=== PATIENT | male | born 1960 | race Caucasian/White ===

== ENCOUNTER 2019-01-21 20:25 | Emergency (ER) | payer MEDICAID ==
[~2019-01-21] VITALS: Ht 177.8 cm; Wt 81.6 kg
--- NOTE | 2019-01-21 20:58 | NUR ---
BIB. TO ER BED 2. AAO X4. NAD. AMBULATORY. C/O DIZZYNESS, LIGHTHEADEDNESS AND BLACK STOOL SINCE THIS MORNING. NO N/V. DENIES CP. NO SOB, BREATHING EVEN AND UNLABORED. AWAITING MD RECINOS
--- NOTE | 2019-01-21 21:00 | NUR ---
LAB AND EKG AT BEDSIDE
[2019-01-21 21:08] LABS: BASOPHILS # (AUTO) 0.1 /CMM (0.0-0.2); BASOPHILS % (AUTO) 0.7 % (0.0-2.0); EOSINOPHILS % (AUTO) 0.2 % (0.0-6.0); HEMATOCRIT 41 % (39-51); HEMOGLOBIN 13.9 g/dL (13.5-17.5); LYMPHOCYTES # (AUTO) 2.5 /CMM (0.8-4.8); LYMPHOCYTES % (AUTO) 21.9 % (20.0-44.0); MEAN CORPUSCULAR HGB CONC 34 g/dl (31.0-36.0); MEAN CORPUSCULAR VOLUME 102 fL (80-96); MONOCYTES % (AUTO) 8.5 % (2.0-12.0); NEUTROPHILS % (AUTO) 68.7 % (43.0-81.0); PLATELET COUNT (AUTO) 257 /CMM (150-450); RED BLOOD CELL COUNT(AUTO) 4.02 MIL/uL (4.5-6.0); WHITE BLOOD COUNT (AUTO) 11.6 K/uL (4.3-11.0)
[2019-01-21 21:12] LABS: CALCIUM, SERUM 9.1 mg/dL (8.5-10.1); CARBON DIOXIDE 25 mmol/L (21-32); CHLORIDE 102 mmol/L (98-107); CREATININE 0.8 mg/dL (0.6-1.3); GLUCOSE 110 mg/dL (74-106); POTASSIUM 4.2 mmol/L (3.5-5.1); SODIUM SERUM 140 mmol/L (136-145); UREA NITROGEN, BLOOD 18 mg/dL (7-18)
[2019-01-21 21:17] LABS: ALANINE AMINOTRANSFERASE 74 U/L (12-78); ALKALINE PHOSPHATASE 84 U/L (46-116); ASPARTATE AMINOTRANSFERASE 84 U/L (15-37); BILIRUBIN,DIRECT 0.1 mg/dL (0.0-0.2); BILIRUBIN,TOTAL 0.4 mg/dL (0.2-1.0)
[2019-01-21] MEDS: NICOTINE PATCH (14MG) 14 MG PATCH.TD24 TD ONE (22:45)
--- NOTE | 2019-01-21 22:45 | NUR ---
NICOTINE PATCH PLACED ON PATIENT. PATCH WAS TAKEN FROM THE FLOOR D/T NICOTINE OATCH NOT AVAILABLE AT [facility] IN ER.
--- NOTE | 2019-01-21 22:46 | NUR ---
RECEIVED A CALL FROM CHRIS SCOTT OF [facility].
[2019-01-21] MEDS: NICOTINE PATCH (14MG) 14 MG PATCH.TD24 TD SCH (22:59)
--- NOTE | 2019-01-21 23:00 | NUR ---
PT ACCEPTED TO [facility], TELE 120-B. ACCEPTED BY DR OSEGUERA. # FOR REPORT [phone]
--- NOTE | 2019-01-21 23:08 | NUR ---
CINDY OCPPOLA ETA 0100 HOURS TRIP#[id number]
[2019-01-21] MEDS: IV NS 0.9% 1,000 ML BAG IV ONE (23:14)
[2019-01-21] MEDS: LORAZEPAM INJ 2 MG/ML VIAL IV ONE (23:50)
--- NOTE | 2019-01-21 23:51 | NUR ---
PT RECEIVED ATIVAN 1MG IV. STOCK DOSE 2MG /ML. WASTED 1MG =0.5ML WITNESSED BY JAI LOREDO
--- NOTE | 2019-01-22 01:21 | NUR ---
REPORT GIVEN TO JAI DELA CRUZ. AMBULANZ AT BEDSIDE TO SKEIN YARN DYER PT. PT IS AAOX4. NAD. BREATHING EVEN AND UNLBORED.
[2019-01-22 01:22] VITALS: BP 139/85
== END 2019-01-22 01:30 ==
LOC: ER 20:31
DX: K92.2 Gastrointestinal hemorrhage, unspecified (principal); R42 Dizziness and giddiness; F10.10 Alcohol abuse, uncomplicated; F17.200 Nicotine dependence, unspecified, uncomplicated; Y90.9 Presence of alcohol in blood, level not specified
CPT/HCPCS: 36415; 71045; 80048; 80076; 84484; 85025; 85730; 86850; 93005; 96361; 96374; 99285; J2060; J7030

== ENCOUNTER 2019-05-03 11:22 | Inpatient (IN) | payer MEDICAID ==
[~2019-05-03] VITALS: Ht 177.8 cm; Wt 79.4 kg
[2019-05-03 11:56] LABS: BASOPHILS % (AUTO) 0.4 % (0.0-2.0); EOSINOPHILS % (AUTO) 0.1 % (0.0-6.0); HEMATOCRIT 43 % (39-51); HEMOGLOBIN 14.6 g/dL (13.5-17.5); LYMPHOCYTES # (AUTO) 1.6 /CMM (0.8-4.8); LYMPHOCYTES % (AUTO) 18.3 % (20.0-44.0); MEAN CORPUSCULAR HGB CONC 34 g/dl (31.0-36.0); MEAN CORPUSCULAR VOLUME 102 fL (80-96); MONOCYTES # (AUTO) 0.7 /CMM (0.1-1.30); MONOCYTES % (AUTO) 8.6 % (2.0-12.0); NEUTROPHILS # (AUTO) 6.2 /CMM (1.8-8.9); NEUTROPHILS % (AUTO) 72.6 % (43.0-81.0); PLATELET COUNT (AUTO) 187 /CMM (150-450); RED BLOOD CELL COUNT(AUTO) 4.25 MIL/uL (4.5-6.0); WHITE BLOOD COUNT (AUTO) 8.6 K/uL (4.3-11.0)
[2019-05-03] MEDS ORDERED: PANTOPRAZOLE 40 MG VIAL ONE (11:56)
[2019-05-03] MEDS ORDERED: ONDANSETRON HCL/PF 4 MG/2 ML VIAL ONE (11:57)
[2019-05-03] MEDS ORDERED: LORAZEPAM INJ 2 MG/ML VIAL ONE ×2 (11:57→13:01)
[2019-05-03] MEDS ORDERED: OCTREOTIDE 100 MCG/ML VIAL ONE (11:57)
[2019-05-03] MEDS ORDERED: PANTOPRAZOLE 80 MG in IV NS 0.9% 500 ML IV ONE (12:00)
[2019-05-03] MEDS ORDERED: NEXIUM 40 MG VIAL IV ONE ×2 (12:00→12:30)
[2019-05-03] MEDS ORDERED: ONDANSETRON HCL/PF 4 MG/2 ML VIAL IVP ONE (12:00)
[2019-05-03] MEDS ORDERED: LORAZEPAM INJ 2 MG/ML VIAL IV ONE (12:00)
[2019-05-03] MEDS ORDERED: OCTREOTIDE 50 MCG/ML AMPUL IV ONE (12:00)
[2019-05-03] MEDS ORDERED: PANTOPRAZOLE 40 MG VIAL IV ONE (12:00)
[2019-05-03] MEDS ORDERED: IV NS 0.9% 1,000 ML BAG IV ONE ×2 (12:00→13:00)
[2019-05-03 12:06] LABS: CREATININE 0.8 mg/dL (0.6-1.3); POTASSIUM 4.3 mmol/L (3.5-5.1)
[2019-05-03] MEDS ORDERED: NICO-676 TD (12:06)
[2019-05-03 12:12] LABS: ALBUMIN 4.2 g/dL (3.4-5.0); BILIRUBIN,DIRECT 0.2 mg/dL (0.0-0.2); BILIRUBIN,TOTAL 0.6 mg/dL (0.2-1.0)
[2019-05-03] MEDS ORDERED: LORAZEPAM INJ 2 MG/ML VIAL IVP ONE (13:00)
[2019-05-03 16:08] VITALS: BP 123/70
[2019-05-03] MEDS: PANTOPRAZOLE 40 MG TABLET.DR PO SCH (17:02)
[2019-05-03] MEDS: FOLIC ACID 1 MG TABLET PO SCH (17:58)
[2019-05-03] MEDS: THIAMINE HCL 100 MG TABLET PO SCH (17:59)
[2019-05-03] MEDS: LORAZEPAM 1 MG TABLET PO SCH ×2 (17:59→23:06)
[2019-05-03] MEDS: MULTIVITAMINS,THERAGRAN 1 UDTAB TABLET PO SCH (17:59)
[2019-05-03] MEDS: NICOTINE PATCH (21MG) 21 MG PATCH.TD24 TD SCH (17:59)
[2019-05-03] MEDS: MAGNESIUM OXIDE 400 MG TABLET PO SCH (17:59)
[2019-05-03] MEDS ORDERED: IV NS 0.9% 1,000 ML IV PRN (18:00)
[2019-05-03 20:00] VITALS: BP 142/89
[2019-05-03 20:11] VITALS: BP 142/89
[2019-05-04] VITALS: BP 142/91
[2019-05-04 04:00] VITALS: BP 138/95
[2019-05-04] MEDS: LORAZEPAM 1 MG TABLET PO SCH ×4 (06:28→23:03)
[2019-05-04 06:37] LABS: BASOPHILS % (AUTO) 0.4 % (0.0-2.0); HEMATOCRIT 40 % (39-51); HEMOGLOBIN 13.2 g/dL (13.5-17.5); LYMPHOCYTES % (AUTO) 27.7 % (20.0-44.0); MEAN CORPUSCULAR HGB CONC 33 g/dl (31.0-36.0); MEAN CORPUSCULAR VOLUME 103 fL (80-96); MONOCYTES # (AUTO) 0.7 /CMM (0.1-1.30); NEUTROPHILS # (AUTO) 4.6 /CMM (1.8-8.9); NEUTROPHILS % (AUTO) 61.9 % (43.0-81.0); PLATELET COUNT (AUTO) 141 /CMM (150-450); RED BLOOD CELL COUNT(AUTO) 3.86 MIL/uL (4.5-6.0); WHITE BLOOD COUNT (AUTO) 7.4 K/uL (4.3-11.0)
[2019-05-04] MEDS ORDERED: PANTOPRAZOLE 40 MG TABLET.DR PO SCH (07:30)
[2019-05-04 08:00] VITALS: BP 149/95
[2019-05-04] MEDS: FOLIC ACID 1 MG TABLET PO SCH (08:26)
[2019-05-04] MEDS: MULTIVITAMINS,THERAGRAN 1 UDTAB TABLET PO SCH (08:26)
[2019-05-04] MEDS: NICOTINE PATCH (21MG) 21 MG PATCH.TD24 TD SCH (08:26)
[2019-05-04] MEDS: PANTOPRAZOLE 40 MG TABLET.DR PO SCH ×2 (08:26→16:56)
[2019-05-04] MEDS: THIAMINE HCL 100 MG TABLET PO SCH (08:26)
[2019-05-04] MEDS: MAGNESIUM OXIDE 400 MG TABLET PO SCH (08:26)
[2019-05-04 16:00] VITALS: BP 149/96
[2019-05-04] MEDS ORDERED: ZOLPIDEM TARTRATE 10 MG TABLET PO PRN (19:00)
[2019-05-04 20:15] VITALS: BP 142/87
[2019-05-05] MEDS: LORAZEPAM 1 MG TABLET PO SCH ×2 (05:03→11:56)
[2019-05-05 08:00] VITALS: BP 135/88
[2019-05-05] MEDS: MAGNESIUM OXIDE 400 MG TABLET PO SCH (08:48)
[2019-05-05] MEDS: NICOTINE PATCH (21MG) 21 MG PATCH.TD24 TD SCH (08:48)
[2019-05-05] MEDS: PANTOPRAZOLE 40 MG TABLET.DR PO SCH (08:48)
[2019-05-05] MEDS: THIAMINE HCL 100 MG TABLET PO SCH (08:48)
[2019-05-05] MEDS: MULTIVITAMINS,THERAGRAN 1 UDTAB TABLET PO SCH (08:48)
[2019-05-05] MEDS: FOLIC ACID 1 MG TABLET PO SCH (08:48)
[2019-05-05] MEDS ORDERED: MIDAZOLAM HCL 2 MG/2ML VIAL ONE (10:57)
[2019-05-05 11:48] VITALS: BP 149/88
[2019-05-05] MEDS ORDERED: SUCRALFATE 1 G/10 ML UDC PO SCH (12:00)
== END 2019-05-05 15:40 | disposition home or self-care (01) | DRG 241 ==
LOC: ER 11:25 → TELE 14:31 → MED 05-04 11:22
PROVIDERS: ADMIT Internal Medicine; ATTEND Internal Medicine
PROC: 0DB78ZX Excision of Stomach, Pylorus, Via Natural or Artificial Opening Endoscopic, Diagnostic (ICD-10-PCS; principal; 2019-05-05)
PROC: 0DB98ZX Excision of Duodenum, Via Natural or Artificial Opening Endoscopic, Diagnostic (ICD-10-PCS; principal; 2019-05-05)
DX: K29.80 Duodenitis without bleeding (principal); D75.89 Other specified diseases of blood and blood-forming organs; F10.239 Alcohol dependence with withdrawal, unspecified; M19.90 Unspecified osteoarthritis, unspecified site; Z72.0 Tobacco use; Y90.9 Presence of alcohol in blood, level not specified; K29.70 Gastritis, unspecified, without bleeding; K44.9 Diaphragmatic hernia without obstruction or gangrene; K20.9 Esophagitis, unspecified; Z82.3 Family history of stroke
CPT/HCPCS: 36415; 71045-TC; 76700-TC; 80048-TC; 80076-TC; 83690-TC; 85025-TC; 85730-TC; 86850-TC; 87081-TC; C9113; G0378; J2060; J2250; J2354; J2405; J2704; J3490; J7030

== ENCOUNTER 2019-10-21 10:22 | Emergency (ER) | payer MEDICAID, OTHER ==
[~2019-10-21] VITALS: Ht 180.3 cm; Wt 78.0 kg
[~2019-10-21 10:22] MED LIST: NICO-676 TD
[2019-10-21] MEDS ORDERED: LIDOCAINE VISCOUS 2% UD 15 ML UDC MM ONE (11:00)
[2019-10-21] MEDS ORDERED: ONDANSETRON HCL/PF 4 MG/2 ML VIAL IVP ONE (11:00)
[2019-10-21] MEDS ORDERED: LORAZEPAM INJ 2 MG/ML VIAL IV ONE (11:00)
[2019-10-21] MEDS ORDERED: MAG HYDROX/AL HYDROX/SIMETH 30 ML UDC PO ONE (11:00)
[2019-10-21] MEDS ORDERED: IV NS 0.9% 1,000 ML BAG IV ONE (11:00)
--- NOTE | 2019-10-21 11:00 | NUR ---
patient came in to the er c/o weakness, loss of appetite, +n/v and diarrhea x 1 week, on rooma ir, breathing evenly and unlabored. connected to the monitor and pulse ox. kept comfortable, will continue to monitor accordingly.
[2019-10-21] MEDS ORDERED: MAG HYDROX/AL HYDROX/SIMETH 30 ML UDC ONE ×2 (11:08→11:09)
[2019-10-21] MEDS ORDERED: LIDOCAINE VISCOUS 2% UD 15 ML UDC ONE (11:08)
[2019-10-21] MEDS ORDERED: ONDANSETRON HCL/PF 4 MG/2 ML VIAL ONE (11:09)
[2019-10-21] MEDS ORDERED: LORAZEPAM INJ 2 MG/ML VIAL ONE (11:09)
[2019-10-21 11:10] LABS: BASOPHILS % (AUTO) 0.6 % (0.0-2.0); EOSINOPHILS % (AUTO) 0.2 % (0.0-6.0); HEMATOCRIT 42 % (39-51); HEMOGLOBIN 14.2 g/dL (13.5-17.5); LYMPHOCYTES # (AUTO) 1.5 /CMM (0.8-4.8); LYMPHOCYTES % (AUTO) 21.8 % (20.0-44.0); MEAN CORPUSCULAR HGB CONC 34 g/dl (31.0-36.0); MEAN CORPUSCULAR VOLUME 103 fL (80-96); MONOCYTES # (AUTO) 0.8 /CMM (0.1-1.30); MONOCYTES % (AUTO) 11.5 % (2.0-12.0); NEUTROPHILS # (AUTO) 4.7 /CMM (1.8-8.9); NEUTROPHILS % (AUTO) 65.9 % (43.0-81.0); PLATELET COUNT (AUTO) 135 /CMM (150-450); RED BLOOD CELL COUNT(AUTO) 4.06 MIL/uL (4.5-6.0); WHITE BLOOD COUNT (AUTO) 7.1 K/uL (4.3-11.0)
[2019-10-21 11:18] LABS: CALCIUM, SERUM 9.2 mg/dL (8.5-10.1); CARBON DIOXIDE 25 mmol/L (21-32); CHLORIDE 101 mmol/L (98-107); CREATININE 0.8 mg/dL (0.6-1.3); GLUCOSE 115 mg/dL (74-106); SODIUM SERUM 137 mmol/L (136-145); UREA NITROGEN, BLOOD 11 mg/dL (7-18)
[2019-10-21 11:23] LABS: ALANINE AMINOTRANSFERASE 80 U/L (12-78); ALBUMIN 3.9 g/dL (3.4-5.0); ALKALINE PHOSPHATASE 89 U/L (46-116); ASPARTATE AMINOTRANSFERASE 133 U/L (15-37); BILIRUBIN,DIRECT 0.2 mg/dL (0.0-0.2); BILIRUBIN,TOTAL 0.7 mg/dL (0.2-1.0); TOTAL PROTEIN, SERUM 6.6 g/dL (6.4-8.2)
[2019-10-21 12:38] VITALS: BP 135/71
--- NOTE | 2019-10-21 12:38 | NUR ---
Patient discharged to home in stable condition. Written and verbal after care instructions given. Patient verbalizes understanding of instruction.IV removed. Catheter intact and site benign. Pressure and 4x4 applied to site. No bleeding noted.
== END 2019-10-21 12:38 | disposition home or self-care (01) ==
LOC: ER 10:26
DX: K29.20 Alcoholic gastritis without bleeding (principal); F10.10 Alcohol abuse, uncomplicated; R53.1 Weakness; F17.210 Nicotine dependence, cigarettes, uncomplicated; Y90.9 Presence of alcohol in blood, level not specified
CPT/HCPCS: 36415; 74176; 80048; 80076; 84484; 85025; 85730; 96361; 96374; 96375; 99284; J2060; J2405; J7030

== ENCOUNTER 2020-03-18 07:44 | Inpatient (IN) | payer MEDICAID ==
[~2020-03-18] VITALS: Ht 180.3 cm; Wt 79.4 kg
--- NOTE | 2020-03-18 08:03 | NUR ---
CAME IN FOR GENERALIZED WEAKNESS, BEEN VOMITING "BLOOD" 8 EPISODES SINCE LAST NIGHT, TO ER BED 11, HOOKED TO MONITOR, CHANGED TO HOSP GOWN, WARM BLANKET PROVIDED, PATIENT AAO x 4, BREATHING EVEN AND UNLABORED. AWAITING MD RECINOS.
--- NOTE | 2020-03-18 08:17 | NUR ---
DR ARSHAD AT BEDSIDE
[2020-03-18] MEDS ORDERED: ONDANSETRON HCL/PF 4 MG/2 ML VIAL ONE (08:29)
[2020-03-18] MEDS ORDERED: METOCLOPRAMIDE HCL 10 MG/2 ML VIAL ONE (08:29)
[2020-03-18] MEDS ORDERED: LORAZEPAM INJ 2 MG/ML VIAL ONE ×2 (08:29→11:05)
[2020-03-18] MEDS ORDERED: PANTOPRAZOLE 80 MG in IV NS 0.9% 500 ML IV ONE (08:30)
[2020-03-18] MEDS ORDERED: ONDANSETRON HCL/PF 4 MG/2 ML VIAL IVP ONE (08:30)
[2020-03-18] MEDS ORDERED: PANTOPRAZOLE 80 MG in IV NS 0.9% 100 ML IV ONE (08:30)
[2020-03-18] MEDS ORDERED: IV NS 0.9% 1,000 ML BAG IV ONE (08:30)
[2020-03-18] MEDS ORDERED: LORAZEPAM INJ 2 MG/ML VIAL IV ONE ×2 (08:30→10:00)
[2020-03-18] MEDS ORDERED: METOCLOPRAMIDE HCL 10 MG/2 ML VIAL IV ONE (08:30)
--- NOTE | 2020-03-18 08:35 | NUR ---
CALLED PHARMACY FOR PROTONIX DRIP
[2020-03-18 08:37] LABS: BASOPHILS % (AUTO) 0.3 % (0.0-2.0); HEMATOCRIT 36 % (39-51); HEMOGLOBIN 11.9 g/dL (13.5-17.5); LYMPHOCYTES # (AUTO) 1.2 /CMM (0.8-4.8); LYMPHOCYTES % (AUTO) 14.1 % (20.0-44.0); MEAN CORPUSCULAR HGB CONC 33 g/dl (31.0-36.0); MEAN CORPUSCULAR VOLUME 111 fL (80-96); MONOCYTES # (AUTO) 0.7 /CMM (0.1-1.30); MONOCYTES % (AUTO) 7.8 % (2.0-12.0); NEUTROPHILS # (AUTO) 6.5 /CMM (1.8-8.9); NEUTROPHILS % (AUTO) 77.8 % (43.0-81.0); PLATELET COUNT (AUTO) 226 /CMM (150-450); RED BLOOD CELL COUNT(AUTO) 3.22 MIL/uL (4.5-6.0); WHITE BLOOD COUNT (AUTO) 8.3 K/uL (4.3-11.0)
[2020-03-18 08:42] LABS: CALCIUM, SERUM 8.9 mg/dL (8.5-10.1); CARBON DIOXIDE 18 mmol/L (21-32); CHLORIDE 100 mmol/L (98-107); CREATININE 1.5 mg/dL (0.6-1.3); GLUCOSE 161 mg/dL (74-106); POTASSIUM 4.4 mmol/L (3.5-5.1); SODIUM SERUM 144 mmol/L (136-145); UREA NITROGEN, BLOOD 39 mg/dL (7-18)
--- NOTE | 2020-03-18 08:47 | NUR ---
CALLED PHARMACY TO FOLLOW UP FOR PROTONIX DRIP
[2020-03-18 08:49] LABS: ALANINE AMINOTRANSFERASE 129 U/L (12-78); ALBUMIN 3.9 g/dL (3.4-5.0); ALKALINE PHOSPHATASE 65 U/L (46-116); ASPARTATE AMINOTRANSFERASE 181 U/L (15-37); BILIRUBIN,DIRECT 0.5 mg/dL (0.0-0.2); BILIRUBIN,TOTAL 1.7 mg/dL (0.2-1.0); LIPASE 58 U/L (73-393)
--- NOTE | 2020-03-18 09:06 | NUR ---
CALLED PHARMACY TO FOLLOW UP FOR PROTONIX DRIP
[2020-03-18] MEDS ORDERED: CHOL500052 MT (09:07)
[2020-03-18] MEDS ORDERED: OMEP40CA13 MT (09:07)
[2020-03-18] MEDS ORDERED: LISI10TA5 MT (09:07)
--- NOTE | 2020-03-18 09:32 | NUR ---
SPOKE TO NUNU (DEVICE TEST ENGINEER [phone]) OF [facility], INFORMED THAT DEVICE TEST ENGINEER IS STILL TRYING TO GET IN TOUCH WITH ADMITTING PHYSICIAN.
--- NOTE | 2020-03-18 10:06 | NUR ---
BED ASSIGNED:315-2
--- NOTE | 2020-03-18 10:17 | NUR ---
REPORT GIVEN TO BENITO VERGARA OF TELE UNIT
[2020-03-18 10:25] LABS: BAND % (MANUAL) 3 % (0.0-5.0); LYMPHOCYTES % (MANUAL) 10 % (16-48); MONOCYTES % (MANUAL) 5 % (0-11.0); MYELOCYTES % 3 % (0-0); NEUTROPHILS % (MANUAL) 79 (42-76)
--- NOTE | 2020-03-18 11:19 | NUR ---
rn notes patient received on room air, no sob noted, patient denies pain at this time. Some N/V but not actively vomitting. R AC 18 a this time. bed at the lowest setting, call light within reach, side rails up x2.
[2020-03-18 11:23] VITALS: BP 98/83
--- NOTE | 2020-03-18 13:21 | NUR ---
rn notes Dr. Guevara made aware that his patient is admitted earlier.
[2020-03-18 16:00] VITALS: BP 131/68
[2020-03-18] MEDS: IV 1/2NS 1000 ML 1,000 ML IV PRN (16:33)
[2020-03-18] MEDS: NICOTINE PATCH (21MG) 21 MG PATCH.TD24 TD SCH (16:48)
[2020-03-18] MEDS: METOPROLOL TARTRATE 25 MG TABLET PO SCH (16:49)
[2020-03-18] MEDS: Magnesium 1GM/D5W 100ML PREMIX 100 ML IV SCH ×3 (16:49→19:00)
--- NOTE | 2020-03-18 17:11 | NUR ---
rn notes patient remains on room air, no sob noted, patient shows no sob at this time and denies pain. A/O x4 and remains tachy. Clear liquid diet at this time, lactic acid trending down. Dr. Guevara wants a GI consult and told him that he is the one to call Dr. Yu, he replied with " ER should have been the one to call him". bed at the lowest setting, call light within reach, side rails up x2.
[2020-03-18] MEDS: LORAZEPAM 1 MG TABLET PO PRN (17:45)
--- NOTE | 2020-03-18 19:30 | NUR ---
telemarketing sales representative opening notes received patient in bed. a/ox4. tolerating room air. respirations are even and unlabored. no s/s sob noted. no c/o pain at this time. external tele monitor reads sinus tachycardia hr 108. in no apparent distress. iv access in rac#18 running 1/2 ns @75ml/hr. bed is low and locked, hob elevated in semi fowlers, side rials up x2. call light within reach. will continue to monitor.
[2020-03-18 20:00] VITALS: BP 130/81
[2020-03-18 20:35] VITALS: BP 130/81
--- NOTE | 2020-03-18 22:00 | NUR ---
telecommunicator supervisor note patient signed consent for smoking. made aware this is the only time to smoke during this shift and next chance is next shift after 0700. del dunlap accompanied patient to smoking area in a wheel chair. came back at 2200. will continue to monitor.
[2020-03-19] VITALS (8 sets, daily range): BP systolic 95–121; BP diastolic 66–73
[2020-03-19] MEDS: LORAZEPAM 1 MG TABLET PO PRN ×4 (00:16→23:46)
--- NOTE | 2020-03-19 00:16 | NUR ---
PERSONAL LINES ACCOUNT EXECUTIVE NOTE ADMINISTERED PRN ATIVAN 2MG PER PATIENT REQUEST. WILL CONTINUE TO MONITOR.
--- NOTE | 2020-03-19 06:17 | NUR ---
telegraphic typewriter mechanic closing notes patient in bed. a/ox4. tolerating room air. respirations are even and unlabored. no sob noted. no c/o pain. external tele monitor reads sinus tachycardia. no distress. iv access maintained in rac#18 running 1/2 ns @75ml/hr. bed remains low and locked, hob elevated in semi fowlers, side rials up x2. call light within reach. will endorse to next shift
[2020-03-19] MEDS: PANTOPRAZOLE 40 MG TABLET.DR PO SCH (06:42)
[2020-03-19 07:36] LABS: OCCULT BLOOD STOOL NEGATIVE (NEGATIVE)
[2020-03-19 07:36] LABS: CALCIUM, SERUM 8.6 mg/dL (8.5-10.1); CREATININE 0.6 mg/dL (0.6-1.3); POTASSIUM 3.7 mmol/L (3.5-5.1)
--- NOTE | 2020-03-19 07:37 | NUR ---
assembler wire mesh gate Notes Received patient in bed resting comfortably in moderate high back rest. A/O x 4. respirations are even and unlabored. No signs of distress noted at this time. On tele monitor reads sinus tachycardia with HR of 100's. IV fluids maintained on RAC #18 running 1/2 NS @75ml/hr. Patent and intact, Safety measures in place, bed remains low and locked, side rials up x2. call light within reach. Will continue to monitor.
[2020-03-19] MEDS: FOLIC ACID 1 MG TABLET PO SCH (08:37)
[2020-03-19] MEDS: NICOTINE PATCH (21MG) 21 MG PATCH.TD24 TD SCH (08:37)
[2020-03-19] MEDS: THIAMINE HCL 100 MG TABLET PO SCH (08:37)
[2020-03-19] MEDS: MULTIVITAMINS,THERAGRAN 1 UDTAB TABLET PO SCH (08:37)
[2020-03-19] MEDS: METOPROLOL TARTRATE 25 MG TABLET PO SCH ×2 (08:38→16:37)
[2020-03-19 09:09] LABS: BASOPHILS % (AUTO) 0.6 % (0.0-2.0); EOSINOPHILS % (AUTO) 1.3 % (0.0-6.0); HEMATOCRIT 26 % (39-51); HEMOGLOBIN 8.8 g/dL (13.5-17.5); LYMPHOCYTES # (AUTO) 1.5 /CMM (0.8-4.8); LYMPHOCYTES % (AUTO) 29.5 % (20.0-44.0); MEAN CORPUSCULAR HGB CONC 34 g/dl (31.0-36.0); MEAN CORPUSCULAR VOLUME 108 fL (80-96); MONOCYTES # (AUTO) 0.2 /CMM (0.1-1.30); MONOCYTES % (AUTO) 4.6 % (2.0-12.0); NEUTROPHILS # (AUTO) 3.2 /CMM (1.8-8.9); PLATELET COUNT (AUTO) 120 /CMM (150-450); RED BLOOD CELL COUNT(AUTO) 2.38 MIL/uL (4.5-6.0); WHITE BLOOD COUNT (AUTO) 5.1 K/uL (4.3-11.0)
--- NOTE | 2020-03-19 18:49 | NUR ---
RN NOTES Patient in bed resting comfortably in moderate high back rest. A/O x 4. respirations are even and unlabored. No signs of distress noted throughout the shift. IV fluids maintained on RAC #18 running 1/2 NS @75ml/hr. Patent and intact, Safety measures in place, bed remains low and locked, side rials up x2. call light within reach. Will Endorse to night monitor nurse for lilian.
[2020-03-19] MEDS ORDERED: ANESTHESIA TRAY IN PYXIS 1 EA TRAY MC ONE (19:16)
--- NOTE | 2020-03-19 20:00 | NUR ---
MS RN OPENING NOTES RECEIVED PATIENT IN BED, AWAKE, A/0X 4, AMBULATORY, BREATHING AT ROOM, UNLABORED BREATHING, LAC #20 1/2NS @ 75ML/HR, INFORMED PATIENT REGARDING NPO AT MIDNIGHT, SIDE RAILS UP.
[2020-03-20] MEDS: IV 1/2NS 1000 ML 1,000 ML IV PRN (00:14)
--- NOTE | 2020-03-20 06:25 | NUR ---
MS RN CLOSING NOTES ENDORSED PATIENT IN BED, AWAKE, A/0X 4, AMBULATORY, BREATHING AT ROOM, UNLABORED BREATHING, LAC #20 1/2NS @ 75ML/HR INFUSING WELL, NO REDNESS OR INFILTRATION NOTED, ADVICED PATIENT NPO AT MIDNIGHT, SIDE RAILS UP FOR SAFETY.
[2020-03-20 07:00] VITALS: BP 107/63
--- NOTE | 2020-03-20 07:00 | NUR ---
MS RN OPENING NOTES RECEIVED PATIENT IN BED, AWAKE, A/0X 4, AMBULATORY, BREATHING AT ROOM, UNLABORED BREATHING, LAC #20 1/2NS @ 75ML/HR, FOR EGD PROCEDURE ALL CONSENTS HAS BEEN SIGNED. NPO POST MIDNIGHT, .CALL LIGHT PLACED WITHIN REACH. SIDE RAILS UP.
[2020-03-20] MEDS ORDERED: FENTANYL PF 100MCG/2ML AMPUL ONE (07:22)
[2020-03-20] MEDS ORDERED: MIDAZOLAM HCL 2 MG/2ML VIAL ONE (07:22)
[2020-03-20] MEDS: PANTOPRAZOLE 40 MG TABLET.DR PO SCH (07:30)
--- NOTE | 2020-03-20 07:30 | NUR ---
PT IS BROUGHT TO O.R. FOR EGD PROCEDURE WITH ALL THE CONSENTS SIGNED.PT IS NPO AND IS COMPLIANT.WITH STABLE V/S.
[2020-03-20 08:00] VITALS: BP 123/88
--- NOTE | 2020-03-20 09:20 | NUR ---
RECEIVED PT FROM O.R. S/P EGD WITH BIOPSY WITH RESULT OF GASTRITIS,DUODENITIS WITH NO BLEEDING NOTED. NO BANDING NEEDED.PT UNDERWENT GENERALIZED ANAESTHESIA WITH STABLE V/S. T97.8 BP 128/80 HR 117 RR 20 WITH O2 SAT OF 98%.PT EXPRESSED ANGER AND FRUSTRATION OF NOT BEING TREATED WELL WHILE IN O.R. WAKING HIM UP TO A JOLT THAT HE DOESN'T EVEN REMEMBER WHERE HE WAS DUE TO GEN ANAESTHESIA WHICH SCARED THE HELL OUT OF HIM STATED BY THE PT. REPORTED TO THE LAV CREWMAN. PT IS SO EAGER TO GO HOME INSPITE OF EXPLAINING THAT HE WAS GIVEN GENERAL ANAESTHESIA AND STILL TO BE MONITORED BUT PT INSISTS TO GO HOME.PT KEEP VERBALIZING THAT HE DOESN'T WANT TO COME BACK IN [facility] ANYMORE FOR BEING TREATED SO BAD. EMOTIONAL SUPPORT AND ACTIVE LISTENING PROVIDED. EXPLAINED THAT HE CAN FILE A COMPLAINT IF HE WANTS TO WITH CALM APPROACH. AM MEDS AND ATIVAN GIVEN. WILL NOTIFY DR ANDUJAR AND WILL CONTINUE TO MONITOR.
--- NOTE | 2020-03-20 09:37 | NUR ---
DR ANDUJAR RETURNED CALL WITH DISCHARGE ORDERS AND CARRIED OUT SAYING THE PT HAS PPI AT THE PT'S HOME.NOTIFIED THE PT. PT INSISTS HE WANTS TO GO HOME RIGHT AWAY AND EVEN WENT STRAIGHT TO THE ELEVATOR TO SMOKE BY HIMSELF REFUSING TO BE ACCOMPANIED BY STAFF SAYING HE IS NOT A LITTLE KID ANYMORE AND WILL COME BACK TO GET THE DISCHARGE PAPERS. CLOSELY MONITORED THE PT FROM A DISTANCE.
[2020-03-20] MEDS: MULTIVITAMINS,THERAGRAN 1 UDTAB TABLET PO SCH (09:39)
[2020-03-20] MEDS: FOLIC ACID 1 MG TABLET PO SCH (09:39)
[2020-03-20] MEDS: THIAMINE HCL 100 MG TABLET PO SCH (09:40)
[2020-03-20] MEDS: NICOTINE PATCH (21MG) 21 MG PATCH.TD24 TD SCH (09:40)
[2020-03-20] MEDS: LORAZEPAM 1 MG TABLET PO PRN (09:43)
[2020-03-20 09:44] VITALS: BP 128/80
[2020-03-20] MEDS: METOPROLOL TARTRATE 25 MG TABLET PO SCH (09:44)
--- NOTE | 2020-03-20 10:00 | NUR ---
DISCHARGED PT HOME VIA STABLE V/S WITH THE DISCHARGE INSTRUCTIONS GIVEN. ENCOURAGED PT TO STAY EXPLAINING THE RISKS AND BENEFITS OF BEING UNDER GEN ANESTHESIA, BUT PT INSISTS TO REFUSE SAYING HE IS SO UPSET AND TRAUMATIZED WITH THE O.R. STAFF FOR DOING THAT TO HIM. APPROACHED PT CALMLY AND ASSURED THAT WE WILL TAKE CARE OF HIS CONCERN, PT STILL INSISTS TO GO HOME. HE EVEN VERBALIZED THAT THE 3RD FLOOR STAFF ARE SWEET AND WONDERFUL.IV H/L REMOVED TO LT AC WITH NO BLEEDING NOTED. ACCOMPANIED PT TO THE LOBBY.PT REFUSED TO HAVE HIS BELONGINGS CHECKED AND WAS JUST VERY EAGER TO GO HOME.
== END 2020-03-20 10:45 | disposition home or self-care (01) | DRG 241 ==
LOC: ER 07:48 → TELE 10:49 → MED 03-19 08:34
PROVIDERS: ADMIT Internal Medicine; ATTEND Internal Medicine
PROC: 0DB68ZX Excision of Stomach, Via Natural or Artificial Opening Endoscopic, Diagnostic (ICD-10-PCS; principal; 2020-03-20)
DX: K29.91 Gastroduodenitis, unspecified, with bleeding (principal); E87.2 Acidosis; K70.0 Alcoholic fatty liver; K76.89 Other specified diseases of liver; K26.4 Chronic or unspecified duodenal ulcer with hemorrhage; F10.10 Alcohol abuse, uncomplicated; K52.9 Noninfective gastroenteritis and colitis, unspecified; Z72.0 Tobacco use; I70.8 Atherosclerosis of other arteries; M19.90 Unspecified osteoarthritis, unspecified site; F41.9 Anxiety disorder, unspecified; R00.0 Tachycardia, unspecified; G62.1 Alcoholic polyneuropathy; N17.0 Acute kidney failure with tubular necrosis
CPT/HCPCS: 36415; 71045-TC; 80048-TC; 80076-TC; 82272-TC; 83605-TC; 83690-TC; 84484-TC; 85025-TC; 85730-TC; 86850-TC; 87040-TC; 87081-TC; 88305-TC; 88312-TC; 88313-TC; C9113; G0378; J0330; J2060; J2250; J2405; J2704; J2765; J3010; J3475; J3490; J7030

== ENCOUNTER 2020-06-19 19:35 | Emergency (ER) | payer MEDICAID ==
[~2020-06-19] VITALS: Ht 180.3 cm; Wt 79.4 kg
[~2020-06-19 19:35] MED LIST changes: +CHOL500052 MT; +LISI10TA5 MT; +OMEP40CA13 MT
--- NOTE | 2020-06-19 19:53 | NUR ---
BIBSELF C/O EPISODE OF BLACK TARY STOOL X 3 HRS AGO. HX ULCERS. PT TO BED 1, AAOX4, -SOB, NAD NOTED, VSS, PENDING MD RECINOS
[2020-06-19] MEDS ORDERED: LORAZEPAM INJ 2 MG/ML VIAL ONE (20:57)
[2020-06-19 21:01] LABS: BASOPHILS % (AUTO) 0.4 % (0.0-2.0); EOSINOPHILS % (AUTO) 0.1 % (0.0-6.0); HEMATOCRIT 41 % (39-51); HEMOGLOBIN 13.8 g/dL (13.5-17.5); LYMPHOCYTES # (AUTO) 1.9 /CMM (0.8-4.8); LYMPHOCYTES % (AUTO) 20.4 % (20.0-44.0); MEAN CORPUSCULAR HGB CONC 34 g/dl (31.0-36.0); MEAN CORPUSCULAR VOLUME 100 fL (80-96); MONOCYTES # (AUTO) 1.1 /CMM (0.1-1.30); MONOCYTES % (AUTO) 11.9 % (2.0-12.0); NEUTROPHILS # (AUTO) 6.3 /CMM (1.8-8.9); NEUTROPHILS % (AUTO) 67.2 % (43.0-81.0); PLATELET COUNT (AUTO) 210 /CMM (150-450); RED BLOOD CELL COUNT(AUTO) 4.08 MIL/uL (4.5-6.0); WHITE BLOOD COUNT (AUTO) 9.4 K/uL (4.3-11.0)
[2020-06-19] MEDS: IV NS 0.9% 1,000 ML BAG IV ONE (21:08)
[2020-06-19] MEDS: LORAZEPAM INJ 2 MG/ML VIAL IV ONE (21:08)
[2020-06-19 21:10] LABS: CALCIUM, SERUM 9.3 mg/dL (8.5-10.1); CREATININE 0.8 mg/dL (0.6-1.3); POTASSIUM 4.2 mmol/L (3.5-5.1)
[2020-06-19 21:15] LABS: ALBUMIN 3.8 g/dL (3.4-5.0); BILIRUBIN,DIRECT 0.1 mg/dL (0.0-0.2); BILIRUBIN,TOTAL 0.4 mg/dL (0.2-1.0); TOTAL PROTEIN, SERUM 6.6 g/dL (6.4-8.2)
[2020-06-19 22:00] LABS: OCCULT BLOOD STOOL NEGATIVE (NEGATIVE)
--- NOTE | 2020-06-19 22:20 | NUR ---
Patient discharged to home in stable condition. Written and verbal after care instructions given. Patient verbalizes understanding of instruction. IV removed. Catheter intact and site benign. Pressure and 4x4 applied to site. No bleeding noted.
[2020-06-19 22:56] VITALS: BP 129/90
== END 2020-06-19 22:20 | disposition home or self-care (01) ==
LOC: ER 19:39
DX: R53.1 Weakness (principal); F10.20 Alcohol dependence, uncomplicated; R42 Dizziness and giddiness; F17.200 Nicotine dependence, unspecified, uncomplicated; Z79.899 Other long term (current) drug therapy; Y90.9 Presence of alcohol in blood, level not specified
CPT/HCPCS: 36415; 80048; 80076; 82272; 83690; 85025; 85730; 86850; 96361; 96374; 99283; J2060; J7030

== ENCOUNTER 2020-12-26 08:47 | Emergency (ER) | payer MEDICAID ==
[~2020-12-26] VITALS: Ht 180.3 cm; Wt 79.4 kg
[~2020-12-26 08:47] MED LIST changes: +LISI10TA29 MT; -LISI10TA5 MT
[2020-12-26] MEDS ORDERED: LIDOCAINE VISCOUS 2% UD 15 ML UDC ONE (09:04)
[2020-12-26] MEDS ORDERED: MAG HYDROX/AL HYDROX/SIMETH 30 ML UDC ONE (09:04)
[2020-12-26] MEDS ORDERED: ONDANSETRON HCL/PF 4 MG/2 ML VIAL ONE (09:04)
--- NOTE | 2020-12-26 09:14 | NUR ---
BIBS TO ER BED 7. AAOX4. NOT IN RESP DISTRESS. AMBULATORY. CAME IN FOR NAUSEA AND VOMMITING. PER PT, HE BEEN VOMMITING Q AM FOR THE PAST WEEKS. PT ALSO VERBALIZED THAT HE HAS POOR APPETITE FOR X 3 WEEKS, CANT KEEP FOOD DOWN. PT REPORTS THAT HE HAS GERD AND NOT TAKING ANY MEDICATION. PT IS ALSO A DAILY ALCOHOL DRINKING. PT NOTED TACHYCARDIC IN THE 130S. MD WAS AT THE BEDSIDE FOR EVAL. ORDES RECEIVED, NOTED AND CARRIED OUT. IV LINE ESTABLISHED ON LFA 18G, BLOOD DRAWN AND GIVEN TO PHELB AT BEDSIDE. PT ON MONITOR
[2020-12-26 09:30] LABS: BASOPHILS % (AUTO) 0.5 % (0.0-2.0); EOSINOPHILS % (AUTO) 0.6 % (0.0-6.0); HEMATOCRIT 37 % (39-51); HEMOGLOBIN 12.5 g/dL (13.5-17.5); LYMPHOCYTES # (AUTO) 1.8 /CMM (0.8-4.8); LYMPHOCYTES % (AUTO) 28.7 % (20.0-44.0); MEAN CORPUSCULAR HGB CONC 34 g/dl (31.0-36.0); MEAN CORPUSCULAR VOLUME 109 fL (80-96); MONOCYTES # (AUTO) 0.8 /CMM (0.1-1.30); MONOCYTES % (AUTO) 13.3 % (2.0-12.0); NEUTROPHILS # (AUTO) 3.5 /CMM (1.8-8.9); NEUTROPHILS % (AUTO) 56.9 % (43.0-81.0); PLATELET COUNT (AUTO) 135 /CMM (150-450); RED BLOOD CELL COUNT(AUTO) 3.35 MIL/uL (4.5-6.0); WHITE BLOOD COUNT (AUTO) 6.2 K/uL (4.3-11.0)
[2020-12-26] MEDS ORDERED: LIDOCAINE VISCOUS 2% UD 15 ML UDC MM ONE (09:30)
[2020-12-26] MEDS ORDERED: IV NS 0.9% 1,000 ML BAG IV ONE (09:30)
[2020-12-26] MEDS ORDERED: MAG HYDROX/AL HYDROX/SIMETH 30 ML UDC PO ONE (09:30)
[2020-12-26] MEDS ORDERED: ONDANSETRON HCL/PF 4 MG/2 ML VIAL IVP ONE (09:30)
[2020-12-26 09:39] LABS: CALCIUM, SERUM 8.8 mg/dL (8.5-10.1); CREATININE 0.8 mg/dL (0.6-1.3); POTASSIUM 3.2 mmol/L (3.5-5.1)
[2020-12-26 09:45] LABS: ALBUMIN 3.4 g/dL (3.4-5.0); BILIRUBIN,DIRECT 0.7 mg/dL (0.0-0.2); BILIRUBIN,TOTAL 1.3 mg/dL (0.2-1.0); TOTAL PROTEIN, SERUM 6.5 g/dL (6.4-8.2)
[2020-12-26] MEDS ORDERED: ONDA4TAB11 PO (09:52)
[2020-12-26] MEDS ORDERED: PANT40TA2 PO (09:52)
--- NOTE | 2020-12-26 10:17 | NUR ---
Patient discharged to home in stable condition. Written and verbal after care instructions given. Patient verbalizes understanding of instruction.IV removed. Catheter intact and site benign. Pressure and 4x4 applied to site. No bleeding noted. Pt ambulatory with a steady gait
[2020-12-26 10:18] VITALS: BP 142/82
== END 2020-12-26 10:18 | disposition home or self-care (01) ==
LOC: ER 08:53
DX: K29.70 Gastritis, unspecified, without bleeding (principal); I10 Essential (primary) hypertension; K21.9 Gastro-esophageal reflux disease without esophagitis; F17.200 Nicotine dependence, unspecified, uncomplicated; Z60.2 Problems related to living alone; Z79.899 Other long term (current) drug therapy
CPT/HCPCS: 36415; 80048; 80076; 83690; 85025; 96361; 96374; 99283; J2405; J7030

== ENCOUNTER 2021-01-14 08:53 | Inpatient (IN) | payer MEDICAID ==
[~2021-01-14] VITALS: Ht 180.3 cm; Wt 79.4 kg
[~2021-01-14 08:53] MED LIST changes: -CHOL500052 MT; +CHOL500052 PO; -LISI10TA29 MT; +LISI10TA29 PO; +ONDA4TAB11 PO; +PANT40TA2 PO
--- NOTE | 2021-01-14 09:00 | NUR ---
BIB SELF C/O VOMITING/DIARRHEA AND GEN WEAKNESS SINCE LAST NIGHT, + ALCOHOL INTAKE LAST NIGHT. THE PATIENT IS ALERT AND ORIENTED X4. DENIES PAIN. IN ROOM AIR AND DENIES SOB. RESPIRATION REGULAR AND UNLABORED. WILL CONTINUE TO MONITOR THE PATIENT.
[2021-01-14] MEDS ORDERED: TAMS-12 PO (09:01)
[2021-01-14] MEDS ORDERED: ESCI10TA PO (09:01)
--- NOTE | 2021-01-14 09:10 | NUR ---
AT BEDSIDE FOR EVAL.
[2021-01-14] MEDS ORDERED: Thiamine 100 MG/ML VIAL ONE (09:24)
[2021-01-14] MEDS ORDERED: PANTOPRAZOLE 40 MG VIAL ONE (09:24)
[2021-01-14] MEDS ORDERED: ONDANSETRON HCL/PF 4 MG/2 ML VIAL ONE (09:24)
[2021-01-14] MEDS ORDERED: Thiamine 100 MG in IV D5W 50 ML IV SCH (09:30)
[2021-01-14] MEDS ORDERED: ONDANSETRON HCL/PF 4 MG/2 ML VIAL IVP ONE (09:30)
[2021-01-14] MEDS ORDERED: PANTOPRAZOLE 40 MG VIAL IV ONE (09:30)
[2021-01-14] MEDS ORDERED: IV NS 0.9% 1,000 ML BAG IV ONE ×2 (09:30→11:00)
[2021-01-14 09:33] LABS: BASOPHILS % (AUTO) 0.3 % (0.0-2.0); CALCIUM, SERUM 7.9 mg/dL (8.5-10.1); CARBON DIOXIDE 17 mmol/L (21-32); CHLORIDE 96 mmol/L (98-107); GLUCOSE 128 mg/dL (74-106); HEMATOCRIT 39 % (39-51); HEMOGLOBIN 12.9 g/dL (13.5-17.5); LYMPHOCYTES # (AUTO) 0.5 /CMM (0.8-4.8); LYMPHOCYTES % (AUTO) 3.6 % (20.0-44.0); MEAN CORPUSCULAR HGB CONC 33 g/dl (31.0-36.0); MEAN CORPUSCULAR VOLUME 111 fL (80-96); MONOCYTES # (AUTO) 1.1 /CMM (0.1-1.30); MONOCYTES % (AUTO) 8.1 % (2.0-12.0); NEUTROPHILS # (AUTO) 11.8 /CMM (1.8-8.9); PLATELET COUNT (AUTO) 156 /CMM (150-450); POTASSIUM 3.1 mmol/L (3.5-5.1); RED BLOOD CELL COUNT(AUTO) 3.46 MIL/uL (4.5-6.0); SODIUM SERUM 140 mmol/L (136-145); UREA NITROGEN, BLOOD 10 mg/dL (7-18); WHITE BLOOD COUNT (AUTO) 13.4 K/uL (4.3-11.0)
[2021-01-14 09:42] LABS: ALANINE AMINOTRANSFERASE 107 U/L (12-78); ALBUMIN 3.4 g/dL (3.4-5.0); ALKALINE PHOSPHATASE 106 U/L (46-116); ASPARTATE AMINOTRANSFERASE 204 U/L (15-37); BILIRUBIN,DIRECT 0.7 mg/dL (0.0-0.2); BILIRUBIN,TOTAL 1.6 mg/dL (0.2-1.0); LIPASE 40 U/L (73-393); TOTAL PROTEIN, SERUM 6.3 g/dL (6.4-8.2)
[2021-01-14] MEDS ORDERED: CHLORDIAZEPOXIDE HCL 25 MG CAPSULE PO ONE (10:00)
[2021-01-14] MEDS ORDERED: IV PREMIX D5 1/2NS + KCL 1,000 ML IV ONE (10:00)
[2021-01-14] MEDS ORDERED: CHLORDIAZEPOXIDE HCL 25 MG CAPSULE ONE (10:42)
[2021-01-14] MEDS ORDERED: PIPERACILLIN /TAZOBACTAM 3.375 G in IV D5W 50 ML IV ONE (11:00)
[2021-01-14] MEDS ORDERED: ACETAMINOPHEN 325 MG TABLET PO PRN (12:00)
[2021-01-14] MEDS ORDERED: MAG HYDROX/AL HYDROX/SIMETH 30 ML UDC PO PRN (12:00)
[2021-01-14] MEDS ORDERED: MAGNESIUM HYDROXIDE 30 ML UDC PO PRN (12:00)
[2021-01-14] MEDS ORDERED: ONDANSETRON HCL/PF 4 MG/2 ML VIAL IVP PRN (12:00)
[2021-01-14] MEDS ORDERED: Z GUARD REMEDY 2 OZ OINT TP PRN (12:00)
[2021-01-14] MEDS: NICOTINE PATCH (21MG) 21 MG PATCH.TD24 TD SCH (12:25)
--- NOTE | 2021-01-14 12:30 | NUR ---
REPORT GIVEN TO NURSE DEEPA.
--- NOTE | 2021-01-14 12:31 | NUR ---
PATIENT IS TRANSFERED TO ROOM 308 IN STABLE CONDITION.
[2021-01-14] MEDS ORDERED: PIPERACILLIN /TAZOBACTAM 3.375 G in IV D5W 100 ML IV SCH (13:00)
[2021-01-14] MEDS ORDERED: PIPERACILLIN /TAZOBACTAM 3.375 G in IV D5W 50 ML IV SCH (13:00)
--- NOTE | 2021-01-14 13:17 | NUR ---
MS BRAZING MACHINE OPERATOR NOTES RECEIVED PATIENT VIA GURNEY FROM EMERGENCY DEPT. PATIENT IS A/O X 4. PATIENT IS BREATHING EVENLY AN UNLABORED ON ROOM AIR. NO SIGNS OF DISTRESS NOTED. PATIENT IS AMBULATORY AND ABLE TO MAKE NEEDS KNOWN. PATIENT HAS IV ACCESS 18 GAUGE PATENT AND INTACT FLUIDS INFUSING. PATIENT'S SKIN IS INTACT, CLEAN WARM AND DRY TO TOUCH. PATIENT WAS ORIENTED TO THE ROOM AND HOW TO USE THE CALL LIGHT. SAFETY MEASURES IN PLACE BED LOW LOCKED AND CALL LIGHT WITHIN REACH. BELONGINGS ARE ACCOUNTED FOR. WILL CONTINUE TO MONITOR.
[2021-01-14] MEDS: LORAZEPAM INJ 2 MG/ML VIAL IV PRN ×2 (13:22→18:52)
[2021-01-14 13:52] VITALS: BP 100/67
--- NOTE | 2021-01-14 15:44 | NUR ---
RN NOTES PATIENT WAS NOTED WITH HEART RATE OF 130 DURING ROUTINE VITAL SIGNS. NOTIFIED MD AND HE STATED NNO CONTINUE TO MONITOR ON MED SURGE.
[2021-01-14 16:00] VITALS: BP 108/87
[2021-01-14] MEDS: PIPERACILLIN /TAZOBACTAM 3.375 G in IV D5W 100 ML IV SCH (16:22)
--- NOTE | 2021-01-14 18:34 | NUR ---
MS RN CLOSING NOTES PATIENT IS A/O X 4. PATIENT IS BREATHING EVENLY AN UNLABORED ON ROOM AIR. NO SIGNS OF DISTRESS NOTED. PATIENT IS AMBULATORY AND ABLE TO MAKE NEEDS KNOWN. PATIENT HAS IV ACCESS RAC 18 GAUGE PATENT AND INTACT FLUIDS INFUSING. PATIENT'S SKIN IS INTACT, CLEAN WARM AND DRY TO TOUCH. PATIENT WAS ORIENTED TO THE ROOM AND HOW TO USE THE CALL LIGHT. SAFETY MEASURES IN PLACE BED LOW LOCKED AND CALL LIGHT WITHIN REACH
[2021-01-14 20:00] VITALS: BP 142/60
--- NOTE | 2021-01-14 20:00 | NUR ---
MS RN OPENING NOTES PATIENT IS AWAKE AND LYING IN BED AT THIS TIME. PATIENT IS A/O X 4. PATIENT IS IN NO RESPIRATORY DISTRESS. PATIENT IS AMBULATORY. PATIENT HAS AN INTRAVENOUS ACCESS ON RAC GAUGE #18. INTRAVENOUS ACCESS IS INTACT, PATENT, AND FLUSHES WELL.SAFETY MEASURES KEPT IN PLACE. CALL LIGHT IS WITHIN WITHIN REACH OF THE PATIENT. WILL CONTINUE TO MONITOR THE PATIENT.
--- NOTE | 2021-01-14 21:30 | NUR ---
MS RN NOTES This was an unwitnessed fall. The patient stated that he got up from lying on his bed and fell on the floor because he was trying to walk to the bathroom. After the fall, the patient's vital signs were stable. After the fall, the patient had no injuries from the fall. Before the patient fell, the Certified Nurse Road Commissioner asked the patient if he wanted a bedside commode instead of walking to the bathroom. The patient refused to have a bedside commode close by his bed.
[2021-01-15] MEDS: PIPERACILLIN /TAZOBACTAM 3.375 G in IV D5W 100 ML IV SCH ×3 (00:31→18:13)
[2021-01-15] MEDS: LORAZEPAM INJ 2 MG/ML VIAL IV PRN ×4 (00:44→21:14)
--- NOTE | 2021-01-15 03:10 | NUR ---
MS RN NOTES PATIENT PULLED OUT HIS INTRAVENOUS ACCESS ON RAC. A NEW INTRAVENOUS ACCESS WAS PLACED ON RIGHT WRIST GAUGE #22. WILL CONTINUE TO MONITOR THE PATIENT.
[2021-01-15 06:47] LABS: BASOPHILS % (AUTO) 0.4 % (0.0-2.0); HEMATOCRIT 33 % (39-51); HEMOGLOBIN 11.4 g/dL (13.5-17.5); LYMPHOCYTES # (AUTO) 1.1 /CMM (0.8-4.8); MEAN CORPUSCULAR HGB CONC 35 g/dl (31.0-36.0); MEAN CORPUSCULAR VOLUME 111 fL (80-96); MONOCYTES # (AUTO) 0.6 /CMM (0.1-1.30); MONOCYTES % (AUTO) 13.3 % (2.0-12.0); NEUTROPHILS # (AUTO) 2.5 /CMM (1.8-8.9); NEUTROPHILS % (AUTO) 59.3 % (43.0-81.0); PLATELET COUNT (AUTO) 96 /CMM (150-450); RED BLOOD CELL COUNT(AUTO) 2.96 MIL/uL (4.5-6.0); WHITE BLOOD COUNT (AUTO) 4.3 K/uL (4.3-11.0)
--- NOTE | 2021-01-15 07:00 | NUR ---
MS RN CLOSING NOTES PATIENT IS AWAKE AND LYING IN BED AT THIS TIME. PATIENT IS A/O X 4. PATIENT IS IN NO RESPIRATORY DISTRESS. PATIENT IS AMBULATORY. PATIENT HAS AN INTRAVENOUS ACCESS ON RIGHT WRIST GAUGE #22. INTRAVENOUS ACCESS IS INTACT, PATENT, AND FLUSHES WELL. SAFETY MEASURES KEPT IN PLACE. CALL LIGHT IS WITHIN WITHIN REACH OF THE PATIENT. WILL ENDORSE CARE TO NEXT SHIFT NURSE.
--- NOTE | 2021-01-15 07:35 | NUR ---
MS RN OPENING NOTES RECEIVED PATIENT IN BED, AWAKE, RESTING COMFORTABLY, A/O X4. PATIENT ON ROOM AIR; BREATHING EVEN AND UNLABORED. NO COMPLAINS OF PAIN AT THIS TIME. R WRIST G #22 IV ACCESS PRESENT AND INTACT. SAFETY PRECAUTIONS IN PLACE; BED IN LOW POSITION AND LOCKED, RAILS UPX2, CALL LIGHT WITHIN REACH. WILL CONTINUE TO MONITOR PATIENT.
[2021-01-15 08:00] VITALS: BP 129/82
[2021-01-15 08:07] LABS: BAND % (MANUAL) 8 % (0.0-5.0); EOSINOPHILS % (MANUAL) 2 % (0-4); LYMPHOCYTES % (MANUAL) 26 % (16-48); MONOCYTES % (MANUAL) 11 % (0-11.0); NEUTROPHILS % (MANUAL) 53 (42-76)
[2021-01-15] MEDS: NICOTINE PATCH (21MG) 21 MG PATCH.TD24 TD SCH (08:27)
[2021-01-15] MEDS: PANTOPRAZOLE 40 MG VIAL IV SCH (08:27)
[2021-01-15] MEDS: ENOXAPARIN SODIUM 40 MG/0.4 ML DISP.SYRIN SQ SCH (08:28)
[2021-01-15] MEDS: THIAMINE HCL 100 MG TABLET PO SCH (08:28)
[2021-01-15 09:16] LABS: CALCIUM, SERUM 7.7 mg/dL (8.5-10.1); CREATININE 0.8 mg/dL (0.6-1.3); MAGNESIUM 1.4 mg/dL (1.8-2.4); PHOSPHORUS 1.8 mg/dL (2.5-4.9)
[2021-01-15 09:19] LABS: THYROID STIMULATING HORMONE 2.687 uIU/mL (0.358-3.74)
[2021-01-15 09:22] LABS: POTASSIUM 2.7 mmol/L (3.5-5.1)
--- NOTE | 2021-01-15 09:28 | NUR ---
MS RN NOTES RECEIVED CALL FROM LAB REGARDING CRITICAL LAB FOR POTASSIUM OF 2.7. CONTACTED AND MADE AWARE.
[2021-01-15] MEDS ORDERED: Magnesium 1GM/D5W 100ML PREMIX PIGGYBACK IV ONE (09:30)
[2021-01-15] MEDS ORDERED: POTASSIUM CHLORIDE 20 MEQ TAB.PRT.SR PO ONE ×2 (09:30→13:00)
[2021-01-15] MEDS ORDERED: MGSO4/D5W 100 ML IV SCH (10:00)
[2021-01-15] MEDS ORDERED: K PHOS NEUTRAL 250 MG TABLET PO ONE (13:00)
[2021-01-15 16:00] VITALS: BP 129/81
--- NOTE | 2021-01-15 18:57 | NUR ---
MS RN CLOSING NOTES PATIENT REMAINS IN BED, AWAKE, RESTING COMFORTABLY, A/O X4. PATIENT ON ROOM AIR; BREATHING EVEN AND UNLABORED. NO COMPLAINS OF PAIN DURING SHIFT. R WRIST G #22 IV ACCESS PRESENT AND INTACT INFUSING ZOSYN AT THIS TIME. ALL NEEDS ATTENDED THROUGHOUT THE DAY. SAFETY PRECAUTIONS IN PLACE; BED IN LOW POSITION AND LOCKED, RAILS UPX2, CALL LIGHT WITHIN REACH. WILL ENDORSE TO LIFE ENRICHMENT ASSISTANT NURSE.
--- NOTE | 2021-01-15 19:19 | NUR ---
MS RN OPENING NOTES PATIENT IS AWAKE IN BED AT THIS TIME. PT IS ALERT AND ORIENTED X4. PATIENT IS STABLE ON ROOM AIR AND IN NO RESPIRATORY DISTRESS. PATIENT IS ABLE TO MAKE HIS NEEDS KNOWN. PATIENT HAS AN INTRAVENOUS ACCESSES ON HIS RIGHT WRIST GAUGE #22. INTRAVENOUS ACCESS IS INTACT AND PATENT. SAFETY MEASURES ARE KEPT IN PLACE. BED IS IN A LOCKED POSITION WITH SIDE RAILS UP X2. CALL LIGHT IS WITHIN REACH OF THE PATIENT. WILL CONTINUE TO MONITOR THE PATIENT.
[2021-01-15 20:00] VITALS: BP 121/81
[2021-01-16] MEDS: PIPERACILLIN /TAZOBACTAM 3.375 G in IV D5W 100 ML IV SCH ×3 (01:30→16:37)
[2021-01-16] MEDS: LORAZEPAM INJ 2 MG/ML VIAL IV PRN ×3 (06:31→19:37)
[2021-01-16 07:24] LABS: BASOPHILS % (AUTO) 0.4 % (0.0-2.0); EOSINOPHILS % (AUTO) 1.9 % (0.0-6.0); HEMATOCRIT 33 % (39-51); HEMOGLOBIN 11.6 g/dL (13.5-17.5); LYMPHOCYTES # (AUTO) 1.6 /CMM (0.8-4.8); LYMPHOCYTES % (AUTO) 32.4 % (20.0-44.0); MEAN CORPUSCULAR HGB CONC 35 g/dl (31.0-36.0); MEAN CORPUSCULAR VOLUME 112 fL (80-96); MONOCYTES # (AUTO) 0.5 /CMM (0.1-1.30); NEUTROPHILS # (AUTO) 2.8 /CMM (1.8-8.9); NEUTROPHILS % (AUTO) 56.3 % (43.0-81.0); PLATELET COUNT (AUTO) 91 /CMM (150-450); RED BLOOD CELL COUNT(AUTO) 2.97 MIL/uL (4.5-6.0)
--- NOTE | 2021-01-16 07:35 | NUR ---
MS RN OPENING NOTES RECEIVED RESIDENT AWAKE IN BED A/OX4, ABLE TO EXPRESS NEEDS, NO RESPIRATORY DISTRESS WAS OBSERVED,ON ROOM AIR, WITH IV LINE AT RT WRIST G#22 INFUSING WELL, FULL FLUIDS, NO COMPLAIN OF PAIN AND DISCOMFORT AT THIS TIME, RESIDENT IS AMBULATORY WITH SUPERVISION, BED IN LOW POSITION, CALL LIGHTS WITHIN REACH, INSTRUCT TO USE CALL LIGHTS WHEN NEED AN SSISTANCE, WILL CONTINUE TO MONITOR..
[2021-01-16 07:45] LABS: CALCIUM, SERUM 8.2 mg/dL (8.5-10.1); CREATININE 0.6 mg/dL (0.6-1.3); PHOSPHORUS 2.3 mg/dL (2.5-4.9)
[2021-01-16 07:51] LABS: POTASSIUM 2.5 mmol/L (3.5-5.1)
[2021-01-16 08:00] VITALS: BP 129/83
[2021-01-16] MEDS: IV NS 0.9% 1,000 ML IV PRN (08:21)
[2021-01-16] MEDS ORDERED: POTASSIUM CHLORIDE 20 MEQ TAB.PRT.SR PO ONE ×3 (09:00→16:00)
[2021-01-16] MEDS ORDERED: Magnesium 1GM/D5W 100ML PREMIX PIGGYBACK IV ONE (09:00)
[2021-01-16] MEDS ORDERED: Magnesium 1GM/D5W 100ML PREMIX 100 ML IV SCH (09:30)
[2021-01-16] MEDS ORDERED: NEUTRA PHOS 1 POWD.PACKET PO ONE (09:30)
[2021-01-16] MEDS: PANTOPRAZOLE 40 MG VIAL IV SCH (09:59)
[2021-01-16] MEDS: NICOTINE PATCH (21MG) 21 MG PATCH.TD24 TD SCH (10:00)
[2021-01-16] MEDS: THIAMINE HCL 100 MG TABLET PO SCH (10:00)
[2021-01-16] MEDS: ENOXAPARIN SODIUM 40 MG/0.4 ML DISP.SYRIN SQ SCH (10:01)
--- NOTE | 2021-01-16 12:48 | NUR ---
ATIVAN GIVEN 1 MG OR .05 ML IVP AT 1239 WITH PS-8 AT THE ABDOMNINAL AREA
[2021-01-16 16:00] VITALS: BP 135/89
[2021-01-16] MEDS: MORPHINE SULFATE INJ 2 MG/ML DISP.SYRIN IV PRN (16:18)
--- NOTE | 2021-01-16 16:32 | NUR ---
RN NOTES PT SEEN AND EVALUATED BY DR ARZOLA WITH ORDER TO DO OBTAIN CONSENT FOR COLONOSCOPY ON 01/18/21. NPO POST MIDNIGHT ON 01/17/21. START GOLYTELY TOMORROW AFTERNOON AND CLEAR LIQUIDS TOMORROW MORNING. WILL CARRY OUT ORDERS.
--- NOTE | 2021-01-16 17:24 | NUR ---
RN NOTES DR ARZOLA EXPLAINED COLONOSCOPY PROCEDURE TO PT TO BE DONE ON 01/18/21. PT SIGNED ALL CONSENTS AND FILED IN HIS CHART. WILL ENDORSED
--- NOTE | 2021-01-16 19:14 | NUR ---
MS RN CLOSING NOTES PATIENT SLEEP IN BED COMFORTABLY,AROUSABLE WITH VERBAL STIMULI, BED IN LOW POSITION, CALL LIGHTS WITHIN REACH, NO COMPLAIN OF PAIN AND DISCOMFORT, ON ROOM AIR. AMBULATE WITH SUPERVISION WITH ONGOING IV AT RT WRIST,INFUSING WELL, PATIENT IS MED COMPLIANT, KEPT CLEAN AND DRY, ALL NEEDS ARE MET, ENDORSE TO PRODUCTION GENERALIST NURSE FORCONTINUITY OF PLAN OF CARE.
--- NOTE | 2021-01-16 19:30 | NUR ---
MS RN OPENING NOTES PATIENT IS AWAKE IN BED AT THIS TIME. PT IS ALERT AND ORIENTED X3. PATIENT IS STABLE ON ROOM AIR AND IN NO RESPIRATORY DISTRESS. PATIENT IS ABLE TO MAKE HIS NEEDS KNOWN. PATIENT HAS AN INTRAVENOUS ACCESS ON HIS RIGHT WRIST GAUGE #22. INTRAVENOUS ACCESS IS INTACT AND PATENT. SAFETY MEASURES ARE KEPT IN PLACE. BED IS IN A LOCKED POSITION WITH SIDE RAILS UP X2. CALL LIGHT IS WITHIN REACH OF THE PATIENT. WILL CONTINUE TO MONITOR THE PATIENT.
[2021-01-16 20:00] VITALS: BP 131/83
--- NOTE | 2021-01-16 22:51 | NUR ---
RN MS NOTES CERTIFIED NURSE INSPECTOR WREATH CHECKED PATIENT'S HEART RATE AT 2000 AND IT WAS 99 BEATS PER MINUTE. PATIENT'S HEART RATE WAS RECHECKED AT 2235 AND THE HEART RATE WAS 99 BEATS PER MINUTE.
[2021-01-17] MEDS: PIPERACILLIN /TAZOBACTAM 3.375 G in IV D5W 100 ML IV SCH ×2 (00:11→09:10)
[2021-01-17] MEDS: IV NS 0.9% 1,000 ML IV PRN (01:36)
[2021-01-17] MEDS: LORAZEPAM INJ 2 MG/ML VIAL IV PRN ×4 (01:37→21:46)
[2021-01-17 07:06] LABS: BASOPHILS % (AUTO) 0.5 % (0.0-2.0); HEMATOCRIT 32 % (39-51); HEMOGLOBIN 11.1 g/dL (13.5-17.5); LYMPHOCYTES # (AUTO) 1.5 /CMM (0.8-4.8); LYMPHOCYTES % (AUTO) 40.4 % (20.0-44.0); MEAN CORPUSCULAR HGB CONC 35 g/dl (31.0-36.0); MEAN CORPUSCULAR VOLUME 111 fL (80-96); MONOCYTES # (AUTO) 0.4 /CMM (0.1-1.30); MONOCYTES % (AUTO) 9.7 % (2.0-12.0); NEUTROPHILS # (AUTO) 1.7 /CMM (1.8-8.9); NEUTROPHILS % (AUTO) 45.4 % (43.0-81.0); PLATELET COUNT (AUTO) 99 /CMM (150-450); RED BLOOD CELL COUNT(AUTO) 2.91 MIL/uL (4.5-6.0); WHITE BLOOD COUNT (AUTO) 3.8 K/uL (4.3-11.0)
--- NOTE | 2021-01-17 07:16 | NUR ---
MS RN CLOSING NOTES PATIENT LAST SEEN SLEEPING IN BED AT THIS TIME. PT IS ALERT AND ORIENTED X3. PATIENT IS STABLE ON ROOM AIR AND IN NO RESPIRATORY DISTRESS. PATIENT IS ABLE TO MAKE HIS NEEDS KNOWN. PATIENT HAS AN INTRAVENOUS ACCESS ON HIS RIGHT WRIST GAUGE #22. INTRAVENOUS ACCESS IS INTACT AND PATENT. SAFETY MEASURES ARE KEPT IN PLACE. BED IS IN A LOCKED POSITION WITH SIDE RAILS UP X2. CALL LIGHT IS WITHIN REACH OF THE PATIENT. ENDORSED CARE TO DAY SHIFT NURSE.
--- NOTE | 2021-01-17 07:22 | NUR ---
MS RN OPENING NOTES PATIENT SLEEP IN BED COMFORTABLY, RESPONSIVE TO VERBAL STIMULI. ALERT AND ORIENTED X3. AMBULATORY WITH ASSISTANCE, ON ROOM AIR, NO SOB AND OR NO RESPIRATORY DISTRESS WAS OBSERVE. NO COMPLAIN OF PAIN AND DISCOMFORT AT THIS TIME, PATIENT IS ABLE TO MAKE NEEDS KNOWN. TALISHA IV ACCESS ON RIGHT WRIST GAUGE #22, INTACT AND PATENT. BED IN LOW POSITION, CALL LIGHTS WITHIN REACH, SIDE RAILS UP X2. WILL CONTINUE TO MONITOR.
[2021-01-17 07:28] LABS: CREATININE 0.6 mg/dL (0.6-1.3); POTASSIUM 2.9 mmol/L (3.5-5.1)
[2021-01-17 08:00] VITALS: BP 111/72
[2021-01-17] MEDS ORDERED: POTASSIUM CHLORIDE 20 MEQ TAB.PRT.SR PO ONE ×3 (08:30→16:00)
[2021-01-17] MEDS: FAMOTIDINE/PF INJ 20 MG/2 ML VIAL IV SCH ×2 (09:10→21:46)
[2021-01-17] MEDS: THIAMINE HCL 100 MG TABLET PO SCH (09:10)
[2021-01-17] MEDS: NICOTINE PATCH (21MG) 21 MG PATCH.TD24 TD SCH (09:29)
[2021-01-17] MEDS: ENOXAPARIN SODIUM 40 MG/0.4 ML DISP.SYRIN SQ SCH (09:49)
--- NOTE | 2021-01-17 10:01 | NUR ---
RN NOTES PATIENT VERBALIZED ANXIETY AND REQUEST MEDICATION: LORAZEPAM 1 MG GIVEN IVP,AT 1001, WILL CONTINUE TO MONITOR.
[2021-01-17] MEDS ORDERED: K PHOS NEUTRAL 250 MG TABLET PO ONE (11:30)
--- NOTE | 2021-01-17 14:45 | NUR ---
Social Service Consult: technology services manager consult requested for alcohol use. Patient is a 60-year-old, male. SW met with the patient at his hospital bed in the med-surg unit. Patient is alert and oriented x4. Patient is calm and resting. Per patients chart, patient was brought in by self on 01/14/2021 for general weakness. Patient stated that he currently lives alone at [address] [facility], [place] [address]; [phone]. SW assessed if patient has a source of income and patient stated that he has no income. Patient stated that he has some social support from his friend Kris [phone]. SW assessed patients history of substance use and patient stated he has a history of alcohol and cigarette use. Patient stated that he drinks about five drinks daily and smokes around 2 packs of cigarettes per day. Patient denies any history of mental illness and any current thoughts of suicide or homicide. SW discussed discharge plans with the patient. Patient stated that he plans to return to his prior living arrangement at home. SW offered the patient substance abuse resources for drugs and alcohol. Patient accepted the resources and thanked this SW. PLAN: Patient stated he will be returning to his prior living arrangement. No further SS interventions at this time, however SW will remain available as needed. Substance use resources provided included: [facility]stance Abuse Self-Helpline ([facility]) ; [facility] [address] [place] [address] ; [place] [id number] [facility] [address] ; [facility] [address] [address] ; [facility] [address] [facility] [address] ; [facility] [address] [facility] [phone] ; [employer] [place]; [facility] [place]; [facility]; Alcoholics Anonymous [phone]
[2021-01-17] MEDS ORDERED: PEG 3350/NA SULF,BICARB,CL/KCL 4,000 ML BOTTLE PO ONE (16:00)
--- NOTE | 2021-01-17 16:19 | NUR ---
RN NOTES RECEIVED CALL FROM [facility] MICROBIOLOGY DEPT THAT PT'S STOOL CULTURE SHOWED PRESENCE OF CAMPYLOBACTER ANTIGEN. TRISTIN WADSWORTH MADE AWARE WITH ORDERS TO DC ZOSYN AND START LEVAQUIN 500MG IV Q24HRS. WILL CARRYOUT ORDERS.
--- NOTE | 2021-01-17 16:45 | NUR ---
RN NOTES: PATIENT VERBALIZED ANXIETY, ATIVAN 1MG GIVEN IVP, REMAINING DISCARD WITNESS MADE AWARE BY PRECEPTOR JOHN, WILL CONTINUE TO MONITOR.
[2021-01-17] MEDS ORDERED: LEVOFLOXACIN 500 MG /D5W 100ML 500 MG in PREMIX 1 EA IV SCH (17:00)
--- NOTE | 2021-01-17 18:52 | NUR ---
MS RN CLOSING NOTES PATIENT AWAKE IN BED, ALERT AND ORIENTED X3. PATIENT IS STABLE ON ROOM AIR, NO SOB RESPIRATORY DISTRESS. PATIENT IS ABLE TO MAKE HIS NEEDS KNOWN. PATIENT HAS AN INTRAVENOUS ACCESS ON HIS RIGHT WRIST GAUGE #22, INTACT AND PATENT. ON CLEAR LIQUID NPO POST MIDNIGHT, FOR COLONOSCOPY TOMMORROW, WITH ONGOING IV ANTIBIOTICS AT 66ML/HR, AMBULATORY WITH SUPERVISION, SA BED IS IN A LOW POSITION, CALL LIGHTS WITHIN REACH, SIDE RAILS UP, WILL ENDORSED CARE TO DAY SHIFT NURSE.
--- NOTE | 2021-01-17 19:30 | NUR ---
MS RN NOTES PATIENT IN BED. A/OX4. NO S/S OF DISTRESS. NO C/O PAIN AT THE MOMENT. ISOLATION IN PLACE. SAFETY IN PLACE: BED IN LOWEST, LOCKED POSITION; CALL LIGHT WITHIN REACH. WILL CONTINUE TO MONITOR.
[2021-01-17 20:00] VITALS: BP 132/85
[2021-01-17] MEDS: POTASSIUM CL. PREMIX PERIPHER. 50 ML IV SCH ×4 (21:00→23:00)
--- NOTE | 2021-01-17 21:45 | NUR ---
MS RN NOTES PATIENT ASKED ATIVAN. GIVEN . WILL ASSESS.
--- NOTE | 2021-01-17 23:00 | NUR ---
MS RN NOTES LEVOFLOXACIN WAS STILL RUNNING HENCE THE DELAY OF IV POTASSIUM. PATIENT COMPLAINED OF INTENSE PAIN, BURNING EVEN WITH NS RUNNING WITH POTASSIUM AND LOWERED THE RATE. FINISHED ONE BAG AND PATIENT REFUSED THE OTHER BAGS. MADE DR. PIRES KNOWN. OF NOW POTASSIUM LEVEL IS AT 2.9. MORNING SHIFT JOHN VERGARA SAID THEY GAVE 120 MG OF KDUR ALREADY AND I WAS ABLE TO HANG/FINISHED 1 BAG. PATIENT ASKING MORPHINE FOR PAIN 07/03. WILL ADMINISTER.
[2021-01-17] MEDS: MORPHINE SULFATE INJ 2 MG/ML DISP.SYRIN IV PRN (23:11)
--- NOTE | 2021-01-17 23:15 | NUR ---
MS RN NOTES MORPHINE 4MG GIVEN. WILL REASSESS.
--- NOTE | 2021-01-18 05:39 | NUR ---
MS RN NOTES PATIENT A/OX4. TAKEN DOWN TO SURGERY VIA BED. PT/PTT STILL PENDING, I HAVE LET THE OR NURSE KNOW AND SHE SAID IT IS OKAY, ANESTHESIOLOGIST WILL DECIDE. MADE THEM KNOWN ABOUT THE POTASSIUM WELL. PATIENT V/S FOLLOW: 164/99; HR 90, SPO2 97%, TEMP. 97.8. PATIENT DOES REPORT OF BEING ANXIOUS. OR NURSE KNOW ABOUT THE V/S AND SAID THEY'LL RECHECK IT DOWN THERE.
[2021-01-18 05:59] LABS: BASOPHILS % (AUTO) 0.3 % (0.0-2.0); EOSINOPHILS % (AUTO) 3.3 % (0.0-6.0); HEMATOCRIT 36 % (39-51); HEMOGLOBIN 12.2 g/dL (13.5-17.5); LYMPHOCYTES # (AUTO) 1.7 /CMM (0.8-4.8); LYMPHOCYTES % (AUTO) 45.2 % (20.0-44.0); MEAN CORPUSCULAR HGB CONC 34 g/dl (31.0-36.0); MEAN CORPUSCULAR VOLUME 112 fL (80-96); MONOCYTES # (AUTO) 0.6 /CMM (0.1-1.30); MONOCYTES % (AUTO) 14.9 % (2.0-12.0); NEUTROPHILS # (AUTO) 1.4 /CMM (1.8-8.9); NEUTROPHILS % (AUTO) 36.3 % (43.0-81.0); PLATELET COUNT (AUTO) 128 /CMM (150-450); RED BLOOD CELL COUNT(AUTO) 3.21 MIL/uL (4.5-6.0); WHITE BLOOD COUNT (AUTO) 3.7 K/uL (4.3-11.0)
[2021-01-18 06:13] LABS: CALCIUM, SERUM 8.4 mg/dL (8.5-10.1); CREATININE 0.6 mg/dL (0.6-1.3); MAGNESIUM 1.6 mg/dL (1.8-2.4); POTASSIUM 3.1 mmol/L (3.5-5.1)
[2021-01-18] MEDS ORDERED: METRONIDAZOLE 500MG/ NS 100ML 500 MG in PREMIX 1 EA IV SCH ×2 (06:30→14:00)
--- NOTE | 2021-01-18 06:59 | NUR ---
MS RN CLOSING NOTES PATIENT BROUGHT IN BY OR. A/OX4. NO S/S OF DISTRESS. NO C/O PAIN BRITTA. V/S POST SURGERY FOLLOWS: BP- 135/87, P- 89, O2 SAT- 97% IN ROOM AIR, T- 97.8. PATIENT ABLE TO MAKE NEEDS KNOWN. ALL NEEDS ATTENDED. SAFETY KEPT IN PLACE THE WHOLE SHIFT: BED IN LOWEST, LOCKED POSITION; CALL LIGHT WITHIN REACH. WILL ENDORSE CARE TO MORNING SHIFT NURSE.
[2021-01-18] MEDS: LORAZEPAM INJ 2 MG/ML VIAL IV PRN (07:37)
[2021-01-18 08:00] VITALS: BP 130/91
--- NOTE | 2021-01-18 08:00 | NUR ---
received pt. in am alert and oriented x4.had just returned from surgery.skin warm and dry.vs stable.hob elevated.denies pain.
--- NOTE | 2021-01-18 09:30 | NUR ---
taking liquids,no nausea.
--- NOTE | 2021-01-18 09:40 | NUR ---
maxwell man[employer] development manager in and alerted to abnormal labs.
[2021-01-18] MEDS: NICOTINE PATCH (21MG) 21 MG PATCH.TD24 TD SCH (10:28)
[2021-01-18] MEDS: THIAMINE HCL 100 MG TABLET PO SCH (10:28)
[2021-01-18] MEDS: ENOXAPARIN SODIUM 40 MG/0.4 ML DISP.SYRIN SQ SCH (10:28)
[2021-01-18] MEDS: FAMOTIDINE/PF INJ 20 MG/2 ML VIAL IV SCH (10:28)
[2021-01-18] MEDS ORDERED: K PHOS NEUTRAL 250 MG TABLET PO ONE (11:00)
[2021-01-18] MEDS: Magnesium 1GM/D5W 100ML PREMIX 100 ML IV SCH ×2 (11:23→12:48)
[2021-01-18] MEDS: POTASSIUM CHLORIDE 20 MEQ TAB.PRT.SR PO SCH ×2 (11:23→12:48)
[2021-01-18] MEDS: MORPHINE SULFATE INJ 2 MG/ML DISP.SYRIN IV PRN (11:38)
[2021-01-18] MEDS ORDERED: LEVO500T90 PO (11:39)
[2021-01-18] MEDS ORDERED: FAMO-131 PO (11:39)
[2021-01-18] MEDS ORDERED: METR500T PO (11:39)
--- NOTE | 2021-01-18 14:36 | NUR ---
in dc order given,hep lock out had potassium and mg. replacements.all papers signed,including belonging sheet. given rxs.taken via w/c to lobby accompanied by torts law professor.friend waiting to transport home.
== END 2021-01-18 14:30 | disposition home or self-care (01) | DRG 254 ==
LOC: ER 08:55 → TELE 12:14 → MED 13:27
PROVIDERS: ADMIT Nurse Practitioner Acute Care; ATTEND Nurse Practitioner Acute Care
PROC: 0DBK8ZZ Excision of Ascending Colon, Via Natural or Artificial Opening Endoscopic (ICD-10-PCS; principal; 2021-01-17)
PROC: 0DBH8ZZ Excision of Cecum, Via Natural or Artificial Opening Endoscopic (ICD-10-PCS; 2021-01-17)
PROC: 0DBE8ZX Excision of Large Intestine, Via Natural or Artificial Opening Endoscopic, Diagnostic (ICD-10-PCS; 2021-01-17)
DX: K58.0 Irritable bowel syndrome with diarrhea (principal); E87.2 Acidosis; K70.9 Alcoholic liver disease, unspecified; E83.39 Other disorders of phosphorus metabolism; E83.42 Hypomagnesemia; A04.72 Enterocolitis due to Clostridium difficile, not specified as recurrent; N40.0 Benign prostatic hyperplasia without lower urinary tract symptoms; K76.0 Fatty (change of) liver, not elsewhere classified; K29.70 Gastritis, unspecified, without bleeding; K57.32 Diverticulitis of large intestine without perforation or abscess without bleeding; K63.5 Polyp of colon; K64.8 Other hemorrhoids; I10 Essential (primary) hypertension; F41.9 Anxiety disorder, unspecified; K21.9 Gastro-esophageal reflux disease without esophagitis; Z79.899 Other long term (current) drug therapy; E87.6 Hypokalemia; F10.10 Alcohol abuse, uncomplicated; Y90.5 Blood alcohol level of 100-119 mg/100 ml; F17.200 Nicotine dependence, unspecified, uncomplicated; Z87.11 Personal history of peptic ulcer disease; K57.92 Diverticulitis of intestine, part unspecified, without perforation or abscess without bleeding
CPT/HCPCS: 36415; 71045-TC; 80048-TC; 80061-TC; 80076-TC; 83690-TC; 83735-TC; 84100-TC; 84443-TC; 84484-TC; 85025-TC; 85610-TC; 85730-TC; 87045-TC; 87081-TC; 87177; 87209; 88305-TC; A4216; C9113; C9803; G0378; G0480; J1650; J1956; J2060; J2270; J2405; J2543; J2704; J3411; J3475; J3480; J3490; J7030; J7060

== ENCOUNTER 2021-03-12 01:55 | Emergency (ER) | payer MEDICAID ==
[~2021-03-12] VITALS: Ht 177.8 cm; Wt 74.8 kg
[~2021-03-12 01:55] MED LIST changes: +ESCI10TA PO; +FAMO-131 PO; +LEVO500T90 PO; +METR500T PO; -NICO-676 TD; -OMEP40CA13 MT; -ONDA4TAB11 PO; -PANT40TA2 PO; +TAMS-12 PO
--- NOTE | 2021-03-12 01:58 | NUR ---
VICTORIANO C/O HAS NOT BEEN ABLE TO EAT X2 WEEKS. +VOMITING/DIARRHEA PLACED IN BED 4 ON MONITOR AND PULSE OX.
--- NOTE | 2021-03-12 02:16 | NUR ---
UNABLE TO PROVIDE URINE AT THIS TIME.
[2021-03-12] MEDS ORDERED: MORPHINE SULFATE INJ 4 MG/ML DISP.SYRIN ONE (02:18)
[2021-03-12] MEDS ORDERED: ONDANSETRON HCL/PF 4 MG/2 ML VIAL ONE (02:18)
[2021-03-12] MEDS ORDERED: IV NS 0.9% 1,000 ML BAG IV ONE ×2 (02:30→04:00)
[2021-03-12] MEDS ORDERED: ONDANSETRON HCL/PF 4 MG/2 ML VIAL IVP ONE (02:30)
[2021-03-12] MEDS ORDERED: MORPHINE SULFATE INJ 2 MG/ML DISP.SYRIN IV ONE (02:30)
[2021-03-12 02:38] LABS: BASOPHILS % (AUTO) 0.3 % (0.0-2.0); EOSINOPHILS % (AUTO) 0.1 % (0.0-6.0); HEMATOCRIT 39 % (39-51); HEMOGLOBIN 13.2 g/dL (13.5-17.5); LYMPHOCYTES # (AUTO) 1.7 /CMM (0.8-4.8); LYMPHOCYTES % (AUTO) 16.3 % (20.0-44.0); MEAN CORPUSCULAR HGB CONC 34 g/dl (31.0-36.0); MEAN CORPUSCULAR VOLUME 111 fL (80-96); MONOCYTES # (AUTO) 0.7 /CMM (0.1-1.30); NEUTROPHILS # (AUTO) 7.8 /CMM (1.8-8.9); NEUTROPHILS % (AUTO) 76.3 % (43.0-81.0); PLATELET COUNT (AUTO) 192 /CMM (150-450); RED BLOOD CELL COUNT(AUTO) 3.48 MIL/uL (4.5-6.0); WHITE BLOOD COUNT (AUTO) 10.2 K/uL (4.3-11.0)
[2021-03-12 02:39] LABS: ALBUMIN 3.4 g/dL (3.4-5.0); BILIRUBIN,DIRECT 0.3 mg/dL (0.0-0.2); BILIRUBIN,TOTAL 0.6 mg/dL (0.2-1.0); CALCIUM, SERUM 8.1 mg/dL (8.5-10.1); POTASSIUM 3.1 mmol/L (3.5-5.1); TOTAL PROTEIN, SERUM 6.2 g/dL (6.4-8.2)
--- NOTE | 2021-03-12 03:00 | NUR ---
BROUGHT BACK FROM CT
[2021-03-12] MEDS ORDERED: POTASSIUM CHLORIDE 20 MEQ TAB.PRT.SR PO ONE ×2 (04:00→04:03)
[2021-03-12] MEDS ORDERED: NICOTINE PATCH (14MG) 14 MG PATCH.TD24 TD SCH (04:00)
[2021-03-12] MEDS ORDERED: NICOTINE PATCH (14MG) 14 MG PATCH.TD24 TD ONE (04:09)
[2021-03-12 04:24] LABS: BILIRUBIN,URINE Negative (NEGATIVE); COLOR,URINE YELLOW (YELLOW); LEUKOCYTE ESTERASE ,URINE Negative (NEGATIVE); NITRITE, URINE Negative (NEGATIVE); PROTEIN,URINE Negative (NEGATIVE); UGLUCOSE Negative (NEGATIVE); UROBILINOGEN,URINE 0.2 EU/dL (0.2)
[2021-03-12 04:45] VITALS: BP 132/68
--- NOTE | 2021-03-12 04:55 | NUR ---
Patient discharged to home in stable condition. Written and verbal after care instructions given. Patient verbalizes understanding of instruction.
== END 2021-03-12 04:55 | disposition home or self-care (01) ==
LOC: ER 01:58
DX: K51.90 Ulcerative colitis, unspecified, without complications (principal); E87.6 Hypokalemia; F17.200 Nicotine dependence, unspecified, uncomplicated; I10 Essential (primary) hypertension; Z60.2 Problems related to living alone; Z79.899 Other long term (current) drug therapy
CPT/HCPCS: 36415; 74176; 80048; 80076; 81003; 83690; 85025; 85730; 96361; 96374; 96375; 99284; 99406; J2270; J2405; J7030 ×2

== ENCOUNTER 2021-09-29 14:11 | Emergency (ER) | payer MEDICAID ==
[~2021-09-29] VITALS: Ht 180.3 cm; Wt 70.8 kg
--- NOTE | 2021-09-29 14:34 | NUR ---
PT CAME TO ER C/O N/V, BLOODY DIARRHEA X 3 DAYS. PT REPORTS ABOUT 30 BM A DAY. UNABLE TO EAT FR 11 DAYS. HX ULCERATIVE COLITIS. AAOX4, BREATHING EVEN AND UNLABORED. SKIN WARM AND DRY. PULSES 2+ BILATERALLY. ASSISTED TO ER BED 9, ON MONITOR. AWAITING MD FOR EVAL.
--- NOTE | 2021-09-29 15:03 | NUR ---
BLOOD SAMPLE OBTAINED AND SENT TO LAB
--- NOTE | 2021-09-29 15:10 | NUR ---
OFFERED PT URINE CUP. PT NOT ABLE TO URINATE AT THIS TIME; WILL F/U WITH URINE SAMPLE AGAIN LATER.
--- NOTE | 2021-09-29 15:14 | NUR ---
ТАТЬЯНА PATIÑO AT PT'S BEDSIDE
[2021-09-29 15:21] LABS: BASOPHILS % (AUTO) 0.4 % (0.0-2.0); EOSINOPHILS % (AUTO) 0.1 % (0.0-6.0); HEMATOCRIT 35 % (39-51); HEMOGLOBIN 11.9 g/dL (13.5-17.5); LYMPHOCYTES # (AUTO) 1.1 K/uL (0.8-4.8); LYMPHOCYTES % (AUTO) 20.1 % (20.0-44.0); MEAN CORPUSCULAR HGB CONC 34 g/dl (31.0-36.0); MEAN CORPUSCULAR VOLUME 107 fL (80-96); MONOCYTES # (AUTO) 0.7 K/uL (0.1-1.30); MONOCYTES % (AUTO) 11.7 % (2.0-12.0); NEUTROPHILS # (AUTO) 3.8 K/uL (1.8-8.9); NEUTROPHILS % (AUTO) 67.7 % (43.0-81.0); PLATELET COUNT (AUTO) 117 K/uL (150-450); RED BLOOD CELL COUNT(AUTO) 3.31 MIL/uL (4.5-6.0); WHITE BLOOD COUNT (AUTO) 5.6 K/uL (4.3-11.0)
[2021-09-29 15:58] LABS: CALCIUM, SERUM 8.6 mg/dL (8.5-10.1); CARBON DIOXIDE 22 mmol/L (21-32); CHLORIDE 94 mmol/L (98-107); CREATININE 0.8 mg/dL (0.6-1.3); GLUCOSE 120 mg/dL (74-106); POTASSIUM 3.2 mmol/L (3.5-5.1); SODIUM SERUM 134 mmol/L (136-145); UREA NITROGEN, BLOOD 14 mg/dL (7-18)
--- NOTE | 2021-09-29 16:01 | NUR ---
urine sample obtained and sent to lab
[2021-09-29 16:02] LABS: BAND % (MANUAL) 3 % (0.0-5.0); LYMPHOCYTES % (MANUAL) 23 % (16-48); MONOCYTES % (MANUAL) 11 % (0-11.0); NEUTROPHILS % (MANUAL) 63 (42-76)
[2021-09-29 16:04] LABS: ALANINE AMINOTRANSFERASE 45 U/L (12-78); ALBUMIN 3.2 g/dL (3.4-5.0); ALKALINE PHOSPHATASE 90 U/L (46-116); ASPARTATE AMINOTRANSFERASE 82 U/L (15-37); BILIRUBIN,DIRECT 0.3 mg/dL (0.0-0.2); BILIRUBIN,TOTAL 1.1 mg/dL (0.2-1.0); LIPASE 161 U/L (73-393); TOTAL PROTEIN, SERUM 6.5 g/dL (6.4-8.2)
[2021-09-29] MEDS ORDERED: CT SWABBABLE VALVE TRANS SET 1 EA INFUS.SET MC ONE (16:08)
[2021-09-29] MEDS ORDERED: IV NS 0.9% 250 ML IV ONE (16:08)
[2021-09-29] MEDS ORDERED: IOHEXOL-300 100 ML VIAL IV ONE (16:08)
--- NOTE | 2021-09-29 16:13 | NUR ---
Nubia akhtar in [facility] - 09/29/21 at 1614 by WOLF PT'S DIAPER CHANGED, ADDITIONAL BLANKETS GIVEN, VS STABLE
--- NOTE | 2021-09-29 16:40 | NUR ---
PT BACK FROM CT, VS STABLE
[2021-09-29 16:42] LABS: BILIRUBIN,URINE MODERATE (NEGATIVE); COLOR,URINE YELLOW (YELLOW); LEUKOCYTE ESTERASE ,URINE NEGATIVE (NEGATIVE); NITRITE, URINE NEGATIVE (NEGATIVE); PH,URINE 6.5 (5.0-8.0); PROTEIN,URINE NEGATIVE (NEGATIVE); UGLUCOSE NEGATIVE (NEGATIVE); UROBILINOGEN,URINE 0.2 EU/dL (0.2)
[2021-09-29 16:59] LABS: MAGNESIUM 1.8 mg/dL (1.8-2.4)
[2021-09-29 17:00] LABS: ALCOHOL, BLOOD < 3 mg/dL (0-0)
[2021-09-29] MEDS ORDERED: ONDANSETRON HCL/PF - ER 4 MG/2 ML VIAL IV ONE (17:00)
[2021-09-29] MEDS ORDERED: CIPROFLOXACIN IV RTU 400 MG in PREMIX 1 EA IV SCH (17:00)
[2021-09-29] MEDS ORDERED: IV NS 0.9% 1,000 ML IV ONE (17:00)
[2021-09-29] MEDS ORDERED: POTASSIUM CHLORIDE 20 MEQ TAB.PRT.SR PO ONE ×2 (17:00→18:36)
[2021-09-29] MEDS ORDERED: MORPHINE SULFATE INJ 2 MG/ML DISP.SYRIN IV ONE (17:00)
[2021-09-29] MEDS ORDERED: FLAGYL/NS RTU 500 MG/100 ML PIGGYBACK IV ONE (17:00)
--- NOTE | 2021-09-29 17:08 | NUR ---
CALLED DR. ANDUJAR HE WOULD LIKE [facility] TO ADMIT.
[2021-09-29] MEDS ORDERED: MORPHINE SULFATE INJ 2 MG/ML DISP.SYRIN ONE (18:35)
[2021-09-29] MEDS ORDERED: ONDANSETRON HCL/PF 4 MG/2 ML VIAL ONE (18:35)
--- NOTE | 2021-09-29 18:59 | NUR ---
WAITING FOR CIPRO TO INFUSE PRIOR TO STARTING FLAGYL
--- NOTE | 2021-09-29 19:13 | NUR ---
COVID SWAB DONE AND SENT TO LAB
--- NOTE | 2021-09-29 20:51 | NUR ---
DR GOYAL [facility] HOSPITALIST PAGED.
--- NOTE | 2021-09-29 22:35 | NUR ---
PT ACCEPTED TO [facility] ER BY DR CHAHAL. # FOR REPORT [phone]. AMBULANCE AUTH: [id number] Addendum: 09/29/21 at 2303 by CBATACLAN PT ACCEPTED TO [facility], 2E 226-1, BY DR CHAHAL. # FOR REPORT [phone]. AMBULANCE AUTH: [id number]
--- NOTE | 2021-09-29 22:39 | NUR ---
[facility] CALLED FOR BLS TRANSPORT. ETA 90-120 MINUTES.
--- NOTE | 2021-09-29 22:50 | NUR ---
REPORT GIVEN TO ALEIDA VERGARA FOR CONTINUATION OF CARE.
--- NOTE | 2021-09-29 23:10 | NUR ---
*UPDATED TRANSFER INFORMATION* PT ACCEPTED TO [facility], 2E 226-1, BY DR CHAHAL. # FOR REPORT [phone]. AMBULANCE AUTH: [id number]
--- NOTE | 2021-09-29 23:39 | NUR ---
REPORT GIVEN TO JAI ALBERTO. PATIENT GOING TO ROOM 2261 BED A
--- NOTE | 2021-09-30 01:03 | NUR ---
[facility] AT BEDSIDE FOR TRANSPORT TO [facility].
[2021-09-30 04:25] VITALS: BP 144/77
== END 2021-09-30 04:25 | disposition short-term general hospital (02) ==
LOC: ER 14:58
DX: K52.9 Noninfective gastroenteritis and colitis, unspecified (principal); E87.6 Hypokalemia; E86.0 Dehydration; Z20.822 Contact with and (suspected) exposure to COVID-19; D64.9 Anemia, unspecified; D69.6 Thrombocytopenia, unspecified; F17.200 Nicotine dependence, unspecified, uncomplicated; F41.9 Anxiety disorder, unspecified; N40.0 Benign prostatic hyperplasia without lower urinary tract symptoms; Z79.899 Other long term (current) drug therapy; K70.0 Alcoholic fatty liver
CPT/HCPCS: 36415; 74177; 80048; 80076; 80320; 81003; 83690; 83735; 84484; 85007; 85025; 87081; 87426; 93005; 96365; 96375; 99285; A4216; C9803; J0744; J2270; J2405 ×2; J7030; J7050; Q9967; G0480

== ENCOUNTER 2022-07-01 09:38 | Emergency (ER) | payer MEDICAID ==
[~2022-07-01] VITALS: Ht 177.8 cm; Wt 72.6 kg
--- NOTE | 2022-07-01 10:06 | NUR ---
BIBS C/O ON AND OFF ABDOMINAL PAIN AND VOMITING AND BLACK STOOL X2DAYS. PAIN IS 10/10 ON PAIN SCALE. PT STAED HE HAS CHRONIC ABDOMINAL PAIN FOR 2 YEARS AND BEEN HOSPITALIZED 6 TIMES WITHIN THAT TIME PERIOD AND HAS NOT BEEN RESOLVED. PAIN IS DIFFUSE, DENIES IT RADIATING TO HIS BACK. DR SALVADOR AT BEDSIDE, AWAITING MD ORDERS.
[2022-07-01 10:07] VITALS: BP 131/76
--- NOTE | 2022-07-01 10:21 | NUR ---
URINE COLLECTED AND SENT
--- NOTE | 2022-07-01 10:23 | NUR ---
IV ETSBALHISED L AC 20G. LABS DRAWN AND COLLECTED AT BEDSIDE
[2022-07-01 10:33] LABS: BASOPHILS # (AUTO) 0.1 K/uL (0.0-0.2); BASOPHILS % (AUTO) 0.7 % (0.0-2.0); EOSINOPHILS % (AUTO) 0.1 % (0.0-6.0); HEMATOCRIT 41 % (39-51); HEMOGLOBIN 13.9 g/dL (13.5-17.5); LYMPHOCYTES # (AUTO) 1.8 K/uL (0.8-4.8); LYMPHOCYTES % (AUTO) 18.9 % (20.0-44.0); MEAN CORPUSCULAR HGB CONC 34 g/dl (31.0-36.0); MEAN CORPUSCULAR VOLUME 105 fL (80-96); MONOCYTES % (AUTO) 10.6 % (2.0-12.0); NEUTROPHILS # (AUTO) 6.6 K/uL (1.8-8.9); NEUTROPHILS % (AUTO) 69.7 % (43.0-81.0); PLATELET COUNT (AUTO) 167 K/uL (150-450); RED BLOOD CELL COUNT(AUTO) 3.93 MIL/uL (4.5-6.0); WHITE BLOOD COUNT (AUTO) 9.5 K/uL (4.3-11.0)
[2022-07-01] MEDS ORDERED: LORAZEPAM INJ 2 MG/ML VIAL ONE ×2 (10:36→11:16)
[2022-07-01] MEDS: IV NS 0.9% 1,000 ML IV ONE (10:44)
[2022-07-01] MEDS: ONDANSETRON HCL/PF - ER 4 MG/2 ML VIAL IV ONE (10:44)
[2022-07-01] MEDS: LORAZEPAM INJ 2 MG/ML VIAL IV ONE (10:44)
--- NOTE | 2022-07-01 10:49 | NUR ---
PT TAKEN TO CT VIA NORM
[2022-07-01 10:50] LABS: ALBUMIN 4.2 g/dL (3.4-5.0); BILIRUBIN,DIRECT 0.4 mg/dL (0.0-0.2); BILIRUBIN,TOTAL 1.7 mg/dL (0.2-1.0); CALCIUM, SERUM 9.1 mg/dL (8.5-10.1); CREATININE 0.8 mg/dL (0.6-1.3); POTASSIUM 4.2 mmol/L (3.5-5.1); TOTAL PROTEIN, SERUM 6.9 g/dL (6.4-8.2)
[2022-07-01 10:52] LABS: BILIRUBIN,URINE NEGATIVE (NEGATIVE); COLOR,URINE YELLOW (YELLOW); LEUKOCYTE ESTERASE ,URINE NEGATIVE (NEGATIVE); NITRITE, URINE NEGATIVE (NEGATIVE); PROTEIN,URINE NEGATIVE (NEGATIVE); UGLUCOSE NEGATIVE (NEGATIVE); UROBILINOGEN,URINE 0.2 EU/dL (0.2)
[2022-07-01] MEDS ORDERED: ONDANSETRON HCL/PF 4 MG/2 ML VIAL ONE ×2 (11:02→11:15)
[2022-07-01 11:10] LABS: BACTERIA,URINE Few /HPF (None Seen); RBC,URINE 0-2 /HPF (0-2)
[2022-07-01] MEDS ORDERED: NICOTINE PATCH (21MG) 21 MG PATCH.TD24 TD SCH (12:00)
--- NOTE | 2022-07-01 12:16 | NUR ---
CALLED DR. CHAHAL [phone] [facility] 1 WILL BE PAGED.
--- NOTE | 2022-07-01 12:22 | NUR ---
DR. CHAHAL SPEAKING WITH DR. CARRILLO
--- NOTE | 2022-07-01 12:28 | NUR ---
AUTH FOR TRANSPORT [id number]
--- NOTE | 2022-07-01 12:29 | NUR ---
AWAITING BED ASSIGNMENTAT [facility].
[2022-07-01] MEDS ORDERED: MAG HYDROX/AL HYDROX/SIMETH 30 ML UDC ONE (12:31)
[2022-07-01] MEDS ORDERED: FOLIC ACID 1 MG TABLET ONE (12:31)
[2022-07-01 12:37] LABS: LYMPHOCYTES % (MANUAL) 12 % (16-48); MONOCYTES % (MANUAL) 6 % (0-11.0); NEUTROPHILS % (MANUAL) 82 (42-76)
[2022-07-01] MEDS ORDERED: FAMOTIDINE/PF INJ 20 MG/2 ML VIAL IV ONE (12:37)
[2022-07-01] MEDS: MAG HYDROX/AL HYDROX/SIMETH 30 ML UDC PO ONE (12:45)
[2022-07-01] MEDS: FAMOTIDINE/PF INJ 20 MG/2 ML VIAL IV ONE (12:45)
[2022-07-01] MEDS: NICOTINE PATCH (21MG) 21 MG PATCH.TD24 TD ONE (12:45)
[2022-07-01] MEDS: FOLIC ACID 1 MG TABLET PO ONE (12:45)
[2022-07-01] MEDS: CYANOCOBALAMIN 100 MCG TABLET PO SCH (12:45)
--- NOTE | 2022-07-01 12:47 | NUR ---
COVID TEST COLLECTED AND SENT
--- NOTE | 2022-07-01 13:06 | NUR ---
CHRIS EDDY [phone] OF CALLED FOR SOME CLINICAL INFO
--- NOTE | 2022-07-01 13:41 | NUR ---
CHRIS EDDY [phone] OF [facility] PT ACCEPTED TO ROOM 412-B UNDER DR. CHAHAL CALL [phone] FOR REPORT. CALL KALEIGH PEREZ FOR TRANSPORT [facility] [phone]
--- NOTE | 2022-07-01 13:49 | NUR ---
CALLED [facility] FOR TRANSPORT ETA 60 MINS PER CECILIA.
--- NOTE | 2022-07-01 14:07 | NUR ---
REPORT GIVEN TO NORM FOR ANDRES
--- NOTE | 2022-07-01 14:42 | NUR ---
[facility] ARRIVED, REPORT GIVEN TO EMT'S. PT IS BEING TRANSPORTF TO [facility] IN STABLE CONDITION.
== END 2022-07-01 14:42 | disposition short-term general hospital (02) ==
LOC: ER 09:45
DX: R63.0 Anorexia (principal); K51.90 Ulcerative colitis, unspecified, without complications; I10 Essential (primary) hypertension; Z20.822 Contact with and (suspected) exposure to COVID-19
CPT/HCPCS: 99284; 74176; 96374; 96375; 96361; 87426; 85025; 80048; 83690; 80076; 81001; 36415; 85007; J2060; J3490; J2405 ×2; J7030 ×2; C9803

== ENCOUNTER 2022-11-24 11:44 | Inpatient (IN) | payer MEDICAID ==
[~2022-11-24] VITALS: Ht 177.8 cm; Wt 77.1 kg
--- NOTE | 2022-11-24 12:00 | NUR ---
BIB SELF, C/C ABD PAIN W HX ULCERATIVE COLITIS. A/O X 3
--- NOTE | 2022-11-24 12:22 | NUR ---
BLOOD SAMPLES OBTAINED
--- NOTE | 2022-11-24 12:22 | NUR ---
Nubia akhtar in [facility] - 11/24/22 at 1545 by SHEELA 20 g L forearm
[2022-11-24] MEDS ORDERED: LORAZEPAM INJ 2 MG/ML VIAL ONE ×2 (12:37→16:30)
[2022-11-24 12:38] LABS: BASOPHILS % (AUTO) 0.5 % (0.0-2.0); EOSINOPHILS % (AUTO) 0.1 % (0.0-6.0); HEMATOCRIT 36 % (39-51); LYMPHOCYTES # (AUTO) 1.3 K/uL (0.8-4.8); LYMPHOCYTES % (AUTO) 22.5 % (20.0-44.0); MEAN CORPUSCULAR HGB CONC 33 g/dl (31.0-36.0); MEAN CORPUSCULAR VOLUME 105 fL (80-96); MONOCYTES # (AUTO) 0.6 K/uL (0.1-1.30); MONOCYTES % (AUTO) 10.9 % (2.0-12.0); NEUTROPHILS # (AUTO) 3.8 K/uL (1.8-8.9); PLATELET COUNT (AUTO) 108 K/uL (150-450); RED BLOOD CELL COUNT(AUTO) 3.43 MIL/uL (4.5-6.0); WHITE BLOOD COUNT (AUTO) 5.8 K/uL (4.3-11.0)
[2022-11-24] MEDS ORDERED: PANTOPRAZOLE 40 MG VIAL ONE (12:47)
[2022-11-24] MEDS ORDERED: ONDANSETRON HCL/PF 4 MG/2 ML VIAL ONE (12:47)
[2022-11-24] MEDS ORDERED: PANTOPRAZOLE 40 MG VIAL IV ONE (13:00)
[2022-11-24] MEDS ORDERED: IV NS 0.9% 1,000 ML BAG IV ONE (13:00)
[2022-11-24] MEDS ORDERED: LORAZEPAM INJ 2 MG/ML VIAL IV ONE ×2 (13:00→16:30)
[2022-11-24] MEDS ORDERED: ONDANSETRON HCL/PF 4 MG/2 ML VIAL IV ONE (13:00)
[2022-11-24 13:02] LABS: CALCIUM, SERUM 9.2 mg/dL (8.5-10.1); CARBON DIOXIDE 29 mmol/L (21-32); CHLORIDE 95 mmol/L (98-107); CREATININE 1.1 mg/dL (0.6-1.3); GLUCOSE 294 mg/dL (74-106); POTASSIUM 4.3 mmol/L (3.5-5.1); SODIUM SERUM 133 mmol/L (136-145); UREA NITROGEN, BLOOD 11 mg/dL (7-18)
--- NOTE | 2022-11-24 13:02 | NUR ---
STOOL SAMPLE OBTAINED Addendum: 11/24/22 at 1425 by SHEELA Stool black and luis daniel
--- NOTE | 2022-11-24 13:02 | NUR ---
URINE SAMPLE OBTAINED
[2022-11-24 13:09] LABS: ALKALINE PHOSPHATASE 129 U/L (46-116); BILIRUBIN,DIRECT 0.4 mg/dL (0.0-0.2)
[2022-11-24 13:10] LABS: ALANINE AMINOTRANSFERASE 113 U/L (12-78); ASPARTATE AMINOTRANSFERASE 155 U/L (15-37); LIPASE 216 U/L (73-393); SERUM AMMONIA 32 umol/L (11-32); TOTAL PROTEIN, SERUM 6.8 g/dL (6.4-8.2)
[2022-11-24] MEDS ORDERED: IV NS 0.9% 250 ML IV ONE (13:28)
[2022-11-24] MEDS ORDERED: CT SWABBABLE VALVE TRANS SET 1 EA INFUS.SET MC ONE (13:28)
[2022-11-24] MEDS ORDERED: IOHEXOL-300 100 ML VIAL IV ONE (13:28)
[2022-11-24 13:29] LABS: BILIRUBIN,URINE NEGATIVE (NEGATIVE); COLOR,URINE YELLOW (YELLOW); LEUKOCYTE ESTERASE ,URINE NEGATIVE (NEGATIVE); NITRITE, URINE NEGATIVE (NEGATIVE); PH,URINE 6.5 (5.0-8.0); PROTEIN,URINE TRACE mg/dl (NEGATIVE); UGLUCOSE 2+ mg/dL (NEGATIVE)
[2022-11-24 13:48] LABS: BACTERIA,URINE None seen /HPF (None Seen); RBC,URINE 0-2 /HPF (0-2); SQUAMOUS EPITHELIAL CELL,UR Few /HPF (None Seen); WBC,URINE 0-2 /HPF (0-3)
--- NOTE | 2022-11-24 14:22 | NUR ---
COVID SWAB TAKEN
[2022-11-24 15:03] LABS: OCCULT BLOOD STOOL NEGATIVE (NEGATIVE)
[2022-11-24] MEDS ORDERED: Thiamine 100 MG/ML VIAL ONE (15:59)
[2022-11-24] MEDS ORDERED: FOLIC ACID 1 MG TABLET ONE (15:59)
[2022-11-24] MEDS ORDERED: FOLIC ACID 1 MG TABLET PO ONE (16:00)
[2022-11-24] MEDS ORDERED: IV NS 0.9% 1,000 ML IV ONE (16:00)
[2022-11-24] MEDS ORDERED: Thiamine 100 MG in IV D5W 50 ML IV SCH (16:00)
--- NOTE | 2022-11-24 19:47 | NUR ---
REPORT GIVEN TO NITA LIU 3W RN FOR ANDRES
--- NOTE | 2022-11-24 21:29 | NUR ---
PT TRANSFERRED TO 311-2 VIA ACLS PROTOCOL. VSS. ALL BELONGINGS WITH PT
--- NOTE | 2022-11-24 22:45 | NUR ---
MS THERMODYNAMICS ENGINEER NOTE ADMITTED THIS PATIENT FROM ER VIA WHEELCHAIR; PATIENT IS AMBULATORY, AWAKE, ALERT AND ORIENTED X 4. ON ROOM AIR; TOLERATING WELL SATURATING @ 99%. BREATHING EVEN AND NONLABORED. DENIES ANY PAIN OR DISCOMFORT @ THIS TIME. VS TAKEN AND RECORDED; AFEBRILE. IN NO ACUTE DISTRESS. ABLE TO MAKE NEEDS KNOWN. WITH IV ACCESS ON RIGHT FOREARM 20g; PATENT AND INTACT INFUSING WITH NS 1L RUNNING @ 100 CC/HR; FLUSHES WELL. ORIENTED TO STAFF, ROOM AND UNIT. BODY AND SKIN ASSESSMENT DONE; SKIN IS WARM TO TOUCH AND INTACT. INVENTORY OF PERSONAL BELONGINGS DONE. SAFETY MEASURES IMPLEMENTED: CALL LIGHT AND TABLE WITHIN REACH, SIDE RAILS UP X 2, BED IN LOWEST LOCKED POSITION. WILL CONTINUE TO MONITOR
[2022-11-24] MEDS ORDERED: Z GUARD REMEDY 4 OZ OINT TP PRN (23:00)
[2022-11-24] MEDS ORDERED: ACETAMINOPHEN 325 MG TABLET PO PRN (23:00)
[2022-11-24] MEDS ORDERED: MAGNESIUM HYDROXIDE 30 ML UDC PO PRN (23:00)
[2022-11-24] MEDS ORDERED: ONDANSETRON HCL/PF 4 MG/2 ML VIAL IVP PRN (23:00)
[2022-11-24] MEDS ORDERED: MAG HYDROX/AL HYDROX/SIMETH 30 ML UDC PO PRN (23:00)
[2022-11-24] MEDS: IV NS 0.9% 1,000 ML IV SCH (23:24)
[2022-11-25] MEDS: LORAZEPAM INJ 2 MG/ML VIAL IV PRN ×4 (00:11→21:39)
[2022-11-25] MEDS: CHLORDIAZEPOXIDE HCL 5 MG CAPSULE PO SCH ×3 (05:35→20:39)
--- NOTE | 2022-11-25 06:45 | NUR ---
MS RN CLOSING NOTE PATIENT IN BED; AA/O X 4. STABLE ON ROOM AIR. IN NO APPARENT DISTRESS. NO C/O ANY PAIN OR DISCOMFORT AT THIS TIME. WITH IV ACCESS ON RIGHT FA 20g; PATENT AND INTACT INFUSING WITH NS 1L REGULATED @ 100 ML/HR; FLUSHES WELL. ALL DUE MEDS GIVEN ORDERED. SAFETY MEASURES IN PLACE: CALL LIGHT AND TABLE WITHIN REACH, SIDE RAILS UP X 3, BED IN LOWEST LOCKED POSITION. ENDORSED TO MORNING SHIFT FOR ANDRES.
[2022-11-25 07:10] LABS: BASOPHILS % (AUTO) 0.5 % (0.0-2.0); EOSINOPHILS % (AUTO) 0.3 % (0.0-6.0); HEMATOCRIT 32 % (39-51); HEMOGLOBIN 10.7 g/dL (13.5-17.5); LYMPHOCYTES # (AUTO) 1.4 K/uL (0.8-4.8); LYMPHOCYTES % (AUTO) 28.7 % (20.0-44.0); MEAN CORPUSCULAR HGB CONC 34 g/dl (31.0-36.0); MEAN CORPUSCULAR VOLUME 106 fL (80-96); MONOCYTES # (AUTO) 0.4 K/uL (0.1-1.30); MONOCYTES % (AUTO) 7.5 % (2.0-12.0); PLATELET COUNT (AUTO) 79 K/uL (150-450); WHITE BLOOD COUNT (AUTO) 4.8 K/uL (4.3-11.0)
--- NOTE | 2022-11-25 07:10 | NUR ---
MS RN RECEIVED ON BED, AWAKE,ALERT,ORIENTED X4,NOT IN ANY FORM OF DISTRESS,RESPIRATIONS EVEN AND UNLABORED,NO SOB NOTED, LUNGS ARE CLEAR,ABDOMEN SOFT,POSITIVE BOWEL SOUNDS, DENIES PAIN AT THIS TIME,ALL NEEDS ATTENDED.
[2022-11-25 07:45] LABS: ALBUMIN 3.2 g/dL (3.4-5.0); BILIRUBIN,DIRECT 0.4 mg/dL (0.0-0.2); CALCIUM, SERUM 8.4 mg/dL (8.5-10.1); CREATININE 0.7 mg/dL (0.6-1.3); MAGNESIUM 1.9 mg/dL (1.8-2.4); PHOSPHORUS 3.6 mg/dL (2.5-4.9); POTASSIUM 3.5 mmol/L (3.5-5.1); TOTAL PROTEIN, SERUM 5.5 g/dL (6.4-8.2)
[2022-11-25 08:00] VITALS: BP 141/94
[2022-11-25] MEDS: THIAMINE HCL 100 MG TABLET PO SCH (08:49)
[2022-11-25] MEDS: FOLIC ACID 1 MG TABLET PO SCH (08:49)
[2022-11-25] MEDS: IV NS 0.9% 1,000 ML IV SCH ×3 (08:51→21:32)
--- NOTE | 2022-11-25 09:00 | NUR ---
ms rn breakfast served.due meds given,tolerated well, was seen by dr. robinson liao/ orders made and carried out.all needs attended.
[2022-11-25] MEDS ORDERED: PANTOPRAZOLE 40 MG VIAL IV SCH (10:30)
[2022-11-25 16:00] VITALS: BP 133/93
--- NOTE | 2022-11-25 18:30 | NUR ---
ms rn on bed, all needs attended,no distress noted.
[2022-11-25 20:00] VITALS: BP_SYST 135; BP_DIAS 78; BP_DIAS 98
[2022-11-25 20:46] LABS: LYMPHOCYTES % (MANUAL) 26 % (16-48); MONOCYTES % (MANUAL) 11 % (0-11.0); NEUTROPHILS % (MANUAL) 63 (42-76)
[2022-11-26] MEDS: LORAZEPAM INJ 2 MG/ML VIAL IV PRN ×2 (03:20→09:49)
[2022-11-26] MEDS: CHLORDIAZEPOXIDE HCL 5 MG CAPSULE PO SCH ×2 (04:50→12:11)
[2022-11-26] MEDS: IV NS 0.9% 1,000 ML IV SCH (05:33)
[2022-11-26 06:31] LABS: BASOPHILS % (AUTO) 0.6 % (0.0-2.0); EOSINOPHILS % (AUTO) 0.6 % (0.0-6.0); HEMATOCRIT 30 % (39-51); HEMOGLOBIN 10.3 g/dL (13.5-17.5); LYMPHOCYTES % (AUTO) 26.9 % (20.0-44.0); MEAN CORPUSCULAR HGB CONC 34 g/dl (31.0-36.0); MEAN CORPUSCULAR VOLUME 107 fL (80-96); MONOCYTES # (AUTO) 0.3 K/uL (0.1-1.30); MONOCYTES % (AUTO) 7.7 % (2.0-12.0); NEUTROPHILS # (AUTO) 2.3 K/uL (1.8-8.9); NEUTROPHILS % (AUTO) 64.2 % (43.0-81.0); PLATELET COUNT (AUTO) 71 K/uL (150-450); RED BLOOD CELL COUNT(AUTO) 2.82 MIL/uL (4.5-6.0); WHITE BLOOD COUNT (AUTO) 3.6 K/uL (4.3-11.0)
[2022-11-26 06:57] LABS: CALCIUM, SERUM 7.3 mg/dL (8.5-10.1); CREATININE 0.6 mg/dL (0.6-1.3); MAGNESIUM 1.6 mg/dL (1.8-2.4); PHOSPHORUS 3.5 mg/dL (2.5-4.9)
--- NOTE | 2022-11-26 07:50 | NUR ---
MS RN OPENING NOTE Patient observed to be sleeping in bed with even, steady breathing, no signs of distress and easily aroused. Found to be alert and oriented x 4 with minimal discomfort at the moment. Safety precautions maintained: bed brakes locked; 3 bed side rails upright/locked; bed inlowest position; bed alarm on; and call lima/light within patient's reach. No signs of delirium tremens at this time. Will continue to monitor and care for patient per hospitalist's POC.
[2022-11-26] MEDS ORDERED: PANTOPRAZOLE 40 MG TABLET.DR PO SCH (08:30)
[2022-11-26] MEDS: FOLIC ACID 1 MG TABLET PO SCH (09:00)
[2022-11-26] MEDS ORDERED: POTASSIUM CHLORIDE 20 MEQ TAB.PRT.SR PO ONE (09:00)
[2022-11-26] MEDS ORDERED: MAGNESIUM OXIDE 400 MG TABLET PO ONE ×2 (09:00→10:30)
[2022-11-26] MEDS: THIAMINE HCL 100 MG TABLET PO SCH (09:01)
[2022-11-26] MEDS ORDERED: PANT40TA49 PO (09:42)
[2022-11-26] MEDS ORDERED: LORA-259 PO (09:42)
--- NOTE | 2022-11-26 12:34 | NUR ---
MS FUR MATCHER PATIENT HOME NOTE Patient tolerated well the removal of the PIV catheter fully intact without complications. Patient demonstrated understanding of his home care discharge instructions using the teach back method in his own words. Patient departed the SO on foot, walking steady to [facility] bound for his home at 12:30 PM.
[2022-11-26 13:26] LABS: BASOPHILS % (MANUAL) 0 % (0.0-2.0); EOSINOPHILS % (MANUAL) 2 % (0-4); LYMPHOCYTES % (MANUAL) 22 % (16-48); MONOCYTES % (MANUAL) 9 % (0-11.0); NEUTROPHILS % (MANUAL) 67 (42-76)
== END 2022-11-26 12:15 | disposition home or self-care (01) | DRG 280 ==
LOC: ER 11:49 → TELE 21:13 → MED 23:51
PROVIDERS: ADMIT Internal Medicine; ATTEND Internal Medicine
DX: K70.10 Alcoholic hepatitis without ascites (principal); E43 Unspecified severe protein-calorie malnutrition; E87.20 Acidosis, unspecified; E87.1 Hypo-osmolality and hyponatremia; E88.09 Other disorders of plasma-protein metabolism, not elsewhere classified; K51.911 Ulcerative colitis, unspecified with rectal bleeding; R19.5 Other fecal abnormalities; K76.0 Fatty (change of) liver, not elsewhere classified; R16.0 Hepatomegaly, not elsewhere classified; E86.1 Hypovolemia; F10.239 Alcohol dependence with withdrawal, unspecified; Z20.822 Contact with and (suspected) exposure to COVID-19; I10 Essential (primary) hypertension; Y90.9 Presence of alcohol in blood, level not specified; D53.9 Nutritional anemia, unspecified; F17.200 Nicotine dependence, unspecified, uncomplicated; Z87.11 Personal history of peptic ulcer disease; Z87.19 Personal history of other diseases of the digestive system; K57.30 Diverticulosis of large intestine without perforation or abscess without bleeding; N32.3 Diverticulum of bladder; N40.0 Benign prostatic hyperplasia without lower urinary tract symptoms; Z68.24 Body mass index [BMI] 24.0-24.9, adult
CPT/HCPCS: 36415; 80048-TC; 80076-TC; 81001; 82140-TC; 82272-TC; 83605-TC; 83690-TC; 83735-TC; 84100-TC; 85025-TC; 85730-TC; 87081-TC; A4223; C9113; C9803; G0378; J2060; J2405; J3411; J3490; J7030; J7050; J7060; Q9967

== ENCOUNTER 2023-02-16 16:57 | Inpatient (IN) | payer MEDICAID ==
[~2023-02-16] VITALS: Ht 177.8 cm; Wt 81.6 kg
[~2023-02-16 16:57] MED LIST changes: -CHOL500052 PO; -ESCI10TA PO; -FAMO-131 PO; -LEVO500T90 PO; -LISI10TA29 PO; +LORA-259 PO; -METR500T PO; +PANT40TA49 PO; -TAMS-12 PO
[2023-02-16 17:56] LABS: BASOPHILS % (AUTO) 0.3 % (0.0-2.0); HEMATOCRIT 43 % (39-51); HEMOGLOBIN 14.1 g/dL (13.5-17.5); LYMPHOCYTES # (AUTO) 2.1 K/uL (0.8-4.8); LYMPHOCYTES % (AUTO) 14.2 % (20.0-44.0); MEAN CORPUSCULAR HGB CONC 33 g/dl (31.0-36.0); MEAN CORPUSCULAR VOLUME 110 fL (80-96); MONOCYTES # (AUTO) 1.3 K/uL (0.1-1.30); MONOCYTES % (AUTO) 8.8 % (2.0-12.0); NEUTROPHILS # (AUTO) 11.2 K/uL (1.8-8.9); NEUTROPHILS % (AUTO) 76.7 % (43.0-81.0); PLATELET COUNT (AUTO) 191 K/uL (150-450); WHITE BLOOD COUNT (AUTO) 14.6 K/uL (4.3-11.0)
[2023-02-16] MEDS ORDERED: ONDANSETRON HCL/PF - ER 4 MG/2 ML VIAL IV ONE (18:00)
[2023-02-16] MEDS ORDERED: IV NS 0.9% 1,000 ML BAG IV ONE (18:00)
[2023-02-16] MEDS ORDERED: PANTOPRAZOLE 40 MG VIAL IV ONE (18:00)
[2023-02-16] MEDS ORDERED: LORAZEPAM INJ 2 MG/ML VIAL IV ONE (18:00)
--- NOTE | 2023-02-16 18:00 | NUR ---
PT IN BED 7, A/O X4 BREATHING IS UNLABORED 98% O2 SAT ON ROOM AIR. C/O: AB PAIN 7/10 Hx OF ALCOHOL ABUSE DAILY DRINKER AND SMOKES. X6 DAYS PT STATES HE HAS UNABLE TO TOLRATE FOOD X4DAY N/V, PT ALSO REPORT DARK STOOLS AND DARK VOMITOUS. PT CONNECTED TO BEDSIDE MONITOR FOR CARDIAC, PB, RESPIRATORS MONITORING. TACHYCARDIA NOTED 130'S PB BORDER LINE LOW. PLACED IN BED LOCKED, SIDE RAILS UP, IN LOWEST MARIMAR IN HIGH FOWLERS.
[2023-02-16 18:07] LABS: CALCIUM, SERUM 10.2 mg/dL (8.5-10.1); CARBON DIOXIDE 21 mmol/L (21-32); CHLORIDE 97 mmol/L (98-107); CREATININE 0.9 mg/dL (0.6-1.3); GLUCOSE 135 mg/dL (74-106); POTASSIUM 4.4 mmol/L (3.5-5.1); SODIUM SERUM 135 mmol/L (136-145); UREA NITROGEN, BLOOD 28 mg/dL (7-18)
[2023-02-16] MEDS ORDERED: LORAZEPAM INJ 2 MG/ML VIAL ONE (18:12)
[2023-02-16] MEDS ORDERED: ONDANSETRON HCL/PF 4 MG/2 ML VIAL ONE (18:12)
[2023-02-16] MEDS ORDERED: PANTOPRAZOLE 40 MG VIAL ONE (18:12)
[2023-02-16 18:27] LABS: ALANINE AMINOTRANSFERASE 45 U/L (12-78); ALBUMIN 4.3 g/dL (3.4-5.0); ALKALINE PHOSPHATASE 113 U/L (46-116); ASPARTATE AMINOTRANSFERASE 51 U/L (15-37); BILIRUBIN,DIRECT 0.4 mg/dL (0.0-0.2); BILIRUBIN,TOTAL 1.6 mg/dL (0.2-1.0); LIPASE 95 U/L (73-393); TOTAL PROTEIN, SERUM 7.4 g/dL (6.4-8.2)
--- NOTE | 2023-02-16 18:30 | NUR ---
18G LFA STARTED BLOOD DRAWN AND SENT TO LAB
--- NOTE | 2023-02-16 18:33 | NUR ---
MOVE SHEET SUBMITTED.
--- NOTE | 2023-02-16 18:50 | NUR ---
PT TAKEN TO CT.
[2023-02-16 19:24] LABS: LYMPHOCYTES % (MANUAL) 23 % (16-48); MONOCYTES % (MANUAL) 9 % (0-11.0); NEUTROPHILS % (MANUAL) 68 (42-76)
--- NOTE | 2023-02-16 20:24 | NUR ---
DR WHITLOCK ON PHONE CALL WITH Pipo DONALD ADMITTING HOSPITALIST
--- NOTE | 2023-02-16 20:52 | NUR ---
GOT 309 BED 1 ADMITTING AWARE
--- NOTE | 2023-02-16 21:21 | NUR ---
3w nurse busy with pt will call back in 20 min
--- NOTE | 2023-02-16 22:07 | NUR ---
report given to charge nurse on 3w flooe for inpatient services.
[2023-02-16 22:40] VITALS: BP 124/95
--- NOTE | 2023-02-16 22:40 | NUR ---
CEMENTER HELPER ADMITTING NOTE PT ARRIVED TO UNIT AT 2240, ASSISTED BY ER STAFF. A/O X4, ABLE TO MAKE NEEDS KNOWN, STATED BEING A LITTLE WEAK. ABLE TO WALK, NO DISTRESS NOTED. VITAL SIGNS: 124/95 BP, 120 HR, 20 RR, 99.0 F TEMP, 95% O2. WEIGHT: 180.6 LB. ON O2 TOLERATING WELL, NO SOB OR LABORED BREATHING. C/O MINOR DULL PAIN TO ABDOMEN, AUSCULTATED WITH HYPOACTIVE BOWEL SOUNDS, SOME TENDERNESS. PLACED ON CASINO HOST READING SINUS TACHYCARDIA, 120 HR. IV ACCESS LFA #20 PATENT, INTACT, FLUSHING WELL. SKIN ASSESSMENT PERFORMED, NO ISSUES NOTED. PT STATES WANTING TO BE DNR/DNI, WILL NOTIFY DOCTOR. PT ASKING FOR ATIVAN AND ZOFRAN, EXPLAINED THAT THESE MEDS ARE EVERY 6 HOURS AND NOT DUE AT THIS TIME, VERBALIZED UNDERSTANDING. PT ORIENTED TO UNIT AND HOW TO USE CALL LIGHT. MADE COMFORTABLE AND GIVEN WATER. CLEAR LIQUID DIET ORDER MAINTAINED AND EXPLAINED TO PT, VERBALIZED UNDERSTANDING. SAFETY MEASURES PUT IN PLACE: BED LOCKED AND IN LOW POSITION, HOB ELEVATED, SIDE RAILS UP X3, CALL LIGHT AND TRAY TABLE WITHIN REACH. WILL CONTINUE TO MONITOR AND ASSIST. Addendum: 02/17/23 at 0133 by YAA BOWSER RN CORRECTION: IV ACCESS #18 GAUGE
[2023-02-16] MEDS ORDERED: Thiamine 100 MG in IV D5W 50 ML IV SCH (23:00)
[2023-02-16] MEDS: Folic acid 1 MG in IV D5W 50 ML IV SCH (23:00)
[2023-02-16] MEDS ORDERED: IV NS 0.9% 1,000 ML IV PRN (23:00)
[2023-02-16] MEDS ORDERED: ACETAMINOPHEN 325 MG TABLET PO PRN (23:00)
[2023-02-16] MEDS ORDERED: Z GUARD REMEDY 4 OZ OINT TP PRN (23:00)
[2023-02-16] MEDS ORDERED: MAGNESIUM HYDROXIDE 30 ML UDC PO PRN (23:00)
[2023-02-16] MEDS ORDERED: MAG HYDROX/AL HYDROX/SIMETH 30 ML UDC PO PRN (23:00)
[2023-02-17] VITALS: BP 142/94
[2023-02-17] MEDS: LORAZEPAM INJ 2 MG/ML VIAL IV PRN ×2 (00:31→20:05)
[2023-02-17] MEDS: ONDANSETRON HCL/PF 4 MG/2 ML VIAL IVP PRN ×2 (00:31→10:17)
--- NOTE | 2023-02-17 00:44 | NUR ---
RN NOTE ATIVAN 1MG/0.5ML WASTED DUE TO PARTIAL DOSE, WITNESSED BY TIFFANIE RUSSELL RN.
[2023-02-17] MEDS ORDERED: Thiamine 100 MG/ML VIAL ONE (01:43)
--- NOTE | 2023-02-17 02:15 | NUR ---
RN NOTE HOSPITALIST FOR THE NIGHT, DEVON DONALD BLOOD TYPER, INFORMED OF THE FOLLOWING: * PT TROUBLE PEEING, ONLY ABLE TO VOID 150 ML OF GIANNI, CLOUDY URINE. C/O SOME TENDERNESS ON BLADDER AREA. BLADDER SCAN SHOWED 731 ML. PT ALSO STATED HE USED TO TAKE FLOMAX. KAYDEN DONALD ORDERED HERNANDEZ INSERTION AND FLOMAX ADDED TO MEDICATIONS. * PT WISHES TO BE DNR/DNI, STATES HE SAW WHAT HAPPENED TO A DYING FAMILY MEMBER BEFORE AND DOES NOT WANT TO GO THROUGH THE SAME THING. KAYDEN DONALD CONFIRMED CODE STATUS.
--- NOTE | 2023-02-17 02:21 | NUR ---
RN NOTE FOLIC ACID NON-ADMIN DUE TO DRUG NOT AVAILABLE IN FACILITY PER NURSING STATIONARY BOILER FIREMAN. THIAMINE 100 MG LATE ADMIN DUE TO LATE AVAILABILITY.
[2023-02-17 04:00] VITALS: BP 124/80
--- NOTE | 2023-02-17 05:38 | NUR ---
RN NOTE PT VOIDED IN URINAL AT 0410 WITH 250 ML OF GIANNI, CLOUDY URINE. HERNANDEZ CATHETER 16 FR INSERTION STARTED AT 0415 BUT UNSUCCESSFUL, MET WITH RESISTANCE AND NO URINE RETURN. PT WAS GIVEN TYLENOL 45 MINS EARLIER BUT DID NOT HELP WITH PAIN/DISCOMFORT. PT VERY ANXIOUS ABOUT THE PROCEDURE. WHEN EXPLAINED THAT INSERTION IS UNSUCCESSFUL, PT WAS REFUSING ANOTHER TRY. CHARGE NURSE MADE AWARE AND ENCOURAGED PT TO TRY A STRAIGHT CATH WITH 15 FR, EXPLAINED RISK/BENEFITS, PT VERBALIZED UNDERSTANDING AND AGREED. STRAIGHT CATH INSERTION SUCCESSFUL, DRAINED 600 ML OF GIANNI, CLOUDY URINE AFTER 10 MINS OF DRAINING. PT VERBALIZED RELIEF FROM BLADDER DISTENTION. PT TOLERATED REMOVAL OF CATHETER.
[2023-02-17 06:21] LABS: BILIRUBIN,URINE 1+ (NEGATIVE); COLOR,URINE DARK YELLOW (YELLOW); LEUKOCYTE ESTERASE ,URINE 2+ (NEGATIVE); NITRITE, URINE NEGATIVE (NEGATIVE); PROTEIN,URINE 1+ mg/dl (NEGATIVE); UGLUCOSE NEGATIVE (NEGATIVE); UROBILINOGEN,URINE 0.2 EU/dL (0.2)
[2023-02-17 06:23] LABS: BASOPHILS % (AUTO) 0.4 % (0.0-2.0); EOSINOPHILS % (AUTO) 0.1 % (0.0-6.0); HEMATOCRIT 37 % (39-51); HEMOGLOBIN 12.4 g/dL (13.5-17.5); LYMPHOCYTES % (AUTO) 28.7 % (20.0-44.0); MEAN CORPUSCULAR HGB CONC 34 g/dl (31.0-36.0); MEAN CORPUSCULAR VOLUME 107 fL (80-96); MONOCYTES # (AUTO) 0.6 K/uL (0.1-1.30); MONOCYTES % (AUTO) 8.7 % (2.0-12.0); NEUTROPHILS # (AUTO) 4.4 K/uL (1.8-8.9); NEUTROPHILS % (AUTO) 62.1 % (43.0-81.0); PLATELET COUNT (AUTO) 135 K/uL (150-450); RED BLOOD CELL COUNT(AUTO) 3.41 MIL/uL (4.5-6.0); WHITE BLOOD COUNT (AUTO) 7.1 K/uL (4.3-11.0)
[2023-02-17] MEDS ORDERED: CEFTRIAXONE 1GM BAG (ER ONLY) 50 ML IV ONE (06:25)
[2023-02-17 06:32] LABS: BACTERIA,URINE Rare /HPF (None Seen); SQUAMOUS EPITHELIAL CELL,UR Few /HPF (None Seen)
[2023-02-17] MEDS: CEFTRIAXONE 1 G in IV D5W 50 ML IV SCH (06:32)
[2023-02-17 06:56] LABS: CALCIUM, SERUM 8.3 mg/dL (8.5-10.1); CREATININE 0.8 mg/dL (0.6-1.3); MAGNESIUM 1.4 mg/dL (1.8-2.4); PHOSPHORUS 2.4 mg/dL (2.5-4.9); POTASSIUM 3.5 mmol/L (3.5-5.1)
--- NOTE | 2023-02-17 07:00 | NUR ---
ELEVATOR TROUBLESHOOTER CLOSING NOTE PT AWAKE IN BED USING LAPTOP AT THIS TIME. A/O X4, ABLE TO MAKE NEEDS KNOWN. ON RA TOLERATING WELL, NO SOB OR LABORED BREATHING. ON INDUSTRIAL GAS SERVICER SUPERVISOR READING SINUS TACHYCARDIA, 113 HR. IV ACCESS LFA #18 PATENT, INTACT, FLUSHING WELL, RUNNING NS @ 75 ML/HR. ALL CARE PROVIDED AND MEDS TOLERATED WELL. CLEAR LIQUID DIET ORDER MAINTAINED. SAFETY MEASURES MAINTAINED: BED LOCKED AND IN LOW POSITION, HOB ELEVATED, SIDE RAILS UP X3, CALL LIGHT AND TRAY TABLE WITHIN REACH. WILL ENDORSE ANDRES TO DAY SHIFT NURSE.
--- NOTE | 2023-02-17 07:48 | NUR ---
AUTOMOBILE TECHNICIAN OPENING NOTE RECEIVED PATIENT AWAKE IN BED USING LAPTOP AT THIS TIME. A/O X4, ABLE TO MAKE NEEDS KNOWN. ON RA TOLERATING WELL, NO SOB OR LABORED BREATHING. NO COMPLAINT OF PAIN AT THIS TIME. ON FELTING MACHINE OPERATOR READING SINUS TACHYCARDIA, 113 HR. IV ACCESS LFA #18 PATENT, INTACT, FLUSHING WELL, RUNNING NS @ 75 ML/HR. ON CLEAR LIQUID DIET. SAFETY MEASURES MAINTAINED: BED LOCKED AND IN LOW POSITION, HOB ELEVATED, SIDE RAILS UP X3, CALL LIGHT AND TRAY TABLE WITHIN REACH. WILL CONTINUE TO MONITOR PATIENT.
[2023-02-17] MEDS: MULTIVITAMINS,THERAGRAN 1 UDTAB TABLET PO SCH (08:59)
[2023-02-17] MEDS: CHLORDIAZEPOXIDE HCL 25 MG CAPSULE PO SCH ×2 (08:59→16:10)
[2023-02-17] MEDS: PANTOPRAZOLE 40 MG VIAL IV SCH ×2 (08:59→16:11)
[2023-02-17] MEDS: METRONIDAZOLE 500MG/ NS 100ML 500 MG in PREMIX 1 EA IV SCH ×4 (09:14→23:47)
[2023-02-17] MEDS: Magnesium 1GM/D5W 100ML PREMIX 100 ML IV SCH ×4 (12:20→15:27)
[2023-02-17] MEDS ORDERED: K PHOS NEUTRAL 250 MG TABLET PO ONE (16:00)
[2023-02-17 16:08] VITALS: BP 136/68
--- NOTE | 2023-02-17 18:41 | NUR ---
BENCH LATHE OPERATOR CLOSING NOTE PT AWAKE IN BED USING HIS LAPTOP. A/O X4, ABLE TO MAKE NEEDS KNOWN. ON RA TOLERATING WELL, NO SOB OR LABORED BREATHING. NO COMPLAINT OF PAIN AT THIS TIME. ON ART HANDLER READING SINUS TACHY HR 110. IV ACCESS LEFT WRIST G#22 PATENT, INTACT, FLUSHING WELL, RUNNING NS @ 75 ML/HR. ALL CARE PROVIDED AND MEDS GIVEN AND TOLERATED WELL. CLEAR LIQUID DIET ORDER MAINTAINED. SAFETY MEASURES MAINTAINED: BED LOCKED AND IN LOW POSITION, HOB ELEVATED, SIDE RAILS UP X3, CALL LIGHT AND TRAY TABLE WITHIN REACH. WILL ENDORSE TO THE ASSISTANT SALES MANAGER NURSE FOR ANDRES.
[2023-02-17] MEDS ORDERED: Thiamine 100 MG in IV D5W 50 ML IV SCH (19:00)
--- NOTE | 2023-02-17 19:45 | NUR ---
SOCIAL MEDIA MARKETING MANAGER NOTES RECEIVED ON BED,ON SITTING POSITION,A/O X4,BREATHING EASY,NO SOB.PRESENT IVF NS AT 75ML/HR RATE INFUSING ON LEFT WRIST,SITE PATENT.WILL MONITOR FOR DT'S AND ALCOHOL WITHDRAWAL.DNR/DNI STATUS.CALL LIGHT IN REACH,NEEDS ANTICIPATED.
[2023-02-17 20:00] VITALS: BP 126/86
--- NOTE | 2023-02-17 20:05 | NUR ---
JEWELRY POLISHER NOTES FEELING ANXIOUS,ATIVAN 1MG IV GIVEN ORDERED.WASTED 1MG WITNESSED BY RN DYLAN
[2023-02-17] MEDS: Folic acid 1 MG in IV D5W 50 ML IV SCH (22:54)
[2023-02-17] MEDS: ZOLPIDEM TARTRATE 5 MG TABLET PO PRN (23:06)
--- NOTE | 2023-02-17 23:06 | NUR ---
GAMING WORKER NOTES C/O INSOMNIA,AMBIEN 5MG PO GIVEN ORDERED.
[2023-02-18] VITALS (7 sets, daily range): BP systolic 116–120; BP diastolic 76–87
--- NOTE | 2023-02-18 04:00 | NUR ---
PEST MANAGEMENT SUPERVISOR NOTES STOOL FOR OB COLLECTED,SENT TO LAB.
[2023-02-18] MEDS: CEFTRIAXONE 1 G in IV D5W 50 ML IV SCH (05:19)
[2023-02-18] MEDS: METRONIDAZOLE 500MG/ NS 100ML 500 MG in PREMIX 1 EA IV SCH ×4 (05:55→23:17)
[2023-02-18 06:07] LABS: OCCULT BLOOD STOOL POSITIVE (NEGATIVE)
[2023-02-18] MEDS: LORAZEPAM INJ 2 MG/ML VIAL IV PRN ×2 (06:21→20:15)
--- NOTE | 2023-02-18 06:21 | NUR ---
ENAMEL MACHINE OPERATOR NOTES FEELING ANXIOUS,ATIVAN 1MG IV GIVEN ORDERED FOR ANXIETY.
[2023-02-18 06:51] LABS: BASOPHILS % (AUTO) 0.4 % (0.0-2.0); EOSINOPHILS % (AUTO) 0.5 % (0.0-6.0); HEMATOCRIT 36 % (39-51); HEMOGLOBIN 12.2 g/dL (13.5-17.5); LYMPHOCYTES # (AUTO) 1.6 K/uL (0.8-4.8); MEAN CORPUSCULAR HGB CONC 34 g/dl (31.0-36.0); MEAN CORPUSCULAR VOLUME 107 fL (80-96); MONOCYTES # (AUTO) 0.4 K/uL (0.1-1.30); MONOCYTES % (AUTO) 6.8 % (2.0-12.0); NEUTROPHILS # (AUTO) 4.3 K/uL (1.8-8.9); NEUTROPHILS % (AUTO) 67.3 % (43.0-81.0); PLATELET COUNT (AUTO) 114 K/uL (150-450); RED BLOOD CELL COUNT(AUTO) 3.39 MIL/uL (4.5-6.0); WHITE BLOOD COUNT (AUTO) 6.3 K/uL (4.3-11.0)
--- NOTE | 2023-02-18 07:02 | NUR ---
SMALL ARMS ARTILLERY REPAIRER NOTES REMAINS SINUS TACH ON TELE MONITOR.HAD BOWEL MOVEMENT,SPECIMEN SENT TO LAB.WILL ENDORSE TO DAY NURSE FOR ANDRES.
[2023-02-18 07:12] LABS: CALCIUM, SERUM 8.9 mg/dL (8.5-10.1); CREATININE 0.7 mg/dL (0.6-1.3); MAGNESIUM 2.1 mg/dL (1.8-2.4); PHOSPHORUS 3.8 mg/dL (2.5-4.9)
--- NOTE | 2023-02-18 07:15 | NUR ---
ASSOCIATE PRODUCT INTEGRITY ENGINEER OPENING NOTE RECEIVED PATIENT AWAKE IN BED USING HIS LAPTOP. A/O X4, ABLE TO MAKE NEEDS KNOWN. ON RA TOLERATING WELL, NO SOB OR LABORED BREATHING. NO COMPLAINT OF PAIN AT THIS TIME. ON TICKET BROKER READING SINUS TACHYCARDIA, 105 HR. IV ACCESS LFA #18 PATENT, INTACT, AND FLUSHES WELL, RUNNING NS @ 75 ML/HR. ON CLEAR LIQUID DIET. SAFETY MEASURES MAINTAINED: BED LOCKED AND IN LOW POSITION, HOB ELEVATED, SIDE RAILS UP X3, CALL LIGHT AND TRAY TABLE WITHIN REACH. WILL CONTINUE TO MONITOR PATIENT.
[2023-02-18] MEDS: CHLORDIAZEPOXIDE HCL 25 MG CAPSULE PO SCH ×2 (08:32→16:08)
[2023-02-18] MEDS: MULTIVITAMINS,THERAGRAN 1 UDTAB TABLET PO SCH (08:32)
[2023-02-18] MEDS: PANTOPRAZOLE 40 MG VIAL IV SCH ×2 (08:32→16:08)
[2023-02-18] MEDS: POTASSIUM CHLORIDE 20 MEQ POWDER PACKET PO SCH ×2 (10:09→11:37)
--- NOTE | 2023-02-18 13:00 | NUR ---
RN NOTES ORDERED TO D/C TELE.
--- NOTE | 2023-02-18 13:40 | NUR ---
RN NOTE TELE BOX HANDED TO SKYE.
--- NOTE | 2023-02-18 18:30 | NUR ---
RN CLOSING NOTE PATIENT AWAKE IN BED USING HIS PHONE. A/O X4, ABLE TO MAKE NEEDS KNOWN. ON RA TOLERATING WELL, NO SOB OR LABORED BREATHING. NO COMPLAINT OF PAIN AT THIS TIME. IV ACCESS ON LEFT WRIST G#22 PATENT, INTACT, FLUSHING WELL, RUNNING NS @ 75 ML/HR. ALL CARE PROVIDED, MEDS GIVEN AND TOLERATED WELL. SOFT DIET ORDER MAINTAINED. SAFETY MEASURES MAINTAINED: BED LOCKED AND IN LOW POSITION, HOB ELEVATED, SIDE RAILS UP X3, CALL LIGHT AND TRAY TABLE WITHIN REACH. WILL ENDORSE TO THE DIORAMA MODEL MAKER NURSE FOR ANDRES.
--- NOTE | 2023-02-18 19:20 | NUR ---
MS RN OPENING NOTE PATIENT IS SITTING ON HIS BED, USING HIS LAPTOP. HE IS ON RA, TOLERATED WELL. NO S/S OF DISTRESS OR SOB. PT IS ALERT AND ORIENTED, AO X 4. IV ACCESS IS AT HIS L WRIST, #22G, SL. FLUSHED WITH NS, THE IV SITE IS LEAKING. REMOVED THE CATHETER, COVERED THE SITE WITH A GAUZE AND TAPE. INSERTED A NEW IV ACCESS AT HIS L HAND, #22G, FLUSHED WELL. THE NEW IV SITE IS PATENT AND INTACT. SAFETY MEASURES ARE IN PLACED: BED IN LOWEST AND LOCKED POSITION; SIDE RAILS UP X 2; CALL LIGHT AND TABLE ARE WITHIN REACH. WILL CONTINUE MONITORING THE PT AND PROVIDE THE CARE PT NEEDS.
--- NOTE | 2023-02-18 20:20 | NUR ---
MS RN NOTE PT STATED THAT HE WAS HAVING SEVERE ANXIETY SYMPTOM AND NEEDED MEDICATIONS FOR HIM TO CALM DOWN. PRN IV MEDICATION, ATIVAN,, ADMINISTERED PER MD ORDER.
[2023-02-18] MEDS ORDERED: THIAMINE HCL 100 MG TABLET PO SCH (22:00)
[2023-02-18] MEDS ORDERED: FOLIC ACID 1 MG TABLET PO SCH (22:00)
[2023-02-18] MEDS: ZOLPIDEM TARTRATE 5 MG TABLET PO PRN (23:22)
--- NOTE | 2023-02-18 23:22 | NUR ---
MS RN NOTE PT STATED HE COULD NOT FALL ASLEEP. PRN PO MEDICATION, AMBIEN, ADMINISTERED PER MD ORDER.
[2023-02-19] MEDS: CEFTRIAXONE 1 G in IV D5W 50 ML IV SCH (05:21)
[2023-02-19] MEDS: LORAZEPAM INJ 2 MG/ML VIAL IV PRN (05:30)
[2023-02-19 05:55] LABS: BASOPHILS % (AUTO) 0.4 % (0.0-2.0); HEMATOCRIT 37 % (39-51); HEMOGLOBIN 12.4 g/dL (13.5-17.5); LYMPHOCYTES # (AUTO) 1.8 K/uL (0.8-4.8); LYMPHOCYTES % (AUTO) 36.2 % (20.0-44.0); MEAN CORPUSCULAR HGB CONC 34 g/dl (31.0-36.0); MEAN CORPUSCULAR VOLUME 110 fL (80-96); MONOCYTES # (AUTO) 0.3 K/uL (0.1-1.30); MONOCYTES % (AUTO) 5.9 % (2.0-12.0); NEUTROPHILS # (AUTO) 2.9 K/uL (1.8-8.9); NEUTROPHILS % (AUTO) 56.5 % (43.0-81.0); PLATELET COUNT (AUTO) 108 K/uL (150-450); RED BLOOD CELL COUNT(AUTO) 3.37 MIL/uL (4.5-6.0); WHITE BLOOD COUNT (AUTO) 5.1 K/uL (4.3-11.0)
[2023-02-19 06:02] LABS: CREATININE 0.7 mg/dL (0.6-1.3); MAGNESIUM 1.7 mg/dL (1.8-2.4); PHOSPHORUS 4.4 mg/dL (2.5-4.9); POTASSIUM 3.3 mmol/L (3.5-5.1)
[2023-02-19] MEDS: METRONIDAZOLE 500MG/ NS 100ML 500 MG in PREMIX 1 EA IV SCH ×2 (06:07→11:06)
--- NOTE | 2023-02-19 06:41 | NUR ---
MS RN NOTE PT TODAY'S AM LAB DRAW RESULT: POTASSIUM IS 3.3 AND MAGNESIUM IS 1.7. NOTIFIED MEDICAL CARE MANAGER DEVON DONALD AND CHARGE NURSE, VIC.
--- NOTE | 2023-02-19 06:47 | NUR ---
MS RN NOTE PHARMACY CALLED REGARDING PT'S IV MEDICATION: FLAGYL. ACCORDING TO THE PHONE CALL, PT'S IV FLAGYL IV MEDIATION WILL BE DC AFTER THE NOON TIME DOSE. AFTER THE NOON TIME DOSE, THIS MEDICATION WILL BE CHANGED INTO PO MEDICATION. WILL ENDORSE TO NEXT SHIFT NURSE.
--- NOTE | 2023-02-19 07:28 | NUR ---
MS RN CLOSING NOTE PATIENT IS SITTING ON HIS BED, USING HIS LAPTOP. HE IS ON RA, TOLERATED WELL. NO S/S OF DISTRESS OR SOB. PT IS ALERT AND ORIENTED, AO X 4. IV ACCESS IS AT HIS L HAND, #22G, INFUSING NS @ 75 ML/HR. IV SITE IS PATENT AND INTACT. SAFETY MEASURES ARE IN PLACED: BED IN LOWEST AND LOCKED POSITION; SIDE RAILS UP X 2; CALL LIGHT AND TABLE ARE WITHIN REACH. ENDORSED NEXT SHIFT NURSE FOR CONTINUING PT CARE.
--- NOTE | 2023-02-19 07:30 | NUR ---
RN MS NOTES PT IN BED, AWAKE, ALERT AND ORIENTED, NO COMPLAINT OF PAIN, NOT IN DISTRESS, USING HIS COMPUTER IN BED, IV FLUIDS INFUSING WELL, CALL LIGHT WITHIN REACH.
[2023-02-19 08:26] VITALS: BP 137/78
[2023-02-19] MEDS: PANTOPRAZOLE 40 MG VIAL IV SCH (08:51)
[2023-02-19] MEDS: MULTIVITAMINS,THERAGRAN 1 UDTAB TABLET PO SCH (08:51)
[2023-02-19] MEDS: CHLORDIAZEPOXIDE HCL 25 MG CAPSULE PO SCH (08:51)
[2023-02-19] MEDS ORDERED: THIA100T74 PO (10:17)
[2023-02-19] MEDS ORDERED: PANT40TA2 PO (10:17)
[2023-02-19] MEDS ORDERED: MULT-24 PO (10:17)
[2023-02-19] MEDS ORDERED: POTASSIUM CHLORIDE 20 MEQ TAB.PRT.SR PO SCH (10:30)
[2023-02-19] MEDS ORDERED: MAGNESIUM OXIDE 400 MG TABLET PO ONE (11:00)
--- NOTE | 2023-02-19 13:33 | NUR ---
RN MS NOTES PT AWAKE, ALERT AND ORIENTED, DENIES PAIN, BREATHING PATTERN NORMAL, ABLE TO AMBULATE WITH STEADY GAIT, DISCHARGE ORDER GIVEN BY DR. ABBASI, DISCHARGE AND MEDICATION INSTRUCTIONS PROVIDED TO PT, VERBALIZED UNDERSTANDING, PT'S NEW PRESCRIPTION CALLED IN AT PT'S PREFERRED PHARMACY PER DR. ABBASI'S INSTRUCTIONS, BELONGINGS ACCOUNTED FOR, ASSISTED PT TO HOSPITAL LOBBY, PER PT HE WILL CALL [facility].
[2023-02-19] MEDS ORDERED: METRONIDAZOLE 250 MG TABLET PO SCH (18:00)
== END 2023-02-19 13:30 | disposition home or self-care (01) | DRG 241 ==
LOC: ER 17:03 → MED 21:01 → TELE 23:51 → MED 02-18 11:59
PROVIDERS: ADMIT Nurse Practitioner Acute Care; ATTEND Nurse Practitioner Acute Care
DX: K29.01 Acute gastritis with bleeding (principal); K55.9 Vascular disorder of intestine, unspecified; K70.10 Alcoholic hepatitis without ascites; K76.0 Fatty (change of) liver, not elsewhere classified; F10.129 Alcohol abuse with intoxication, unspecified; F10.139 Alcohol abuse with withdrawal, unspecified; N40.1 Benign prostatic hyperplasia with lower urinary tract symptoms; R33.8 Other retention of urine; Z66 Do not resuscitate; Z20.822 Contact with and (suspected) exposure to COVID-19; K27.9 Peptic ulcer, site unspecified, unspecified as acute or chronic, without hemorrhage or perforation; K57.90 Diverticulosis of intestine, part unspecified, without perforation or abscess without bleeding; Y90.9 Presence of alcohol in blood, level not specified; R79.89 Other specified abnormal findings of blood chemistry; Z72.0 Tobacco use; K74.60 Unspecified cirrhosis of liver; I10 Essential (primary) hypertension
CPT/HCPCS: 36415; 71045-TC; 80048-TC; 80076-TC; 81001; 82272-TC; 83605-TC; 83690-TC; 83735-TC; 84100-TC; 84484-TC; 85025-TC; 85730-TC; 86850-TC; 87081-TC; 87086-TC; A4216; A4223; C9113; C9803; G0378; J0696; J2060; J2405; J3411; J3475; J3490; J7030; J7060

== ENCOUNTER 2023-06-27 16:10 | Inpatient (IN) | payer BC, MEDICAID ==
[~2023-06-27] VITALS: Ht 177.8 cm; Wt 80.0 kg
[~2023-06-27 16:10] MED LIST changes: -LORA-259 PO; +MULT-24 PO; +PANT40TA2 PO; -PANT40TA49 PO; +THIA100T74 PO
[2023-06-27] MEDS ORDERED: PANTOPRAZOLE 40 MG VIAL ONE (16:45)
[2023-06-27] MEDS ORDERED: THIA100T74 PO (16:50)
[2023-06-27] MEDS ORDERED: TRAZ-182 PO (16:50)
[2023-06-27] MEDS ORDERED: PANT40TA2 PO (16:50)
[2023-06-27 16:53] LABS: BASOPHILS % (AUTO) 0.3 % (0.0-2.0); HEMATOCRIT 38 % (39-51); LYMPHOCYTES # (AUTO) 1.7 K/uL (0.8-4.8); MEAN CORPUSCULAR HEMOGLOBIN 33 PG (26.0-33.0); MEAN CORPUSCULAR HGB CONC 34 g/dl (31.0-36.0); MEAN CORPUSCULAR VOLUME 97 fL (80-96); MONOCYTES # (AUTO) 0.9 K/uL (0.1-1.30); MONOCYTES % (AUTO) 8.9 % (2.0-12.0); NEUTROPHILS # (AUTO) 7.5 K/uL (1.8-8.9); NEUTROPHILS % (AUTO) 73.8 % (43.0-81.0); PLATELET COUNT (AUTO) 125 K/uL (150-450); RED BLOOD CELL COUNT(AUTO) 3.91 MIL/uL (4.5-6.0); RED CELL DISTRIBUTION WIDTH 16.7 % (11.5-15.0); WHITE BLOOD COUNT (AUTO) 10.1 K/uL (4.3-11.0)
[2023-06-27] MEDS ORDERED: LORAZEPAM INJ 2 MG/ML VIAL IV ONE (17:00)
[2023-06-27] MEDS ORDERED: PANTOPRAZOLE 40 MG VIAL IV ONE (17:00)
[2023-06-27] MEDS ORDERED: IV NS 0.9% 1,000 ML BAG IV ONE (17:00)
[2023-06-27] MEDS ORDERED: LORAZEPAM INJ 2 MG/ML VIAL ONE (17:02)
[2023-06-27 17:08] LABS: ALANINE AMINOTRANSFERASE 32 U/L (12-78); ALBUMIN 4.4 g/dL (3.4-5.0); ALKALINE PHOSPHATASE 104 U/L (46-116); ASPARTATE AMINOTRANSFERASE 42 U/L (15-37); BILIRUBIN,DIRECT 0.6 mg/dL (0.0-0.2); BILIRUBIN,TOTAL 1.6 mg/dL (0.2-1.0); CALCIUM, SERUM 9.9 mg/dL (8.5-10.1); CARBON DIOXIDE 28 mmol/L (21-32); CHLORIDE 91 mmol/L (98-107); CREATININE 1.1 mg/dL (0.6-1.3); GLUCOSE 140 mg/dL (74-106); LIPASE 69 U/L (16-77); POTASSIUM 3.9 mmol/L (3.5-5.1); SODIUM SERUM 132 mmol/L (136-145); TOTAL PROTEIN, SERUM 7.3 g/dL (6.4-8.2); UREA NITROGEN, BLOOD 40 mg/dL (7-18)
[2023-06-27 17:10] LABS: LACTIC ACID 1.3 mmol/L (0.4-2.0)
[2023-06-27 17:13] LABS: INR 0.96 (0.91-1.10); PARTIAL THROMBOPLASTIN TIME 23.9 SEC (24.3-34.3); PROTHROMBIN TIME 10.2 SECS (9.2-11.1)
[2023-06-27] MEDS ORDERED: IOHEXOL-300 100 ML VIAL IV ONE (17:33)
[2023-06-27] MEDS ORDERED: IV NS 0.9% 250 ML IV ONE (17:33)
[2023-06-27] MEDS ORDERED: MAG HYDROX/AL HYDROX/SIMETH 30 ML UDC PO PRN (18:00)
[2023-06-27] MEDS ORDERED: MAGNESIUM HYDROXIDE 30 ML UDC PO PRN (18:00)
[2023-06-27] MEDS ORDERED: ZOLPIDEM TARTRATE 5 MG TABLET PO PRN (18:00)
[2023-06-27] MEDS ORDERED: ACETAMINOPHEN 325 MG TABLET PO PRN (18:00)
[2023-06-27] MEDS ORDERED: Z GUARD REMEDY 4 OZ OINT TP PRN (18:00)
[2023-06-27] MEDS ORDERED: ONDANSETRON HCL/PF 4 MG/2 ML VIAL IVP PRN (18:00)
[2023-06-27] MEDS ORDERED: Thiamine 100 MG in IV D5W 50 ML IV SCH (18:00)
[2023-06-27 20:00] VITALS: BP 125/98; TEMP 97.8; O2SAT 98
[2023-06-27] MEDS: THIAMINE HCL 100 MG TABLET PO SCH (20:00)
[2023-06-27] MEDS: IV NS 0.9% 1,000 ML IV PRN (21:18)
[2023-06-27 21:24] LABS: HEMOGLOBIN 12.1 g/dL (13.5-17.5)
[2023-06-27] MEDS: PANTOPRAZOLE 40 MG VIAL IV SCH (21:48)
[2023-06-27] MEDS: LORAZEPAM INJ 2 MG/ML VIAL IV PRN (21:49)
[2023-06-27] MEDS: TRAZODONE 50 MG TABLET PO SCH ×2 (22:00→22:30)
[2023-06-28] VITALS: BP 126/85; TEMP 97.6; O2SAT 98
[2023-06-28 01:19] VITALS: BP 125/98; TEMP 97.8; O2SAT 98
[2023-06-28] MEDS: LORAZEPAM INJ 2 MG/ML VIAL IV PRN ×3 (03:46→15:17)
[2023-06-28 04:29] LABS: OCCULT BLOOD STOOL NEGATIVE (NEGATIVE)
[2023-06-28 06:08] LABS: BASOPHILS % (AUTO) 0.2 % (0.0-2.0); EOSINOPHILS % (AUTO) 0.4 % (0.0-6.0); HEMATOCRIT 35 % (39-51); HEMOGLOBIN 11.9 g/dL (13.5-17.5); LYMPHOCYTES # (AUTO) 2.2 K/uL (0.8-4.8); LYMPHOCYTES % (AUTO) 30.5 % (20.0-44.0); MEAN CORPUSCULAR HEMOGLOBIN 34 PG (26.0-33.0); MEAN CORPUSCULAR HGB CONC 34 g/dl (31.0-36.0); MEAN CORPUSCULAR VOLUME 98 fL (80-96); MONOCYTES # (AUTO) 0.6 K/uL (0.1-1.30); MONOCYTES % (AUTO) 7.9 % (2.0-12.0); NEUTROPHILS # (AUTO) 4.3 K/uL (1.8-8.9); PLATELET COUNT (AUTO) 92 K/uL (150-450); RED BLOOD CELL COUNT(AUTO) 3.52 MIL/uL (4.5-6.0); RED CELL DISTRIBUTION WIDTH 16.3 % (11.5-15.0); WHITE BLOOD COUNT (AUTO) 7.1 K/uL (4.3-11.0)
[2023-06-28 06:48] LABS: ALBUMIN 3.4 g/dL (3.4-5.0); BILIRUBIN,TOTAL 1.2 mg/dL (0.2-1.0); CALCIUM, SERUM 8.7 mg/dL (8.5-10.1); CREATININE 0.7 mg/dL (0.6-1.3); PHOSPHORUS 2.5 mg/dL (2.5-4.9); POTASSIUM 3.1 mmol/L (3.5-5.1); TOTAL PROTEIN, SERUM 5.8 g/dL (6.4-8.2)
[2023-06-28 07:13] VITALS: BP 136/92; TEMP 98.1; O2SAT 97
[2023-06-28 08:00] VITALS: BP 118/102; TEMP 98.1; O2SAT 98
[2023-06-28] MEDS: PANTOPRAZOLE 40 MG VIAL IV SCH (08:30)
[2023-06-28] MEDS: CHLORDIAZEPOXIDE HCL 25 MG CAPSULE PO SCH ×2 (08:38→12:21)
[2023-06-28] MEDS: THIAMINE HCL 100 MG TABLET PO SCH (08:38)
[2023-06-28] MEDS: IV NS 0.9% 1,000 ML IV PRN (08:38)
[2023-06-28] MEDS ORDERED: POTASSIUM CL. PREMIX PERIPHER. 50 ML IV SCH (10:30)
[2023-06-28 11:32] LABS: HEMOGLOBIN 12.4 g/dL (13.5-17.5)
[2023-06-28] MEDS: Potassium Chloride 10 MEQ, LIDOCAINE HCL/PF 1% 1 ML in IV D5W 50 ML IV SCH ×3 (11:48→13:49)
[2023-06-28 12:00] VITALS: BP 110/98; TEMP 98.6; O2SAT 97
[2023-06-28 13:56] LABS: ANISOCYTOSIS 1+; PLATELET ESTIMATE DECREASED
[2023-06-28 16:00] VITALS: BP 120/99; TEMP 98.4; O2SAT 97
== END 2023-06-28 17:00 | disposition left against medical advice (07) | DRG 378 ==
LOC: ER 16:23 → TELE 18:49 → MED 06-28 16:46
PROVIDERS: ADMIT Nurse Practitioner Acute Care; ATTEND Nurse Practitioner Acute Care
DX: K92.2 Gastrointestinal hemorrhage, unspecified (principal); E87.1 Hypo-osmolality and hyponatremia; K51.911 Ulcerative colitis, unspecified with rectal bleeding; F10.139 Alcohol abuse with withdrawal, unspecified; N17.9 Acute kidney failure, unspecified; E86.1 Hypovolemia; F41.9 Anxiety disorder, unspecified; Y90.9 Presence of alcohol in blood, level not specified; I10 Essential (primary) hypertension; Z79.899 Other long term (current) drug therapy; R74.01 Elevation of levels of liver transaminase levels; F17.210 Nicotine dependence, cigarettes, uncomplicated; E86.9 Volume depletion, unspecified; D50.0 Iron deficiency anemia secondary to blood loss (chronic); K74.60 Unspecified cirrhosis of liver; E87.6 Hypokalemia; N40.0 Benign prostatic hyperplasia without lower urinary tract symptoms; Z87.11 Personal history of peptic ulcer disease; Z87.19 Personal history of other diseases of the digestive system
CPT/HCPCS: 36415; 80048-TC; 80053-TC; 80076-TC; 82272-TC; 83605-TC; 83690-TC; 83735-TC; 84100-TC; 84484-TC; 85025-TC; 85027-TC; 85730-TC; A4223; C9113; G0378; J2060; J3480; J3490; J7030; J7050; J7060; Q9967

== ENCOUNTER 2023-07-02 17:09 | Emergency (ER) | payer BC ==
[~2023-07-02] VITALS: Ht 177.8 cm; Wt 79.4 kg
[~2023-07-02 17:09] MED LIST changes: -MULT-24 PO; +TRAZ-182 PO
[2023-07-02] MEDS ORDERED: MORPHINE SULFATE INJ 10 MG/ML DISP.SYRIN IV ONE (19:00)
[2023-07-02] MEDS ORDERED: ONDANSETRON HCL/PF 4 MG/2 ML VIAL IV ONE (19:00)
[2023-07-02] MEDS ORDERED: ONDANSETRON HCL/PF 4 MG/2 ML VIAL ONE (19:05)
[2023-07-02] MEDS ORDERED: MORPHINE SULFATE INJ 4 MG/ML DISP.SYRIN ONE ×2 (19:06→22:30)
[2023-07-02 19:44] LABS: BASOPHILS # (AUTO) 0.1 K/uL (0.0-0.2); BASOPHILS % (AUTO) 0.6 % (0.0-2.0); EOSINOPHILS % (AUTO) 0.3 % (0.0-6.0); HEMATOCRIT 34 % (39-51); HEMOGLOBIN 11.2 g/dL (13.5-17.5); LYMPHOCYTES # (AUTO) 2.7 K/uL (0.8-4.8); LYMPHOCYTES % (AUTO) 31.6 % (20.0-44.0); MEAN CORPUSCULAR HEMOGLOBIN 33 PG (26.0-33.0); MEAN CORPUSCULAR HGB CONC 34 g/dl (31.0-36.0); MEAN CORPUSCULAR VOLUME 99 fL (80-96); MONOCYTES # (AUTO) 1.3 K/uL (0.1-1.30); MONOCYTES % (AUTO) 15.3 % (2.0-12.0); NEUTROPHILS # (AUTO) 4.4 K/uL (1.8-8.9); NEUTROPHILS % (AUTO) 52.2 % (43.0-81.0); PLATELET COUNT (AUTO) 225 K/uL (150-450); RED BLOOD CELL COUNT(AUTO) 3.39 MIL/uL (4.5-6.0); RED CELL DISTRIBUTION WIDTH 16.4 % (11.5-15.0); WHITE BLOOD COUNT (AUTO) 8.4 K/uL (4.3-11.0)
[2023-07-02 20:09] LABS: CALCIUM, SERUM 8.6 mg/dL (8.5-10.1); CREATININE 0.8 mg/dL (0.6-1.3); POTASSIUM 3.4 mmol/L (3.5-5.1)
[2023-07-02 20:17] LABS: ALBUMIN 3.3 g/dL (3.4-5.0); BILIRUBIN,DIRECT 0.2 mg/dL (0.0-0.2); BILIRUBIN,TOTAL 0.4 mg/dL (0.2-1.0); TOTAL PROTEIN, SERUM 6.4 g/dL (6.4-8.2)
[2023-07-02 20:22] LABS: APPEARANCE,URINE CLEAR (CLEAR); BILIRUBIN,URINE NEGATIVE (NEGATIVE); BLOOD, URINE NEGATIVE Ery/uL (NEGATIVE); COLOR,URINE YELLOW (YELLOW); KETONES,URINE NEGATIVE (NEGATIVE); LEUKOCYTE ESTERASE ,URINE NEGATIVE (NEGATIVE); NITRITE, URINE NEGATIVE (NEGATIVE); PROTEIN,URINE NEGATIVE (NEGATIVE); UGLUCOSE NEGATIVE (NEGATIVE)
[2023-07-02 20:37] LABS: ADD URINE CULTURE NO; BACTERIA,URINE None seen /HPF (None Seen); MUCUS,URINE Moderate /LPF (None Seen); RBC,URINE 0-2 /HPF (0-2); SQUAMOUS EPITHELIAL CELL,UR 0-2 /HPF (None Seen); WBC,URINE 0-2 /HPF (0-3)
[2023-07-02] MEDS ORDERED: CEFAZOLIN 2 GM in IV D5W 100 ML IV ONE (21:30)
[2023-07-02 21:40] LABS: ANISOCYTOSIS 1+; BAND % (MANUAL) 1 % (0.0-5.0); LYMPHOCYTES % (MANUAL) 36 % (16-48); MONOCYTES % (MANUAL) 10 % (0-11.0); NEUTROPHILS % (MANUAL) 52 (42-76); PLATELET ESTIMATE ADEQUATE; REACTIVE LYMPHOCYTES 1 % (0-0)
[2023-07-02 21:41] LABS: ROULEAUX 1+
[2023-07-02] MEDS ORDERED: CEFTRIAXONE 1 G in IV D5W 50 ML IV ONE (22:00)
[2023-07-02] MEDS ORDERED: CEFTRIAXONE 1GM BAG (ER ONLY) 50 ML IV ONE (22:05)
[2023-07-02] MEDS ORDERED: MORPHINE SULFATE INJ 2 MG/ML DISP.SYRIN IV ONE (22:30)
[2023-07-03] MEDS ORDERED: TDAP [DIPH/PERTUSSIS/TET] 0.5 ML VIAL IM ONE ×2 (01:00→02:37)
[2023-07-03] MEDS ORDERED: LORAZEPAM INJ 2 MG/ML VIAL ONE (03:51)
[2023-07-03] MEDS ORDERED: MORPHINE SULFATE INJ 4 MG/ML DISP.SYRIN ONE (03:51)
[2023-07-03] MEDS ORDERED: MORPHINE SULFATE INJ 2 MG/ML DISP.SYRIN IV ONE (04:00)
[2023-07-03] MEDS ORDERED: LORAZEPAM INJ 2 MG/ML VIAL IV ONE (04:00)
[2023-07-03 06:44] VITALS: BP 127/88; TEMP 98.1; O2SAT 97
== END 2023-07-03 06:45 | disposition left against medical advice (07) ==
LOC: ER 17:12
DX: N50.812 Left testicular pain (principal); I10 Essential (primary) hypertension; Z98.890 Other specified postprocedural states; Z79.899 Other long term (current) drug therapy; F17.200 Nicotine dependence, unspecified, uncomplicated
CPT/HCPCS: 99285; 74176; 96365; 96375 ×2; 96376 ×2; 76870; 85025; 80048; 87040 ×2; 87086; 80076; 81001; 36415; 90471; 90715; 85007; J0690; J2270 ×4; J0696 ×2; J2405; J7060 ×2; J2060

== ENCOUNTER 2023-07-17 12:57 | Inpatient (IN) | payer BC ==
[~2023-07-17] VITALS: Ht 177.8 cm; Wt 79.4 kg
[2023-07-17 07:30] VITALS: BP 134/95; TEMP 97.7; O2SAT 97
[2023-07-17] MEDS ORDERED: ONDANSETRON HCL/PF 4 MG/2 ML VIAL IVP ONE (13:30)
[2023-07-17] MEDS ORDERED: IV NS 0.9% 1,000 ML BAG IV ONE (13:30)
[2023-07-17] MEDS ORDERED: LORAZEPAM INJ 2 MG/ML VIAL IV ONE ×3 (13:30→16:00)
[2023-07-17] MEDS ORDERED: FAMOTIDINE/PF INJ 20 MG/2 ML VIAL IV ONE ×2 (13:30→14:04)
[2023-07-17] MEDS ORDERED: ONDANSETRON HCL/PF 4 MG/2 ML VIAL ONE (14:03)
[2023-07-17] MEDS ORDERED: LORAZEPAM INJ 2 MG/ML VIAL ONE ×3 (14:05→16:10)
[2023-07-17 14:25] LABS: BASOPHILS % (AUTO) 0.2 % (0.0-2.0); HEMATOCRIT 38 % (39-51); HEMOGLOBIN 12.6 g/dL (13.5-17.5); LYMPHOCYTES # (AUTO) 0.6 K/uL (0.8-4.8); LYMPHOCYTES % (AUTO) 5.6 % (20.0-44.0); MEAN CORPUSCULAR HEMOGLOBIN 33 PG (26.0-33.0); MEAN CORPUSCULAR HGB CONC 33 g/dl (31.0-36.0); MEAN CORPUSCULAR VOLUME 101 fL (80-96); MONOCYTES # (AUTO) 0.6 K/uL (0.1-1.30); MONOCYTES % (AUTO) 5.5 % (2.0-12.0); NEUTROPHILS # (AUTO) 9.1 K/uL (1.8-8.9); NEUTROPHILS % (AUTO) 88.7 % (43.0-81.0); PLATELET COUNT (AUTO) 300 K/uL (150-450); RED BLOOD CELL COUNT(AUTO) 3.78 MIL/uL (4.5-6.0); RED CELL DISTRIBUTION WIDTH 17.4 % (11.5-15.0); WHITE BLOOD COUNT (AUTO) 10.3 K/uL (4.3-11.0)
[2023-07-17 14:35] LABS: CALCIUM, SERUM 9.2 mg/dL (8.5-10.1); CARBON DIOXIDE 16 mmol/L (21-32); CHLORIDE 94 mmol/L (98-107); GLUCOSE 160 mg/dL (74-106); POTASSIUM 4.4 mmol/L (3.5-5.1); SODIUM SERUM 137 mmol/L (136-145); UREA NITROGEN, BLOOD 23 mg/dL (7-18)
[2023-07-17 14:44] LABS: ALANINE AMINOTRANSFERASE 27 U/L (12-78); ALKALINE PHOSPHATASE 88 U/L (46-116); ASPARTATE AMINOTRANSFERASE 28 U/L (15-37); BILIRUBIN,DIRECT 0.3 mg/dL (0.0-0.2); BILIRUBIN,TOTAL 1.3 mg/dL (0.2-1.0); LIPASE 20 U/L (16-77); TOTAL PROTEIN, SERUM 7.1 g/dL (6.4-8.2)
[2023-07-17] MEDS ORDERED: IV D5/ 0.9% NACL 1,000 ML IV ONE (16:00)
[2023-07-17] MEDS ORDERED: Thiamine 100 MG in IV D5W 50 ML IV SCH (16:00)
[2023-07-17] MEDS ORDERED: PANTOPRAZOLE 40 MG VIAL IV ONE (16:00)
[2023-07-17] MEDS ORDERED: PANTOPRAZOLE 40 MG VIAL ONE (16:10)
[2023-07-17 16:21] LABS: MAGNESIUM 1.7 mg/dL (1.8-2.4); PHOSPHORUS 4.3 mg/dL (2.5-4.9)
[2023-07-17] MEDS ORDERED: ERGO500093 PO (16:23)
[2023-07-17] MEDS ORDERED: TAMS-12 PO (16:23)
[2023-07-17 16:33] LABS: LACTIC ACID 5.2 mmol/L (0.4-2.0)
[2023-07-17 16:49] LABS: SITE, VBG Other; VBG BASE EXCESS -6.1 mmol/L (-3-3); VBG COHb 2.3 %; VBG MetHb 0.5 %; VBG OXYGEN SATURATION 89.5 %; VBG PCO2 28.4 mmHg (40-52); VBG PH 7.403 (7.31-7.41); VBG PO2 60.2 mmHg (30-50); VBG TOTAL HEMOGLOBIN 12.8 G/dL (13.5-18.0); VENT MODE, VBG RA 21%
[2023-07-17] MEDS ORDERED: TRAZODONE 50 MG TABLET PO PRN (18:00)
[2023-07-17] MEDS ORDERED: ONDANSETRON HCL/PF 4 MG/2 ML VIAL IVP PRN (18:00)
[2023-07-17] MEDS ORDERED: MAG HYDROX/AL HYDROX/SIMETH 30 ML UDC PO PRN (18:00)
[2023-07-17 19:12] LABS: ALBUMIN 3.5 g/dL (3.4-5.0); BILIRUBIN,TOTAL 1.2 mg/dL (0.2-1.0); CALCIUM, SERUM 8.5 mg/dL (8.5-10.1); CREATININE 0.9 mg/dL (0.6-1.3); POTASSIUM 4.8 mmol/L (3.5-5.1); TOTAL PROTEIN, SERUM 6.4 g/dL (6.4-8.2)
[2023-07-17 19:30] VITALS: BP 134/95; TEMP 97.7; O2SAT 97
[2023-07-17] MEDS: CHLORDIAZEPOXIDE HCL 25 MG CAPSULE PO SCH (19:45)
[2023-07-17] MEDS: IV D5/0.45 NACL 1,000 ML IV PRN (20:08)
[2023-07-17 20:40] VITALS: BP 134/95; TEMP 97.7; O2SAT 97
[2023-07-17] MEDS: ENOXAPARIN SODIUM 40 MG/0.4 ML DISP.SYRIN SQ SCH (21:05)
[2023-07-17] MEDS: TAMSULOSIN 0.4 MG CAP.SR.24H PO SCH (21:05)
[2023-07-17] MEDS: MORPHINE SULFATE INJ 2 MG/ML DISP.SYRIN IV PRN (21:07)
[2023-07-17] MEDS: LORAZEPAM INJ 2 MG/ML VIAL IV PRN (22:39)
[2023-07-18 00:49] LABS: CALCIUM, SERUM 8.5 mg/dL (8.5-10.1); CREATININE 0.9 mg/dL (0.6-1.3); POTASSIUM 3.8 mmol/L (3.5-5.1)
[2023-07-18 00:52] LABS: ALBUMIN 3.3 g/dL (3.4-5.0); BILIRUBIN,TOTAL 1.1 mg/dL (0.2-1.0); TOTAL PROTEIN, SERUM 5.9 g/dL (6.4-8.2)
[2023-07-18] MEDS: MORPHINE SULFATE INJ 2 MG/ML DISP.SYRIN IV PRN ×5 (03:59→21:47)
[2023-07-18] MEDS: IV D5/0.45 NACL 1,000 ML IV PRN (04:08)
[2023-07-18 05:40] LABS: BASOPHILS % (AUTO) 0.3 % (0.0-2.0); EOSINOPHILS % (AUTO) 0.1 % (0.0-6.0); HEMATOCRIT 30 % (39-51); HEMOGLOBIN 10.2 g/dL (13.5-17.5); LYMPHOCYTES # (AUTO) 1.4 K/uL (0.8-4.8); LYMPHOCYTES % (AUTO) 28.4 % (20.0-44.0); MEAN CORPUSCULAR HEMOGLOBIN 33 PG (26.0-33.0); MEAN CORPUSCULAR HGB CONC 34 g/dl (31.0-36.0); MEAN CORPUSCULAR VOLUME 100 fL (80-96); MONOCYTES # (AUTO) 0.4 K/uL (0.1-1.30); MONOCYTES % (AUTO) 8.6 % (2.0-12.0); NEUTROPHILS # (AUTO) 3.1 K/uL (1.8-8.9); NEUTROPHILS % (AUTO) 62.6 % (43.0-81.0); PLATELET COUNT (AUTO) 160 K/uL (150-450); RED BLOOD CELL COUNT(AUTO) 3.04 MIL/uL (4.5-6.0); RED CELL DISTRIBUTION WIDTH 17.2 % (11.5-15.0); WHITE BLOOD COUNT (AUTO) 4.9 K/uL (4.3-11.0)
[2023-07-18 06:06] LABS: ALBUMIN 3.1 g/dL (3.4-5.0); BILIRUBIN,TOTAL 1.1 mg/dL (0.2-1.0); CALCIUM, SERUM 8.4 mg/dL (8.5-10.1); CREATININE 0.7 mg/dL (0.6-1.3); MAGNESIUM 1.7 mg/dL (1.8-2.4); PHOSPHORUS 1.3 mg/dL (2.5-4.9); POTASSIUM 3.2 mmol/L (3.5-5.1); TOTAL PROTEIN, SERUM 5.6 g/dL (6.4-8.2)
[2023-07-18 08:00] VITALS: BP 137/89; TEMP 98.1; O2SAT 98
[2023-07-18] MEDS: THIAMINE HCL 100 MG TABLET PO SCH (08:39)
[2023-07-18] MEDS: CHLORDIAZEPOXIDE HCL 25 MG CAPSULE PO SCH ×3 (08:39→17:30)
[2023-07-18] MEDS: PANTOPRAZOLE 40 MG VIAL IV SCH ×2 (08:39→17:30)
[2023-07-18] MEDS ORDERED: POTASSIUM CHLORIDE 20 MEQ TAB.PRT.SR PO ONE ×2 (11:00→17:00)
[2023-07-18 12:00] VITALS: BP 133/90; TEMP 98.7; O2SAT 98
[2023-07-18 12:07] LABS: CALCIUM, SERUM 8.4 mg/dL (8.5-10.1); CREATININE 0.8 mg/dL (0.6-1.3); POTASSIUM 3.1 mmol/L (3.5-5.1)
[2023-07-18 12:13] LABS: TOTAL PROTEIN, SERUM 5.5 g/dL (6.4-8.2)
[2023-07-18] MEDS ORDERED: MAGNESIUM OXIDE 400 MG TABLET PO ONE (13:00)
[2023-07-18 16:00] VITALS: BP 139/92; TEMP 98.8; O2SAT 98
[2023-07-18] MEDS ORDERED: K PHOS NEUTRAL 250 MG TABLET PO ONE (17:00)
[2023-07-18 19:00] LABS: CALCIUM, SERUM 8.8 mg/dL (8.5-10.1); CREATININE 0.7 mg/dL (0.6-1.3); POTASSIUM 3.7 mmol/L (3.5-5.1)
[2023-07-18 19:24] LABS: ALBUMIN 3.2 g/dL (3.4-5.0); TOTAL PROTEIN, SERUM 5.8 g/dL (6.4-8.2)
[2023-07-18 20:00] VITALS: BP_SYST 115; BP_SYST 139; BP_DIAS 68; BP_DIAS 92; TEMP 98.6; TEMP 98.8; O2SAT 98
[2023-07-18] MEDS: ENOXAPARIN SODIUM 40 MG/0.4 ML DISP.SYRIN SQ SCH (21:32)
[2023-07-18] MEDS: TAMSULOSIN 0.4 MG CAP.SR.24H PO SCH (22:00)
[2023-07-19] VITALS: BP 110/65; TEMP 98.6; O2SAT 98
[2023-07-19 00:55] LABS: ALBUMIN 3.8 g/dL (3.4-5.0); CALCIUM, SERUM 9.4 mg/dL (8.5-10.1); CREATININE 0.8 mg/dL (0.6-1.3); POTASSIUM 3.5 mmol/L (3.5-5.1); TOTAL PROTEIN, SERUM 6.8 g/dL (6.4-8.2)
[2023-07-19] MEDS: MORPHINE SULFATE INJ 2 MG/ML DISP.SYRIN IV PRN (02:37)
[2023-07-19 04:00] VITALS: BP 105/60; TEMP 97.5; O2SAT 99
[2023-07-19 07:13] LABS: ALBUMIN 3.6 g/dL (3.4-5.0); BILIRUBIN,TOTAL 0.9 mg/dL (0.2-1.0); CALCIUM, SERUM 9.3 mg/dL (8.5-10.1); CREATININE 0.7 mg/dL (0.6-1.3); MAGNESIUM 1.4 mg/dL (1.8-2.4); PHOSPHORUS 1.7 mg/dL (2.5-4.9); POTASSIUM 3.2 mmol/L (3.5-5.1); TOTAL PROTEIN, SERUM 6.3 g/dL (6.4-8.2)
[2023-07-19 08:00] VITALS: BP 128/82; TEMP 97.5; O2SAT 96
[2023-07-19] MEDS: CHLORDIAZEPOXIDE HCL 25 MG CAPSULE PO SCH ×3 (08:35→18:25)
[2023-07-19] MEDS: PANTOPRAZOLE 40 MG VIAL IV SCH (08:35)
[2023-07-19] MEDS: THIAMINE HCL 100 MG TABLET PO SCH (08:36)
[2023-07-19 11:25] LABS: THYROID STIMULATING HORMONE 2.803 uIU/mL (0.358-3.74)
[2023-07-19] MEDS ORDERED: POTASSIUM CHLORIDE 20 MEQ TAB.PRT.SR PO ONE (11:30)
[2023-07-19 12:00] VITALS: BP 130/76; TEMP 97.8; O2SAT 98
[2023-07-19] MEDS ORDERED: MAGNESIUM OXIDE 400 MG TABLET PO ONE (12:30)
[2023-07-19] MEDS: LORAZEPAM INJ 2 MG/ML VIAL IV PRN (12:35)
[2023-07-19 12:56] LABS: CALCIUM, SERUM 9.4 mg/dL (8.5-10.1); CREATININE 0.8 mg/dL (0.6-1.3); POTASSIUM 3.6 mmol/L (3.5-5.1)
[2023-07-19 13:01] LABS: ALBUMIN 3.9 g/dL (3.4-5.0); BILIRUBIN,TOTAL 1.2 mg/dL (0.2-1.0); TOTAL PROTEIN, SERUM 6.8 g/dL (6.4-8.2)
[2023-07-19] MEDS ORDERED: HALOPERIDOL LACTATE INJ 5 MG/ML VIAL IM PRN (14:00)
[2023-07-19] MEDS ORDERED: K PHOS NEUTRAL 250 MG TABLET PO ONE (15:30)
[2023-07-19 16:00] VITALS: BP 126/63; TEMP 97.9; O2SAT 99
[2023-07-19] MEDS ORDERED: HALOPERIDOL 5 MG TABLET PO PRN (17:00)
[2023-07-19] MEDS: PANTOPRAZOLE 40 MG TABLET.DR PO SCH (18:17)
[2023-07-19] MEDS: ESCITALOPRAM OXALATE (10 MG) 10 MG TABLET PO SCH (18:17)
[2023-07-19] MEDS ORDERED: CHLORDIAZEPOXIDE HCL 25 MG CAPSULE PO ONE (18:30)
[2023-07-19 18:59] LABS: ALBUMIN 3.2 g/dL (3.4-5.0); CREATININE 0.7 mg/dL (0.6-1.3); POTASSIUM 3.5 mmol/L (3.5-5.1); TOTAL PROTEIN, SERUM 5.6 g/dL (6.4-8.2)
[2023-07-19] MEDS: ENOXAPARIN SODIUM 40 MG/0.4 ML DISP.SYRIN SQ SCH (21:55)
[2023-07-19] MEDS: TAMSULOSIN 0.4 MG CAP.SR.24H PO SCH (22:00)
[2023-07-20] MEDS: MORPHINE SULFATE INJ 2 MG/ML DISP.SYRIN IV PRN ×3 (02:43→21:24)
[2023-07-20 04:00] VITALS: BP 125/72; TEMP 98; O2SAT 98
[2023-07-20 06:06] LABS: FOLIC ACID 6.2 ng/mL (>3.0)
[2023-07-20 07:39] LABS: MAGNESIUM 1.7 mg/dL (1.8-2.4); PHOSPHORUS 3.4 mg/dL (2.5-4.9)
[2023-07-20 07:58] VITALS: BP 125/84; TEMP 97.9; O2SAT 98
[2023-07-20 08:00] VITALS: BP 125/84; TEMP 97.8; TEMP 97.9; O2SAT 98
[2023-07-20] MEDS: THIAMINE HCL 100 MG TABLET PO SCH (08:16)
[2023-07-20] MEDS: ESCITALOPRAM OXALATE (10 MG) 10 MG TABLET PO SCH (08:16)
[2023-07-20] MEDS: PANTOPRAZOLE 40 MG TABLET.DR PO SCH ×2 (08:16→17:49)
[2023-07-20] MEDS: FOLIC ACID 1 MG TABLET PO SCH (08:16)
[2023-07-20] MEDS: CHLORDIAZEPOXIDE HCL 25 MG CAPSULE PO SCH ×3 (08:16→17:49)
[2023-07-20] MEDS ORDERED: MAGNESIUM OXIDE 400 MG TABLET PO ONE (10:00)
[2023-07-20] MEDS: ACETAMINOPHEN 325 MG TABLET PO PRN (14:28)
[2023-07-20 16:00] VITALS: BP 109/84; TEMP 98.8; O2SAT 98
[2023-07-20 20:15] VITALS: BP 115/85; TEMP 97.9; O2SAT 97
[2023-07-20] MEDS: ENOXAPARIN SODIUM 40 MG/0.4 ML DISP.SYRIN SQ SCH (21:06)
[2023-07-20] MEDS: TAMSULOSIN 0.4 MG CAP.SR.24H PO SCH (21:07)
[2023-07-21] MEDS: ACETAMINOPHEN 325 MG TABLET PO PRN (00:47)
[2023-07-21] MEDS: MORPHINE SULFATE INJ 2 MG/ML DISP.SYRIN IV PRN ×2 (02:02→08:47)
[2023-07-21 04:40] VITALS: BP 120/89; TEMP 97.9; O2SAT 98
[2023-07-21 08:00] VITALS: BP 120/85; TEMP 97.5; O2SAT 98
[2023-07-21] MEDS: NICOTINE PATCH (21MG) 21 MG PATCH.TD24 TD SCH (08:47)
[2023-07-21] MEDS: ESCITALOPRAM OXALATE (10 MG) 10 MG TABLET PO SCH (08:48)
[2023-07-21] MEDS: THIAMINE HCL 100 MG TABLET PO SCH (08:48)
[2023-07-21] MEDS: CHLORDIAZEPOXIDE HCL 25 MG CAPSULE PO SCH ×3 (08:48→17:44)
[2023-07-21] MEDS: FOLIC ACID 1 MG TABLET PO SCH (08:48)
[2023-07-21] MEDS: PANTOPRAZOLE 40 MG TABLET.DR PO SCH ×2 (08:48→17:44)
[2023-07-21] MEDS: ENOXAPARIN SODIUM 40 MG/0.4 ML DISP.SYRIN SQ SCH (08:50)
[2023-07-21] MEDS ORDERED: ESCI10TA PO (08:51)
[2023-07-21] MEDS ORDERED: MAGNESIUM OXIDE 400 MG TABLET PO ONE ×2 (09:30)
[2023-07-21] MEDS: DOCUSATE SODIUM 100 MG CAPSULE PO SCH ×2 (15:47→17:44)
[2023-07-21 16:00] VITALS: BP 106/81; TEMP 97.1; O2SAT 98
[2023-07-21 20:00] VITALS: BP 111/80; TEMP 98.4; O2SAT 98
[2023-07-21] MEDS: HYDROCODONE/APAP 5/325MG TABLET PO PRN (22:21)
[2023-07-21] MEDS: TAMSULOSIN 0.4 MG CAP.SR.24H PO SCH (22:21)
[2023-07-22 05:03] VITALS: BP_SYST 106; BP_SYST 117; BP_DIAS 73; BP_DIAS 91; TEMP 97.8; TEMP 98.4; O2SAT 97; O2SAT 98
[2023-07-22] MEDS: HYDROCODONE/APAP 5/325MG TABLET PO PRN (07:43)
[2023-07-22 08:00] VITALS: BP 132/86; TEMP 97.9; O2SAT 98
[2023-07-22 08:01] LABS: CALCIUM, SERUM 8.5 mg/dL (8.5-10.1); CREATININE 0.8 mg/dL (0.6-1.3); MAGNESIUM 1.7 mg/dL (1.8-2.4); POTASSIUM 3.5 mmol/L (3.5-5.1)
[2023-07-22] MEDS: ESCITALOPRAM OXALATE (10 MG) 10 MG TABLET PO SCH (08:15)
[2023-07-22] MEDS: THIAMINE HCL 100 MG TABLET PO SCH (08:15)
[2023-07-22] MEDS: FOLIC ACID 1 MG TABLET PO SCH (08:15)
[2023-07-22] MEDS: NICOTINE PATCH (21MG) 21 MG PATCH.TD24 TD SCH (08:15)
[2023-07-22] MEDS: DOCUSATE SODIUM 100 MG CAPSULE PO SCH (08:15)
[2023-07-22] MEDS: PANTOPRAZOLE 40 MG TABLET.DR PO SCH (08:15)
[2023-07-22] MEDS ORDERED: HYDR-3972 PO (09:40)
[2023-07-22] MEDS: ACETAMINOPHEN 325 MG TABLET PO PRN (09:59)
== END 2023-07-22 10:45 | disposition home or self-care (01) | DRG 923 ==
LOC: ER 12:59 → TELE 18:10 → TELE-TD 22:02 → TELE1 07-19 09:52 → MEDSG1 07-19 12:33
PROVIDERS: ADMIT Internal Medicine; ATTEND Internal Medicine
DX: T73.0XXA Starvation, initial encounter (principal); F10.159 Alcohol abuse with alcohol-induced psychotic disorder, unspecified; E87.29 Other acidosis; G93.40 Encephalopathy, unspecified; F10.131 Alcohol abuse with withdrawal delirium; F10.129 Alcohol abuse with intoxication, unspecified; E86.0 Dehydration; N40.0 Benign prostatic hyperplasia without lower urinary tract symptoms; E88.89 Other specified metabolic disorders; Y90.3 Blood alcohol level of 60-79 mg/100 ml; X58.XXXA Exposure to other specified factors, initial encounter; Z79.899 Other long term (current) drug therapy; D53.9 Nutritional anemia, unspecified; E80.6 Other disorders of bilirubin metabolism; F41.9 Anxiety disorder, unspecified; Z87.19 Personal history of other diseases of the digestive system; Z87.11 Personal history of peptic ulcer disease; F17.200 Nicotine dependence, unspecified, uncomplicated; I10 Essential (primary) hypertension; S05.12XA Contusion of eyeball and orbital tissues, left eye, initial encounter; W19.XXXA Unspecified fall, initial encounter; Y92.002 Bathroom of unspecified non-institutional (private) residence as the place of occurrence of the external cause; F07.81 Postconcussional syndrome; S31.010D Laceration without foreign body of lower back and pelvis without penetration into retroperitoneum, subsequent encounter; Y93.39 Activity, other involving climbing, rappelling and jumping off
CPT/HCPCS: 36415; 70450-TC; 70486-TC; 71045-TC; 80048-TC; 80053-TC; 80076-TC; 82140-TC; 82607-TC; 82803-TC; 82962-TC; 83605-TC; 83690-TC; 83735-TC; 83921; 84100-TC; 84425; 84443-TC; 84484-TC; 85025-TC; 94799-TC; 97112-TC; 97116-TC; A4223; A6403; C9113; G0378; G0480; J1630; J1650; J2060; J2270; J2405; J3411; J3490; J7030; J7042; J7050; J7060

== ENCOUNTER 2023-09-25 17:59 | Emergency (ER) | payer BC ==
[~2023-09-25] VITALS: Ht 177.8 cm; Wt 77.1 kg
[~2023-09-25 17:59] MED LIST changes: +ERGO500093 PO; +ESCI10TA PO; +HYDR-3972 PO; +TAMS-12 PO
[2023-09-25] MEDS ORDERED: LORAZEPAM INJ 2 MG/ML VIAL ONE (21:12)
[2023-09-25] MEDS ORDERED: ONDANSETRON HCL/PF 4 MG/2 ML VIAL ONE (21:13)
[2023-09-25] MEDS ORDERED: IV NS 0.9% 1,000 ML BAG IV ONE (21:30)
[2023-09-25] MEDS ORDERED: LORAZEPAM INJ 2 MG/ML VIAL IV ONE (21:30)
[2023-09-25 21:34] LABS: BASOPHILS % (AUTO) 0.2 % (0.0-2.0); HEMATOCRIT 38 % (39-51); HEMOGLOBIN 12.8 g/dL (13.5-17.5); LYMPHOCYTES # (AUTO) 1.6 K/uL (0.8-4.8); LYMPHOCYTES % (AUTO) 25.1 % (20.0-44.0); MEAN CORPUSCULAR HEMOGLOBIN 34 PG (26.0-33.0); MEAN CORPUSCULAR HGB CONC 34 g/dl (31.0-36.0); MEAN CORPUSCULAR VOLUME 100 fL (80-96); MONOCYTES # (AUTO) 0.9 K/uL (0.1-1.30); MONOCYTES % (AUTO) 13.2 % (2.0-12.0); NEUTROPHILS % (AUTO) 61.5 % (43.0-81.0); PLATELET COUNT (AUTO) 132 K/uL (150-450); RED BLOOD CELL COUNT(AUTO) 3.81 MIL/uL (4.5-6.0); RED CELL DISTRIBUTION WIDTH 15.5 % (11.5-15.0); WHITE BLOOD COUNT (AUTO) 6.5 K/uL (4.3-11.0)
[2023-09-25 21:47] LABS: ALBUMIN 4.1 g/dL (3.4-5.0); BILIRUBIN,DIRECT 0.4 mg/dL (0.0-0.2); BILIRUBIN,TOTAL 1.4 mg/dL (0.2-1.0); CREATININE 0.7 mg/dL (0.6-1.3); POTASSIUM 3.6 mmol/L (3.5-5.1); TOTAL PROTEIN, SERUM 6.9 g/dL (6.4-8.2)
[2023-09-25] MEDS ORDERED: NS 0.9% IV ONE (22:30)
[2023-09-25] MEDS ORDERED: PHENOBARBITAL SODIUM IV ONE (22:30)
[2023-09-25] MEDS ORDERED: PHENOBARBITAL SODIUM 130 MG/ML VIAL ONE ×2 (22:32→22:57)
[2023-09-25] MEDS ORDERED: PHENOBARBITAL SODIUM 780 MG in IV NS 0.9% 100 ML IV ONE (23:30)
[2023-09-26 05:32] VITALS: BP 121/89; TEMP 98; O2SAT 98
== END 2023-09-26 05:45 | disposition home or self-care (01) ==
LOC: ER 20:12
DX: F10.239 Alcohol dependence with withdrawal, unspecified (principal); I10 Essential (primary) hypertension; Z79.899 Other long term (current) drug therapy; Z98.890 Other specified postprocedural states; Y90.9 Presence of alcohol in blood, level not specified
CPT/HCPCS: 99284; 96365; 96361; 96375; 93005; 85025; 80048; 83690; 80076; 83735; 36415; 84484; J2560 ×3; J2060; J2405; J7060; J7030 ×2; A4223 ×2

== ENCOUNTER 2024-05-09 10:01 | Emergency (ER) | payer BC ==
[~2024-05-09] VITALS: Ht 177.8 cm; Wt 77.1 kg
[2024-05-09] MEDS ORDERED: TRANEXAMIC ACID 1,000 MG/10 ML VIAL ONE (11:37)
[2024-05-09] MEDS: TRANEXAMIC ACID 1,000 MG/10 ML VIAL IR ONE (11:38)
[2024-05-09 12:05] VITALS: BP 137/72; TEMP 98; O2SAT 99
== END 2024-05-09 12:05 | disposition home or self-care (01) ==
LOC: ER 10:07
DX: K14.8 Other diseases of tongue (principal); I10 Essential (primary) hypertension; F17.200 Nicotine dependence, unspecified, uncomplicated; Z98.890 Other specified postprocedural states; Z79.891 Long term (current) use of opiate analgesic; Z79.899 Other long term (current) drug therapy; Z60.2 Problems related to living alone

== ENCOUNTER 2024-05-14 05:35 | Emergency (ER) | payer BC ==
[~2024-05-14] VITALS: Ht 177.8 cm; Wt 79.4 kg
[2024-05-14] MEDS ORDERED: TRANEXAMIC ACID 1,000 MG/10 ML VIAL ONE ×2 (06:20→08:06)
[2024-05-14] MEDS: TRANEXAMIC ACID 1,000 MG/10 ML VIAL TOP ONE (06:25)
[2024-05-14 06:53] LABS: BASOPHILS % (AUTO) 0.3 % (0.0-2.0); EOSINOPHILS # (AUTO) 0.1 K/uL (0.0-0.7); HEMATOCRIT 28 % (39-51); HEMOGLOBIN 9.6 g/dL (13.5-17.5); INR 0.99 (0.91-1.10); LYMPHOCYTES # (AUTO) 2.1 K/uL (0.8-4.8); LYMPHOCYTES % (AUTO) 33.7 % (20.0-44.0); MEAN CORPUSCULAR HEMOGLOBIN 34 PG (26.0-33.0); MEAN CORPUSCULAR HGB CONC 34 g/dl (31.0-36.0); MEAN CORPUSCULAR VOLUME 99 fL (80-96); MONOCYTES # (AUTO) 0.5 K/uL (0.1-1.30); MONOCYTES % (AUTO) 7.7 % (2.0-12.0); NEUTROPHILS # (AUTO) 3.6 K/uL (1.8-8.9); NEUTROPHILS % (AUTO) 57.3 % (43.0-81.0); PARTIAL THROMBOPLASTIN TIME 25.5 SEC (24.3-34.3); PLATELET COUNT (AUTO) 210 K/uL (150-450); PROTHROMBIN TIME 10.5 SECS (9.2-11.1); RED BLOOD CELL COUNT(AUTO) 2.85 MIL/uL (4.5-6.0); RED CELL DISTRIBUTION WIDTH 13.2 % (11.5-15.0); WHITE BLOOD COUNT (AUTO) 6.2 K/uL (4.3-11.0)
[2024-05-14 07:09] LABS: CALCIUM, SERUM 8.2 mg/dL (8.5-10.1); CREATININE 0.7 mg/dL (0.6-1.3); POTASSIUM 3.7 mmol/L (3.5-5.1)
[2024-05-14] MEDS: TRANEXAMIC ACID 1,000 MG/10 ML VIAL IR ONE (08:10)
[2024-05-14] MEDS ORDERED: OXYM15MI4 NS (09:03)
[2024-05-14 09:12] VITALS: BP 123/81; TEMP 98; O2SAT 98
== END 2024-05-14 09:12 | disposition home or self-care (01) ==
LOC: ER 05:37
DX: K14.8 Other diseases of tongue (principal); D64.9 Anemia, unspecified; I10 Essential (primary) hypertension; F17.210 Nicotine dependence, cigarettes, uncomplicated; Z60.2 Problems related to living alone; Z98.890 Other specified postprocedural states; Z79.899 Other long term (current) drug therapy
CPT/HCPCS: 36415; 80048-TC; 85025-TC; 85730-TC; 86850-TC

== ENCOUNTER 2025-02-10 07:19 | Emergency (ER) | payer BC ==
[~2025-02-10] VITALS: Ht 177.8 cm; Wt 78.0 kg
[~2025-02-10 07:19] MED LIST changes: +OXYM15MI4 NS
[2025-02-10] MEDS ORDERED: ONDANSETRON HCL/PF 4 MG/2 ML VIAL ONE (07:46)
[2025-02-10] MEDS ORDERED: FAMOTIDINE/PF INJ 20 MG/2 ML VIAL IV ONE (07:47)
[2025-02-10] MEDS ORDERED: LORAZEPAM INJ 2 MG/ML VIAL ONE (07:47)
[2025-02-10] MEDS: IV NS 0.9% 1,000 ML BAG IV ONE (08:02)
[2025-02-10] MEDS: FAMOTIDINE/PF INJ 20 MG/2 ML VIAL IV ONE (08:02)
[2025-02-10] MEDS: LORAZEPAM INJ 2 MG/ML VIAL IV ONE (08:02)
[2025-02-10 08:03] LABS: BASOPHILS # (AUTO) 0.1 K/uL (0.0-0.2); BASOPHILS % (AUTO) 0.6 % (0.0-2.0); HEMATOCRIT 42 % (39-51); HEMOGLOBIN 14.1 g/dL (13.5-17.5); LYMPHOCYTES # (AUTO) 2.6 K/uL (0.8-4.8); LYMPHOCYTES % (AUTO) 24.3 % (20.0-44.0); MEAN CORPUSCULAR HEMOGLOBIN 34 PG (26.0-33.0); MEAN CORPUSCULAR HGB CONC 34 g/dl (31.0-36.0); MEAN CORPUSCULAR VOLUME 100 fL (80-96); MONOCYTES # (AUTO) 0.6 K/uL (0.1-1.30); MONOCYTES % (AUTO) 5.4 % (2.0-12.0); NEUTROPHILS # (AUTO) 7.5 K/uL (1.8-8.9); NEUTROPHILS % (AUTO) 69.7 % (43.0-81.0); PLATELET COUNT (AUTO) 230 K/uL (150-450); RED BLOOD CELL COUNT(AUTO) 4.17 MIL/uL (4.5-6.0); RED CELL DISTRIBUTION WIDTH 15.4 % (11.5-15.0); WHITE BLOOD COUNT (AUTO) 10.7 K/uL (4.3-11.0)
[2025-02-10] MEDS: ONDANSETRON HCL/PF 4 MG/2 ML VIAL IVP ONE (08:03)
[2025-02-10 08:09] LABS: CALCIUM, SERUM 9.3 mg/dL (8.5-10.1); POTASSIUM 4.1 mmol/L (3.5-5.1)
[2025-02-10 08:15] LABS: ALBUMIN 4.3 g/dL (3.4-5.0); BILIRUBIN,DIRECT 0.2 mg/dL (0.0-0.2); BILIRUBIN,TOTAL 0.9 mg/dL (0.2-1.0); TOTAL PROTEIN, SERUM 7.5 g/dL (6.4-8.2)
[2025-02-10] MEDS ORDERED: ONDA4TAB11 PO (09:20)
[2025-02-10 09:39] VITALS: BP 143/74; TEMP 97.9; O2SAT 95
== END 2025-02-10 09:45 | disposition home or self-care (01) ==
LOC: ER 07:24
DX: R10.13 Epigastric pain (principal); R11.2 Nausea with vomiting, unspecified; R19.7 Diarrhea, unspecified; F10.10 Alcohol abuse, uncomplicated; F17.200 Nicotine dependence, unspecified, uncomplicated; E86.0 Dehydration; I10 Essential (primary) hypertension; Z79.899 Other long term (current) drug therapy; Z87.19 Personal history of other diseases of the digestive system; Y90.9 Presence of alcohol in blood, level not specified
CPT/HCPCS: 99285; 74176; 96374; 96375; 96361; 93005; 85025; 80048; 83690; 80076; 36415; J2060; J1308; J2405; J7030

== ENCOUNTER 2025-03-04 10:40 | Emergency (ER) | payer BC ==
[~2025-03-04] VITALS: Ht 177.8 cm; Wt 79.4 kg
[~2025-03-04 10:40] MED LIST changes: +ONDA4TAB11 PO
[2025-03-04] MEDS: IV NS 0.9% 1,000 ML BAG IV ONE (11:00)
[2025-03-04 11:04] LABS: BASOPHILS % (AUTO) 0.2 % (0.0-2.0); HEMATOCRIT 41 % (39-51); HEMOGLOBIN 13.6 g/dL (13.5-17.5); LYMPHOCYTES % (AUTO) 9.1 % (20.0-44.0); MEAN CORPUSCULAR HEMOGLOBIN 34 PG (26.0-33.0); MEAN CORPUSCULAR HGB CONC 33 g/dl (31.0-36.0); MEAN CORPUSCULAR VOLUME 103 fL (80-96); MONOCYTES # (AUTO) 0.6 K/uL (0.1-1.30); NEUTROPHILS % (AUTO) 84.7 % (43.0-81.0); PLATELET COUNT (AUTO) 309 K/uL (150-450); RED BLOOD CELL COUNT(AUTO) 3.99 MIL/uL (4.5-6.0); RED CELL DISTRIBUTION WIDTH 16.8 % (11.5-15.0); WHITE BLOOD COUNT (AUTO) 10.7 K/uL (4.3-11.0)
[2025-03-04] MEDS ORDERED: ONDANSETRON HCL/PF 4 MG/2 ML VIAL ONE (11:04)
[2025-03-04] MEDS ORDERED: FAMOTIDINE/PF INJ 20 MG/2 ML VIAL IV ONE (11:05)
[2025-03-04] MEDS ORDERED: LIDOCAINE VISCOUS 2% UD 15 ML UDC ONE (11:05)
[2025-03-04] MEDS ORDERED: MAG HYDROX/AL HYDROX/SIMETH 30 ML UDC ONE (11:05)
[2025-03-04] MEDS ORDERED: LORAZEPAM INJ 2 MG/ML VIAL ONE ×2 (11:07→12:00)
[2025-03-04 11:12] LABS: CALCIUM, SERUM 8.8 mg/dL (8.5-10.1); CREATININE 1.1 mg/dL (0.6-1.3); POTASSIUM 4.9 mmol/L (3.5-5.1)
[2025-03-04 11:17] LABS: ALBUMIN 4.4 g/dL (3.4-5.0); BILIRUBIN,DIRECT 0.2 mg/dL (0.0-0.2); BILIRUBIN,TOTAL 0.7 mg/dL (0.2-1.0); TOTAL PROTEIN, SERUM 7.7 g/dL (6.4-8.2)
[2025-03-04] MEDS: MAG HYDROX/AL HYDROX/SIMETH 30 ML UDC PO ONE (11:19)
[2025-03-04] MEDS: LIDOCAINE VISCOUS 2% UD 15 ML UDC MM ONE (11:19)
[2025-03-04] MEDS: ONDANSETRON HCL/PF 4 MG/2 ML VIAL IVP ONE (11:20)
[2025-03-04] MEDS: FAMOTIDINE/PF INJ 20 MG/2 ML VIAL IV ONE (11:21)
[2025-03-04] MEDS: LORAZEPAM INJ 2 MG/ML VIAL IV ONE ×2 (11:23→12:08)
[2025-03-04] MEDS ORDERED: ACETAMINOPHEN ES 500 MG TABLET ONE (11:58)
[2025-03-04] MEDS: ACETAMINOPHEN 325 MG TABLET PO ONE (12:08)
[2025-03-04] MEDS ORDERED: CHLO25CA22 PO (12:22)
[2025-03-04] MEDS ORDERED: FAMO-131 PO (12:22)
[2025-03-04] MEDS ORDERED: ONDA4TAB5 PO (12:22)
[2025-03-04 13:15] VITALS: BP 146/74; TEMP 97.9; O2SAT 98
== END 2025-03-04 13:17 | disposition home or self-care (01) ==
LOC: ER 10:41
DX: F10.139 Alcohol abuse with withdrawal, unspecified (principal); E87.29 Other acidosis; K29.20 Alcoholic gastritis without bleeding; I10 Essential (primary) hypertension; F17.200 Nicotine dependence, unspecified, uncomplicated; Z79.899 Other long term (current) drug therapy; Z87.19 Personal history of other diseases of the digestive system; Y90.4 Blood alcohol level of 80-99 mg/100 ml
CPT/HCPCS: 99285; 96374; 96361; 96375; 93005; 71045; 96376; 85025; 80048; 83690; 80076; 36415; 80320; J2060 ×2; J1308; J2405; G0480

== ENCOUNTER 2025-04-13 03:12 | Inpatient (IN) | payer BC ==
[~2025-04-13] VITALS: Ht 304.8 cm; Wt 79.4 kg
[2025-04-13] VITALS (8 sets, daily range): BP systolic 117–145; BP diastolic 81–95; TEMP 98.1–98.8; O2SAT 94–99
[~2025-04-13 03:12] MED LIST changes: +CHLO25CA22 PO; +FAMO-131 PO; +ONDA4TAB5 PO
[2025-04-13 04:28] LABS: APPEARANCE,URINE CLEAR (CLEAR); BLOOD, URINE NEGATIVE Ery/uL (NEGATIVE); LEUKOCYTE ESTERASE ,URINE NEGATIVE (NEGATIVE); NITRITE, URINE NEGATIVE (NEGATIVE); UGLUCOSE NEGATIVE (NEGATIVE)
[2025-04-13 04:30] LABS: PLATELET COUNT (AUTO) 177 K/uL (150-450); RED BLOOD CELL COUNT(AUTO) 3.83 MIL/uL (4.5-6.0); RED CELL DISTRIBUTION WIDTH 14.4 % (11.5-15.0); WHITE BLOOD COUNT (AUTO) 7.9 K/uL (4.3-11.0)
[2025-04-13 04:33] LABS: ADD URINE CULTURE YES; SQUAMOUS EPITHELIAL CELL,UR Moderate /HPF (None Seen)
[2025-04-13 04:34] LABS: COARSE GRANULAR CASTS,URINE Few /LPF (None Seen)
[2025-04-13 04:36] LABS: CALCIUM, SERUM 8.1 mg/dL (8.5-10.1); CREATININE 1.1 mg/dL (0.6-1.3); SODIUM SERUM 133.0 mmol/L (136-145); UREA NITROGEN, BLOOD 23.0 mg/dL (7-18)
[2025-04-13 04:41] LABS: AMPHETAMINE, URINE NEGATIVE (NEGATIVE); BARBITURATE, URINE NEGATIVE (NEGATIVE); BENZODIAZEPINE, URINE NEGATIVE (NEGATIVE); CANNABINOID, URINE POSITIVE (NEGATIVE); COCCAINE, URINE NEGATIVE (NEGATIVE); OPIATE, URINE NEGATIVE (NEGATIVE)
[2025-04-13 04:42] LABS: ALCOHOL, BLOOD 230.0 mg/dL (0-10); ASPARTATE AMINOTRANSFERASE 57.0 U/L (15-37); TOTAL PROTEIN, SERUM 6.8 g/dL (6.4-8.2)
[2025-04-13] MEDS ORDERED: ONDANSETRON HCL/PF 4 MG/2 ML VIAL ONE ×2 (04:45→06:09)
[2025-04-13] MEDS: IV NS 0.9% 1,000 ML IV ONE (04:54)
[2025-04-13] MEDS: ONDANSETRON HCL/PF - ER 4 MG/2 ML VIAL IV ONE ×2 (04:55→06:15)
[2025-04-13] MEDS ORDERED: LORAZEPAM INJ 2 MG/ML VIAL ONE (06:10)
[2025-04-13] MEDS: LORAZEPAM INJ 2 MG/ML VIAL IV ONE (06:15)
[2025-04-13] MEDS ORDERED: IV NS 0.9% 1,000 ML IV PRN (06:30)
[2025-04-13] MEDS ORDERED: PHARMACY ADD 1 AMP MVI TO IVF DAILY ONE BAG XX PRN (06:30)
[2025-04-13] MEDS ORDERED: MAGNESIUM HYDROXIDE 30 ML UDC PO PRN (06:30)
[2025-04-13] MEDS ORDERED: ACETAMINOPHEN 325 MG TABLET PO PRN (06:30)
[2025-04-13] MEDS ORDERED: ONDANSETRON HCL/PF 4 MG/2 ML VIAL IVP PRN (06:30)
[2025-04-13] MEDS ORDERED: MAG HYDROX/AL HYDROX/SIMETH 30 ML UDC PO PRN (06:30)
[2025-04-13] MEDS ORDERED: FAMO20TA8 PO (07:53)
[2025-04-13] MEDS ORDERED: ESCI5TAB PO (07:53)
[2025-04-13] MEDS: CHLORDIAZEPOXIDE HCL 25 MG CAPSULE PO SCH ×2 (08:00→17:28)
[2025-04-13] MEDS ORDERED: CHLORDIAZEPOXIDE HCL 25 MG CAPSULE ONE (08:10)
[2025-04-13] MEDS ORDERED: PANTOPRAZOLE 40 MG TABLET.DR PO ONE (08:11)
[2025-04-13] MEDS: PANTOPRAZOLE 40 MG TABLET.DR PO SCH (08:13)
[2025-04-13] MEDS: THIAMINE HCL 100 MG TABLET PO SCH (09:09)
[2025-04-13] MEDS: MVI ADULT IV ONE (09:18)
[2025-04-13] MEDS: NS IV ONE (09:18)
[2025-04-13] MEDS: LORAZEPAM INJ 2 MG/ML VIAL IV PRN ×2 (10:37→17:55)
[2025-04-13] MEDS: GABAPENTIN 100 MG CAPSULE PO SCH (13:40)
[2025-04-13] MEDS: LORAZEPAM INJ 2 MG/ML VIAL IM PRN (22:51)
[2025-04-13] MEDS: IV NS 0.9% 1,000 ML IV PRN (23:57)
[2025-04-14] VITALS: BP 134/98; TEMP 97.7; O2SAT 97
[2025-04-14 04:00] VITALS: BP 126/89; TEMP 98.6; O2SAT 97
[2025-04-14 06:40] LABS: PLATELET COUNT (AUTO) 135 K/uL (150-450); RED BLOOD CELL COUNT(AUTO) 3.32 MIL/uL (4.5-6.0); RED CELL DISTRIBUTION WIDTH 14.2 % (11.5-15.0); WHITE BLOOD COUNT (AUTO) 7.4 K/uL (4.3-11.0)
[2025-04-14 07:06] LABS: ASPARTATE AMINOTRANSFERASE 39.0 U/L (15-37); CALCIUM, SERUM 8.3 mg/dL (8.5-10.1); CREATININE 0.7 mg/dL (0.6-1.3); PHOSPHORUS 2.8 mg/dL (2.5-4.9); SODIUM SERUM 136.0 mmol/L (136-145); TOTAL PROTEIN, SERUM 5.7 g/dL (6.4-8.2); UREA NITROGEN, BLOOD 19.0 mg/dL (7-18)
[2025-04-14] MEDS: POTASSIUM CHLORIDE 20 MEQ TAB.PRT.SR PO SCH (11:08)
== END 2025-04-14 13:00 | disposition left against medical advice (07) | DRG 894 ==
LOC: ER 03:17 → MED 07:31 → TELE 08:34
PROVIDERS: ADMIT Nurse Practitioner Acute Care; ATTEND Internal Medicine
DX: F10.239 Alcohol dependence with withdrawal, unspecified (principal); E87.1 Hypo-osmolality and hyponatremia; E86.0 Dehydration; I10 Essential (primary) hypertension; D64.9 Anemia, unspecified; R73.9 Hyperglycemia, unspecified; R74.01 Elevation of levels of liver transaminase levels; Y90.7 Blood alcohol level of 200-239 mg/100 ml; Z85.810 Personal history of malignant neoplasm of tongue; Z87.891 Personal history of nicotine dependence; N40.0 Benign prostatic hyperplasia without lower urinary tract symptoms; F12.90 Cannabis use, unspecified, uncomplicated
CPT/HCPCS: 36415; 70450-TC; 80048-TC; 80053-TC; 80076-TC; 81001; 83735-TC; 84100-TC; 84443-TC; 85025-TC; 87081-TC; 87086-TC; 98960; A4223; G0378; G0480; J2060; J2405; J7030

== ENCOUNTER 2025-05-05 11:44 | Emergency (ER) | payer BC ==
[~2025-05-05] VITALS: Ht 177.8 cm; Wt 79.4 kg
[~2025-05-05 11:44] MED LIST changes: -CHLO25CA22 PO; -ERGO500093 PO; -ESCI10TA PO; +ESCI5TAB PO; -FAMO-131 PO; +FAMO20TA8 PO; -HYDR-3972 PO; -ONDA4TAB11 PO; -ONDA4TAB5 PO; -OXYM15MI4 NS; -PANT40TA2 PO; -THIA100T74 PO; -TRAZ-182 PO
[2025-05-05] MEDS ORDERED: LORAZEPAM INJ 2 MG/ML VIAL ONE (12:30)
[2025-05-05 12:39] LABS: PLATELET COUNT (AUTO) 223 K/uL (150-450); RED BLOOD CELL COUNT(AUTO) 3.86 MIL/uL (4.5-6.0); RED CELL DISTRIBUTION WIDTH 15.5 % (11.5-15.0); WHITE BLOOD COUNT (AUTO) 8.4 K/uL (4.3-11.0)
[2025-05-05] MEDS: LORAZEPAM INJ 2 MG/ML VIAL IV ONE (12:39)
[2025-05-05] MEDS: IV NS 0.9% 1,000 ML BAG IV ONE (12:39)
[2025-05-05] MEDS ORDERED: ONDANSETRON HCL/PF 4 MG/2 ML VIAL ONE (12:41)
[2025-05-05] MEDS: ONDANSETRON HCL/PF 4 MG/2 ML VIAL IV ONE (12:44)
[2025-05-05 12:48] LABS: CALCIUM, SERUM 8.8 mg/dL (8.5-10.1); CREATININE 1.1 mg/dL (0.6-1.3); SODIUM SERUM 137.0 mmol/L (136-145); UREA NITROGEN, BLOOD 18.0 mg/dL (7-18)
[2025-05-05 12:55] LABS: ASPARTATE AMINOTRANSFERASE 42.0 U/L (15-37); TOTAL PROTEIN, SERUM 6.6 g/dL (6.4-8.2)
[2025-05-05] MEDS ORDERED: PHENOBARBITAL SODIUM 130 MG/ML VIAL ONE (15:42)
[2025-05-05] MEDS: PHENOBARBITAL SODIUM 130 MG/ML VIAL IV ONE (15:50)
[2025-05-05 16:30] VITALS: BP 138/91; O2SAT 95
== END 2025-05-05 17:30 | disposition short-term general hospital (02) ==
LOC: ER 11:57
DX: E86.0 Dehydration (principal); F10.230 Alcohol dependence with withdrawal, uncomplicated; F17.200 Nicotine dependence, unspecified, uncomplicated; I10 Essential (primary) hypertension; Z79.899 Other long term (current) drug therapy; Z85.810 Personal history of malignant neoplasm of tongue; Z87.19 Personal history of other diseases of the digestive system; Z20.822 Contact with and (suspected) exposure to COVID-19; Y90.9 Presence of alcohol in blood, level not specified
CPT/HCPCS: 99285; 96374; 96375; 96361; 87426; 93005; 85025; 80048; 83690; 80076; 36415; J2060; J2560; J2405; J7030

== ENCOUNTER 2025-05-24 22:04 | Emergency (ER) | payer BC ==
[~2025-05-24] VITALS: Ht 177.8 cm; Wt 81.6 kg
[2025-05-24] MEDS ORDERED: ONDANSETRON HCL/PF 4 MG/2 ML VIAL ONE (23:50)
[2025-05-24] MEDS: IV NS 0.9% 1,000 ML BAG IV ONE (23:53)
[2025-05-24] MEDS: ONDANSETRON HCL/PF 4 MG/2 ML VIAL IV ONE (23:53)
[2025-05-24 23:59] LABS: PLATELET COUNT (AUTO) 351 K/uL (150-450); RED BLOOD CELL COUNT(AUTO) 3.80 MIL/uL (4.5-6.0); RED CELL DISTRIBUTION WIDTH 15.6 % (11.5-15.0); WHITE BLOOD COUNT (AUTO) 8.4 K/uL (4.3-11.0)
[2025-05-25 00:03] LABS: CALCIUM, SERUM 8.5 mg/dL (8.5-10.1); CREATININE 1.0 mg/dL (0.6-1.3); SODIUM SERUM 139.0 mmol/L (136-145); UREA NITROGEN, BLOOD 7.0 mg/dL (7-18)
[2025-05-25] MEDS ORDERED: ONDA4TAB5 PO (00:56)
[2025-05-25] MEDS ORDERED: CHLORDIAZEPOXIDE HCL 25 MG CAPSULE ONE (01:06)
[2025-05-25] MEDS: CHLORDIAZEPOXIDE HCL 25 MG CAPSULE PO ONE (01:13)
[2025-05-25 01:15] VITALS: BP 36/71; TEMP 98; O2SAT 95
== END 2025-05-25 01:16 | disposition home or self-care (01) ==
LOC: ER 22:11
DX: R11.2 Nausea with vomiting, unspecified (principal); F10.239 Alcohol dependence with withdrawal, unspecified; F17.200 Nicotine dependence, unspecified, uncomplicated; I11.9 Hypertensive heart disease without heart failure; Z79.899 Other long term (current) drug therapy; Z85.810 Personal history of malignant neoplasm of tongue; Z87.19 Personal history of other diseases of the digestive system; Y90.9 Presence of alcohol in blood, level not specified
CPT/HCPCS: 99285; 96374; 96361; 85025; 80048; 36415; 98960; J2405; J7030

== ENCOUNTER 2025-06-22 19:30 | Emergency (ER) | payer BC ==
[~2025-06-22] VITALS: Ht 172.7 cm; Wt 82.2 kg
[~2025-06-22 19:30] MED LIST changes: +ONDA4TAB5 PO
[2025-06-22] MEDS: ONDANSETRON HCL/PF 4 MG/2 ML VIAL IVP ONE (20:38)
[2025-06-22] MEDS ORDERED: ONDANSETRON HCL/PF 4 MG/2 ML VIAL ONE (20:38)
[2025-06-22 20:41] LABS: PLATELET COUNT (AUTO) 310 K/uL (150-450); RED BLOOD CELL COUNT(AUTO) 3.81 MIL/uL (4.5-6.0); RED CELL DISTRIBUTION WIDTH 15.2 % (11.5-15.0); WHITE BLOOD COUNT (AUTO) 5.3 K/uL (4.3-11.0)
[2025-06-22 20:50] LABS: CALCIUM, SERUM 9.2 mg/dL (8.5-10.1); CREATININE 0.7 mg/dL (0.6-1.3); SODIUM SERUM 133 mmol/L (136-145); UREA NITROGEN, BLOOD 6 mg/dL (7-18)
[2025-06-22 20:55] LABS: ASPARTATE AMINOTRANSFERASE 42 U/L (15-37); TOTAL PROTEIN, SERUM 6.7 g/dL (6.4-8.2)
[2025-06-22] MEDS ORDERED: KETOROLAC TROMETHAMINE 15 MG/ML VIAL ONE (21:08)
[2025-06-22] MEDS ORDERED: PANTOPRAZOLE 40 MG VIAL ONE (21:08)
[2025-06-22] MEDS: IV NS 0.9% 1,000 ML BAG IV ONE (21:12)
[2025-06-22] MEDS: PANTOPRAZOLE 40 MG VIAL IV ONE (21:12)
[2025-06-22] MEDS: KETOROLAC TROMETHAMINE 15 MG/ML VIAL IV ONE (21:12)
[2025-06-22] MEDS ORDERED: PHENOBARBITAL SODIUM 130 MG/ML VIAL ONE (21:52)
[2025-06-22] MEDS ORDERED: PHENOBARBITAL SODIUM IV ONE (22:00)
[2025-06-22] MEDS ORDERED: NS 0.9% IV ONE (22:00)
[2025-06-22] MEDS: PHENOBARBITAL SODIUM IV ONE (22:21)
[2025-06-22] MEDS: NS 0.9% IV ONE (22:21)
[2025-06-22] MEDS ORDERED: MAG HYDROX/AL HYDROX/SIMETH 30 ML UDC ONE (22:24)
[2025-06-22] MEDS: MAG HYDROX/AL HYDROX/SIMETH 30 ML UDC PO ONE (22:25)
[2025-06-23] MEDS ORDERED: PANT40TA49 PO (00:05)
[2025-06-23] MEDS ORDERED: ONDA4TAB11 PO (00:05)
[2025-06-23 00:28] VITALS: BP 146/95; TEMP 98.6; O2SAT 94
== END 2025-06-23 00:28 | disposition home or self-care (01) ==
LOC: ER 19:33
DX: R11.2 Nausea with vomiting, unspecified (principal); F10.239 Alcohol dependence with withdrawal, unspecified; R10.13 Epigastric pain; F17.200 Nicotine dependence, unspecified, uncomplicated; I11.9 Hypertensive heart disease without heart failure; Z79.899 Other long term (current) drug therapy; Z85.810 Personal history of malignant neoplasm of tongue; Z87.19 Personal history of other diseases of the digestive system; Y90.9 Presence of alcohol in blood, level not specified
CPT/HCPCS: 99285; 96365; 96375; 76705; 96361; 93005; 85025; 80048; 83690; 80076; 36415; 84484; J1885; J2560; J2405; J2470; J7030

== ENCOUNTER 2025-07-19 19:35 | Inpatient (IN) | payer BC ==
[~2025-07-19] VITALS: Ht 177.8 cm; Wt 76.9 kg
[~2025-07-19 19:35] MED LIST changes: +ONDA4TAB11 PO; +PANT40TA49 PO
[2025-07-19] MEDS ORDERED: FAMOTIDINE/PF INJ 20 MG/2 ML VIAL IV ONE (21:34)
[2025-07-19] MEDS: IV NS 0.9% 1,000 ML BAG IV ONE (21:42)
[2025-07-19] MEDS: FAMOTIDINE/PF INJ 20 MG/2 ML VIAL IV ONE (21:42)
[2025-07-19 21:45] LABS: PLATELET COUNT (AUTO) 229 K/uL (150-450); RED BLOOD CELL COUNT(AUTO) 4.13 MIL/uL (4.5-6.0); RED CELL DISTRIBUTION WIDTH 15.2 % (11.5-15.0); WHITE BLOOD COUNT (AUTO) 11.0 K/uL (4.3-11.0)
[2025-07-19 21:59] LABS: ASPARTATE AMINOTRANSFERASE 36 U/L (15-37); CALCIUM, SERUM 9.2 mg/dL (8.5-10.1); CREATININE 1.5 mg/dL (0.6-1.3); SODIUM SERUM 143 mmol/L (136-145); TOTAL PROTEIN, SERUM 7.4 g/dL (6.4-8.2); UREA NITROGEN, BLOOD 24 mg/dL (7-18)
[2025-07-19] MEDS ORDERED: METOCLOPRAMIDE HCL 10 MG/2 ML VIAL ONE (22:00)
[2025-07-19] MEDS: METOCLOPRAMIDE HCL 10 MG/2 ML VIAL IV ONE (22:09)
[2025-07-19] MEDS ORDERED: DIAZEPAM 5 MG/ML 2 ML DISP.SYRIN ONE (22:35)
[2025-07-19] MEDS: DIAZEPAM 5 MG/ML 2 ML DISP.SYRIN IV ONE (22:44)
[2025-07-19] MEDS ORDERED: PHENOBARBITAL SODIUM 130 MG/ML VIAL ONE (23:28)
[2025-07-19] MEDS: NS 0.9% IV ONE (23:32)
[2025-07-19] MEDS: PHENOBARBITAL SODIUM IV ONE (23:32)
[2025-07-20 00:58] LABS: APPEARANCE,URINE CLEAR (CLEAR); BLOOD, URINE NEGATIVE Ery/uL (NEGATIVE); LEUKOCYTE ESTERASE ,URINE NEGATIVE (NEGATIVE); NITRITE, URINE NEGATIVE (NEGATIVE); UGLUCOSE NEGATIVE (NEGATIVE)
[2025-07-20] MEDS ORDERED: PHENOBARBITAL SODIUM 130 MG/ML VIAL ONE ×2 (01:07→02:57)
[2025-07-20 01:08] LABS: ADD URINE CULTURE NO; SQUAMOUS EPITHELIAL CELL,UR 0-2 /HPF (None Seen)
[2025-07-20 01:09] LABS: FINE GRANULAR CASTS,URINE Moderate /LPF (None Seen)
[2025-07-20] MEDS: PHENOBARBITAL SODIUM IV ONE ×2 (01:20→02:57)
[2025-07-20] MEDS: NS 0.9% IV ONE ×2 (01:20→02:57)
[2025-07-20] MEDS ORDERED: DIAZEPAM 5 MG/ML 2 ML DISP.SYRIN ONE (03:59)
[2025-07-20] MEDS: DIAZEPAM 5 MG/ML 2 ML DISP.SYRIN IV ONE (04:13)
[2025-07-20] MEDS ORDERED: ONDANSETRON HCL/PF 4 MG/2 ML VIAL IVP PRN (05:30)
[2025-07-20] MEDS ORDERED: ACETAMINOPHEN 325 MG TABLET PO PRN (05:30)
[2025-07-20] MEDS ORDERED: MAG HYDROX/AL HYDROX/SIMETH 30 ML UDC PO PRN (05:30)
[2025-07-20] MEDS ORDERED: Z GUARD REMEDY 4 OZ OINT TP PRN (05:30)
[2025-07-20] MEDS ORDERED: MAGNESIUM HYDROXIDE 30 ML UDC PO PRN (05:30)
[2025-07-20] MEDS ORDERED: LORAZEPAM INJ 2 MG/ML VIAL IV PRN (05:30)
[2025-07-20 06:13] LABS: ASPARTATE AMINOTRANSFERASE 29.0 U/L (15-37); CALCIUM, SERUM 8.3 mg/dL (8.5-10.1); CREATININE 1.0 mg/dL (0.6-1.3); SODIUM SERUM 138.0 mmol/L (136-145); TOTAL PROTEIN, SERUM 6.1 g/dL (6.4-8.2); UREA NITROGEN, BLOOD 23.0 mg/dL (7-18)
[2025-07-20 08:00] VITALS: BP 136/82; TEMP 98; O2SAT 96
[2025-07-20] MEDS: CHLORDIAZEPOXIDE HCL 25 MG CAPSULE PO SCH ×2 (08:13→16:18)
[2025-07-20] MEDS: ESCITALOPRAM OXALATE (10 MG) 10 MG TABLET PO SCH (08:13)
[2025-07-20] MEDS: PANTOPRAZOLE 40 MG VIAL IV SCH (08:13)
[2025-07-20] MEDS: TAMSULOSIN 0.4 MG CAP.SR.24H PO SCH (08:13)
[2025-07-20] MEDS: IV NS 0.9% 1,000 ML IV PRN (08:15)
[2025-07-20] MEDS: SODIUM ZIRCONIUM CYCLOSILICATE 10 GM POWD.PACK PO ONE (08:35)
[2025-07-20] MEDS: Thiamine 100 MG in IV D5W 50 ML IV SCH (09:56)
[2025-07-20 15:38] LABS: CALCIUM, SERUM 8.6 mg/dL (8.5-10.1); CREATININE 0.7 mg/dL (0.6-1.3); SODIUM SERUM 141.0 mmol/L (136-145); UREA NITROGEN, BLOOD 17.0 mg/dL (7-18)
[2025-07-20 16:03] VITALS: BP 138/80; TEMP 98.2; O2SAT 96
[2025-07-20 18:43] LABS: CREATININE, URINE 101.3 MG/DL (30.0-125.0); URINE SODIUM, RANDOM 72.0 mmol/l (40-220); URINE TOTAL PROTEIN 28.6 mg/dL (0-11.9)
[2025-07-20 20:00] VITALS: BP 149/106; TEMP 98.6; O2SAT 100
[2025-07-20] MEDS: ZOLPIDEM TARTRATE 5 MG TABLET PO PRN (21:16)
[2025-07-21] VITALS: BP 121/88; TEMP 98.4; O2SAT 98
[2025-07-21 04:00] VITALS: BP 135/101; TEMP 97.7; O2SAT 97
[2025-07-21 06:24] LABS: RED BLOOD CELL COUNT(AUTO) 3.59 MIL/uL (4.5-6.0); RED CELL DISTRIBUTION WIDTH 15.5 % (11.5-15.0); WHITE BLOOD COUNT (AUTO) 4.7 K/uL (4.3-11.0)
[2025-07-21 06:35] LABS: CALCIUM, SERUM 8.7 mg/dL (8.5-10.1); CREATININE 0.6 mg/dL (0.6-1.3); PHOSPHORUS 1.9 mg/dL (2.5-4.9); SODIUM SERUM 141.0 mmol/L (136-145); UREA NITROGEN, BLOOD 11.0 mg/dL (7-18)
[2025-07-21 06:43] LABS: PLATELET COUNT (AUTO) 133 K/uL (150-450)
[2025-07-21 08:00] VITALS: BP 149/98; TEMP 97.5; O2SAT 97
[2025-07-21] MEDS: POTASSIUM CHLORIDE 20 MEQ POWDER PACKET PO SCH (10:12)
[2025-07-21] MEDS: THIAMINE HCL 100 MG TABLET PO SCH (10:53)
[2025-07-21] MEDS: K PHOS NEUTRAL 250 MG TABLET PO ONE (16:30)
[2025-07-21 20:00] VITALS: BP 131/91; TEMP 98.4; O2SAT 95
[2025-07-21] MEDS: LORAZEPAM 0.5 MG TABLET PO PRN (20:27)
[2025-07-21 20:45] VITALS: BP 133/94; O2SAT 98
[2025-07-21 21:05] VITALS: BP 136/90; O2SAT 98
[2025-07-22] VITALS: BP 118/92; TEMP 98.6; O2SAT 97
[2025-07-22 04:00] VITALS: BP 100/64; TEMP 97.9; O2SAT 97
[2025-07-22 07:18] LABS: CALCIUM, SERUM 8.7 mg/dL (8.5-10.1); CREATININE 0.7 mg/dL (0.6-1.3); PHOSPHORUS 3.6 mg/dL (2.5-4.9); SODIUM SERUM 142.0 mmol/L (136-145); UREA NITROGEN, BLOOD 6.0 mg/dL (7-18)
[2025-07-22 08:00] VITALS: BP 124/84; TEMP 97.3; O2SAT 97
[2025-07-22] MEDS: PANTOPRAZOLE 40 MG/PACK PACK PO SCH (08:14)
[2025-07-22] MEDS ORDERED: THIAMINE HCL 100 MG TABLET PO SCH (09:00)
[2025-07-22] MEDS: POTASSIUM CHLORIDE 20 MEQ POWDER PACKET PO ONE (09:26)
[2025-07-22 11:00] VITALS: BP 113/93; TEMP 97.9; O2SAT 100
[2025-07-22] MEDS ORDERED: Thiamine HCL PO (11:04)
[2025-07-22] MEDS ORDERED: FOLI0.4T6 PO (11:04)
== END 2025-07-22 16:28 | disposition home or self-care (01) | DRG 896 ==
LOC: ER 19:37 → TELE 07-20 06:14
PROVIDERS: ADMIT Nurse Practitioner Family
DX: F10.139 Alcohol abuse with withdrawal, unspecified (principal); N17.0 Acute kidney failure with tubular necrosis; E44.1 Mild protein-calorie malnutrition; E87.29 Other acidosis; K29.20 Alcoholic gastritis without bleeding; K21.9 Gastro-esophageal reflux disease without esophagitis; I10 Essential (primary) hypertension; Z85.810 Personal history of malignant neoplasm of tongue; E87.5 Hyperkalemia; E88.09 Other disorders of plasma-protein metabolism, not elsewhere classified; Z87.891 Personal history of nicotine dependence; Z87.11 Personal history of peptic ulcer disease; N40.0 Benign prostatic hyperplasia without lower urinary tract symptoms; Z98.890 Other specified postprocedural states; E86.9 Volume depletion, unspecified; Z68.24 Body mass index [BMI] 24.0-24.9, adult; Y90.9 Presence of alcohol in blood, level not specified
CPT/HCPCS: 36415; 80048-TC; 80053-TC; 80076-TC; 81001; 82570-TC; 83690-TC; 83735-TC; 84100-TC; 84300-TC; 84484-TC; 85025-TC; 87086-TC; A4223; G0378; J1308; J2470; J2560; J2765; J3360; J3411; J7030; J7060

== ENCOUNTER 2025-08-30 13:33 | Emergency (ER) | payer BC ==
[~2025-08-30] VITALS: Ht 177.8 cm; Wt 76.7 kg
[~2025-08-30 13:33] MED LIST changes: -FAMO20TA8 PO; +FOLI0.4T6 PO; -ONDA4TAB5 PO; +Thiamine HCL PO
[2025-08-30 13:57] LABS: PLATELET COUNT (AUTO) 246 K/uL (150-450); RED BLOOD CELL COUNT(AUTO) 4.10 MIL/uL (4.5-6.0); RED CELL DISTRIBUTION WIDTH 15.9 % (11.5-15.0); WHITE BLOOD COUNT (AUTO) 10.5 K/uL (4.3-11.0)
[2025-08-30 14:05] LABS: CALCIUM, SERUM 8.2 mg/dL (8.5-10.1); CREATININE 0.8 mg/dL (0.6-1.3); SODIUM SERUM 139.0 mmol/L (136-145); UREA NITROGEN, BLOOD 22.0 mg/dL (7-18)
[2025-08-30 14:11] LABS: ASPARTATE AMINOTRANSFERASE 25.0 U/L (15-37); TOTAL PROTEIN, SERUM 6.7 g/dL (6.4-8.2)
[2025-08-30] MEDS: IV NS 0.9% 1,000 ML BAG IV ONE (14:20)
[2025-08-30] MEDS ORDERED: LORAZEPAM INJ 2 MG/ML VIAL ONE (14:34)
[2025-08-30] MEDS ORDERED: ONDANSETRON HCL/PF 4 MG/2 ML VIAL ONE (14:34)
[2025-08-30] MEDS: LORAZEPAM INJ 2 MG/ML VIAL IV ONE (14:40)
[2025-08-30] MEDS: ONDANSETRON HCL/PF - ER 4 MG/2 ML VIAL IV ONE (14:40)
[2025-08-30] MEDS ORDERED: MAG HYDROX/AL HYDROX/SIMETH 30 ML UDC ONE (16:31)
[2025-08-30] MEDS: MAG HYDROX/AL HYDROX/SIMETH 30 ML UDC PO ONE (16:39)
[2025-08-30] MEDS ORDERED: ONDA4TAB5 PO (16:59)
[2025-08-30 17:16] VITALS: BP 70/66; TEMP 98.8; O2SAT 99
== END 2025-08-30 17:38 | disposition home or self-care (01) ==
LOC: ER 13:45
DX: K29.70 Gastritis, unspecified, without bleeding (principal); F10.20 Alcohol dependence, uncomplicated; F17.200 Nicotine dependence, unspecified, uncomplicated; I11.9 Hypertensive heart disease without heart failure; Z79.899 Other long term (current) drug therapy; Z85.810 Personal history of malignant neoplasm of tongue; Z87.19 Personal history of other diseases of the digestive system
CPT/HCPCS: 99284; 96374; 96361; 96375; 85025; 80048; 83690; 80076; 36415; J2060; J2405 ×2; J7030

== ENCOUNTER 2025-09-14 05:40 | Emergency (ER) | payer BC ==
[~2025-09-14] VITALS: Ht 177.8 cm; Wt 79.4 kg
[~2025-09-14 05:40] MED LIST changes: +ONDA4TAB5 PO
[2025-09-14] MEDS ORDERED: ONDANSETRON HCL/PF 4 MG/2 ML VIAL ONE (06:26)
[2025-09-14] MEDS ORDERED: PHENOBARBITAL SODIUM 130 MG/ML VIAL ONE ×2 (06:26→12:14)
[2025-09-14] MEDS: ONDANSETRON HCL/PF - ER 4 MG/2 ML VIAL IV ONE (06:34)
[2025-09-14] MEDS: PHENOBARBITAL SODIUM 780 MG in IV NS 0.9% 100 ML IV ONE (06:34)
[2025-09-14] MEDS: IV NS 0.9% 1,000 ML BAG IV ONE ×2 (06:34→10:54)
[2025-09-14 09:22] LABS: PLATELET COUNT (AUTO) 209 K/uL (150-450); RED BLOOD CELL COUNT(AUTO) 3.62 MIL/uL (4.5-6.0); RED CELL DISTRIBUTION WIDTH 16.3 % (11.5-15.0); WHITE BLOOD COUNT (AUTO) 7.7 K/uL (4.3-11.0)
[2025-09-14] MEDS ORDERED: KETOROLAC TROMETHAMINE 15 MG/ML VIAL ONE (09:25)
[2025-09-14 09:29] LABS: CALCIUM, SERUM 8.3 mg/dL (8.5-10.1); CREATININE 0.9 mg/dL (0.6-1.3); SODIUM SERUM 141.0 mmol/L (136-145); UREA NITROGEN, BLOOD 15.0 mg/dL (7-18)
[2025-09-14] MEDS: KETOROLAC TROMETHAMINE 15 MG/ML VIAL IV ONE (09:30)
[2025-09-14 09:34] LABS: ASPARTATE AMINOTRANSFERASE 72.0 U/L (15-37); TOTAL PROTEIN, SERUM 6.3 g/dL (6.4-8.2)
[2025-09-14] MEDS ORDERED: IOHEXOL-300 100 ML VIAL IV ONE (09:39)
[2025-09-14] MEDS ORDERED: IV NS 0.9% 250 ML IV ONE (09:39)
[2025-09-14 09:42] LABS: LACTIC ACID 3.6 mmol/L (0.4-2.0)
[2025-09-14 10:00] VITALS: TEMP 98.5
[2025-09-14] MEDS ORDERED: NS 0.9% IV ONE (11:30)
[2025-09-14] MEDS ORDERED: PHENOBARBITAL SODIUM IV ONE (11:30)
[2025-09-14] MEDS: PHENOBARBITAL SODIUM 130 MG/ML VIAL IV ONE (12:22)
[2025-09-14] MEDS ORDERED: CIPR500T5 PO (12:38)
[2025-09-14] MEDS ORDERED: ONDA4TAB11 PO (12:38)
[2025-09-14] MEDS ORDERED: PRED50TA PO (12:38)
[2025-09-14] MEDS ORDERED: IBUP-1957 PO (12:38)
[2025-09-14 13:14] VITALS: BP 140/98; O2SAT 96
== END 2025-09-14 13:13 | disposition home or self-care (01) ==
LOC: ER 05:47
DX: F10.239 Alcohol dependence with withdrawal, unspecified (principal); K52.9 Noninfective gastroenteritis and colitis, unspecified; R11.2 Nausea with vomiting, unspecified; I11.9 Hypertensive heart disease without heart failure; F17.200 Nicotine dependence, unspecified, uncomplicated; K57.30 Diverticulosis of large intestine without perforation or abscess without bleeding; K76.0 Fatty (change of) liver, not elsewhere classified; N40.0 Benign prostatic hyperplasia without lower urinary tract symptoms; Z79.1 Long term (current) use of non-steroidal anti-inflammatories (NSAID); Z79.52 Long term (current) use of systemic steroids; Z79.899 Other long term (current) drug therapy; Z85.810 Personal history of malignant neoplasm of tongue; Z87.19 Personal history of other diseases of the digestive system; Y90.9 Presence of alcohol in blood, level not specified
CPT/HCPCS: 99285; 74177; 96365; 96375; 96361; 85025; 80048; 83605 ×2; 83690; 80076; 36415; J1885; J2560 ×3; J2405 ×2; J7030 ×3; J7050; Q9967